=== PATIENT | female | born 1960 | race Caucasian/White ===

== ENCOUNTER 2024-08-02 13:31 | Outpatient (CLI) | payer MEDICARE, OTHER, SELFPAY ==
--- NOTE | ~2024-08-02 | MR_ITS ---
MRI of the abdomen: Clinical indication: Normal liver enzymes. Technique: Coronal SSFSE ARC, WATER:coronal LAVA-FLEX, Coronal 2D FIESTA FatSat, Axial SSFSE BH ARC, Axial 3D DualEcho BH, Axial SSFSE-IR, Axial DWI b=500, Axial 2D FIESTA FatSat, pre and dynamic postco ntrast Axial LAVA ARC, postcontrast Coronal In and Opposed phase LAVA FLEX. Following intravenous ad ministration of 19 cc MultiHance gadolinium, T1-weighted fat-sat imaging was performed in the axial a nd coronal planes. Findings: Common bile duct is dilated up to 12 mm, which is most likely related to prior cholecystect darrius. No filling defects are seen within the CBD. No evidence of intrahepatic biliary ductal dilatatio n. The pancreatic duct is normal in size. Liver, spleen, pancreas, adrenals, kidneys otherwise appear normal. The aorta and the paraaortic caden ons appear normal. Impression: Dilated common bile duct is most likely related to prior cholecystectomy. No other significant findings. Reviewed, dictated and finalized at location M. Impression: Dilated common bile duct is most likely related to prior cholecystectomy. No other significant findings.
--- OUTSIDE RECORDS SUMMARY | 2024-08-02 13:41 | XMS_ITS | Continuity of Care Document ---
Author Organization [facility] Address [address] [place] [address] [address] [place] [address] Phone Care Team Providers Care Shear Setter Name Role Phone Micaela Boudreaux DO Unavailable Unavailable Procedures Procedure Date [facility] Screen Collection Medical Review Officer Advance Directives Directive Yes / No Effective Date File Name No Information Encounters Encounter Description Practice Location Reason(s) For Visit Diagnoses Date Provider Providers Copied on Encounter [facility], [address] [place], [place] [address], [id number], tel:[phone] [facility] Occupational Health Examination 2 Kanika Hinojosa. [address] [place] [address], [place] [address], [place], [place], [id number] , . tel:[phone] Family History Family Member Type Diagnosis Age At Onset No Information Payers Payer name Insurance type Covered republican ID Authoriza tion(s) [employer] [id number] Social History Type Description Quantity Date Captured Comments Sex Female Smoking Status No Information Chief Complaint And Reason For Visit No Information Reason For Referral Reason For Referral No Information History Of Present Illness Encounter Date Complaint History Of Prese nt Illness No Information Functional Status Date Functional Assessmen t No Information Instructions Date Instruction Additional Infor mation No Information Assessments Type Assessment Date No Information Patient Care Teams Name Effective Dates (start - stop) Status Members No Information
--- OUTSIDE RECORDS SUMMARY | 2024-08-02 13:41 | XMS_ITS | CONTINUITY OF CARE DOCUMENT ---
Author Name sean, sean Address Unknown Organization [facility] Address [address] [place] [address] Phone [phone] Care Team Providers Care Stitcher Standard Machine Name Role Phone Alyson Garham MD Unavailable [phone] SAMAN RENTERIA MD Unavailable SAMAN RENTERIA MD Unavailable [phone] PROBLEMS Condition Status Date Provider Notes Other symptoms involving car diovascular system active Alyson Graham MD Cardiology examination active Alyson jeffries MD Preop cardiovasc. examination active Stan Graham MD Exposure to SARS-associated coronavirus active Alyson Graham MD Chest discomfort active Essence Thomas Edema - generalized active Alyson Graham MD Edema active Alyson Graham MD Sleep apnea active Alyson Graham MD Hypertension active ? Alyson Graham MD Atrial Fibrillation active ? Alyson Graham MD ENCOUNTERS Date Type Provider Location Encounter Diag nosis - In-person encounter Office Visit Alyson Graham MD [facility] Office Cardiology examination - In-person encounter Office Visit Alyson Graham MD [place] [facility] - In-person encounter Office Visit Alyson Graham MD [facility] - In-person encounter Office Visit Alyson Graham MD [facility] - In-person encounter Office Visit Alyson Graham MD [facility] - In-person encounter Office Visit Alyson Graham MD [place] [facility] Preop cardiovasc. examination - In-person encounter Office Visit Alyson Graham MD [facility] [facility] Exposure to SARS-associated coronavirus - In-person encounter Office Visit Alyson Graham MD [facility] - In-person encounter Office Visit Alyson Graham MD [facility] - In-person encounter Office Visit Alyson Graham MD [facility] Chest discomfort - In-person encounter Office Visit Alyson Graham MD [facility] - In-person encounter Office Visit Alyson Graham MD [facility] - In-person encounter Office Visit Alyson Graham MD [facility] Edema - generalized - In-person encounter Office Visit Alyson Graham MD [facility] - In-person encounter Office Visit Alyson Graham MD [facility] - In-person encounter Office Visit Alyson Graham MD [facility] - In-person encounter Office Visit Alyson Graham MD [facility] - In-person encounter Office Visit Alyson Graham MD [facility] Edema - In-person encounter Office Visit Alyson Graham MD [facility] Sleep apnea - In-person encounter Office Visit Alyson Graham MD [facility] Other symptoms involving cardiovascular systemAtrial FibrillationHypertension VITAL SIGNS Date Observation Value Provider blood pressure, diastolic 85 mm[Hg] Li nkLogic blood pressure, systolic 132 mm[Hg] [place] kLogic blood pressure, cuff size regular Alcon jackson [facility] blood pressure, diastolic 85 mm[Hg] Alcon jackson Ruple blood pressure, systolic 132 mm[Hg] Tasha burr [facility] oxygen saturation, oximetry 99 % Antionette [facility] pulse rate 73 /min Antionette [facility] height E&M 61 [in_i] [facility] Body Mass Index (Ratio) 36.09 kg/m2 Prosper Graham MD blood pressure, diastolic 91 mm[Hg] Fidelia nkLogic blood pressure, systolic 142 mm[Hg] [place] ogic blood pressure, cuff size regular [facility] blood pressure, diastolic 91 mm[Hg] [facility] blood pressure, systolic 142 mm[Hg] [facility] pulse rate 67 /min [facility] oxygen saturation, oximetry 98 % [facility] respiratory rate E&M 14 /min Juanita Berry iller weight E&M 191 [lb_av] [facility] height E&M 61 [in_i] [facility] Body Mass Index (Ratio) 34.38 kg/m2 Prosper Graham MD blood pressure, diastolic 89 mm[Hg] Li nkLogic blood pressure, systolic 149 mm[Hg] [place] kLogic blood pressure, cuff size regular Maximino rret blood pressure, diastolic 89 mm[Hg] Ja rret blood pressure, systolic 149 mm[Hg] Jar ret pulse rate 78 /min [facility] respiratory rate E&M 12 /min oxygen saturation, oximetry 99 % [facility] weight E&M 182 [lb_av] [facility] height E&M 61 [in_i] [facility] Body Mass Index (Ratio) 35.14 kg/m2 Prosper Graham MD blood pressure, diastolic 86 mm[Hg] Fidelia nkLogbeth blood pressure, systolic 150 mm[Hg] [place] Romeoogbeth blood pressure, diastolic 86 mm[Hg] St tia Figueroa blood pressure, systolic 150 mm[Hg] Sta leonardo Figueroa oxygen saturation, oximetry 98 % Sarika Figueroa pulse rate 76 /min Sarikaleonardo Figueroa respiratory rate E&M 18 /min Sarika novak weight E&M 186 [lb_av] Sarika Henry height E&M 61 [in_i] Sarika Henry Body Mass Index (Ratio) 38.92 kg/m2 Prosper Graham MD blood pressure, diastolic 69 mm[Hg] Fidelia nkLogic blood pressure, systolic 130 mm[Hg] [place] kLogic blood pressure, diastolic 69 mm[Hg] Ri damaso William blood pressure, systolic 130 mm[Hg] Brent ana cristina William blood pressure, cuff size large Sepideh Thomas respiratory rate E&M 14 /min Tennille Thomas oxygen saturation, oximetry 98 % Jenny Thomas pulse rate 66 /min Jenny Titus son weight E&M 206 [lb_av] Jenny Kimberlyrodolfo son height E&M 61 [in_i] Jenny Kimberlyrodolfo son Body Mass Index (Ratio) 49.88 kg/m2 Prosper Graham MD blood pressure, diastolic 80 mm[Hg] Li nkLogic blood pressure, systolic 170 mm[Hg] [place] kLogic blood pressure, diastolic 80 mm[Hg] Ca therine Demario blood pressure, systolic 170 mm[Hg] Cat herine Demario oxygen saturation, oximetry 95 % Krysta Demario respiratory rate E&M 16 /min Catheri ne Demario pulse rate 90 /min Krysta Greenwood weight E&M 264 [lb_av] Krysta Greenwood blood pressure, cuff size regular Ca therine Demaroi height E&M 61 [in_i] Krysta Demario Body Mass Index (Ratio) 49.12 kg/m2 Prosper Graham MD blood pressure, diastolic 90 mm[Hg] Sa sybil Graham MD blood pressure, systolic 160 mm[Hg] Domingo Graham MD height E&M 61 [in_i] Alyson moy MD weight E&M 260 [lb_av] Alyson moy MD Body Mass Index (Ratio) 42.51 kg/m2 Prosper Graham MD blood pressure, resting Yes Brit hari Block pulse rate 81 /min Aniya Block blood pressure, diastolic 82 mm[Hg] Br ittany Block blood pressure, systolic 150 mm[Hg] Mariela ttany Block oxygen saturation, oximetry 98 % Aniya Block weight E&M 225 [lb_av] Aniya Block respiratory rate E&M 16 /min Brittan y Block height E&M 61 [in_i] Aniya Block Body Mass Index (Ratio) 47.91 kg/m2 Cheikh Plurad blood pressure, diastolic 79 mm[Hg] Darwin Thompson blood pressure, systolic 156 mm[Hg] Beata Thompson oxygen saturation, oximetry 98 % Rick Thompson respiratory rate E&M 18 /min Candace Thompson pulse rate 73 /min Rick Fox nson weight E&M 253.6 [lb_av] Rick Ching enson height E&M 61 [in_i] Rick Fox nson Body Mass Index (Ratio) 47.61 kg/m2 Zarina bettina Thomas blood pressure, diastolic 90 mm[Hg] Da sherri Rani blood pressure, systolic 152 mm[Hg] Dac ia Rani oxygen saturation, oximetry 97 % Onelia Rani respiratory rate E&M 16 /min Onelia V oss pulse rate 75 /min Onelia Rani weight E&M 252 [lb_av] Onelia Rani height E&M 61 [in_i] Onelia Rani Body Mass Index (Ratio) 46.89 kg/m2 Prosper Graham MD blood pressure, diastolic 103 mm[Hg] Darwin Thompson blood pressure, systolic 167 mm[Hg] Beata Boo Thompson oxygen saturation, oximetry 100 % Rick hTompson respiratory rate E&M 18 /min Candace Thompson pulse rate 100 /min Rick Fox nson weight E&M 248.2 [lb_av] Rick morganon height E&M 61 [in_i] Rick Fox nson blood pressure, diastolic 80 mm[Hg] Darwin monahan O'Feliciano blood pressure, systolic 12 mm[Hg] Beata cortes O'Feliciano pulse rate 90 /min Charline O'Feliciano oxygen saturation, oximetry 97 % Charline Feliciano respiratory rate E&M 18 /min [facility] Body Mass Index (Ratio) 44.59 kg/m2 Andrew JeffriesFeliciano weight E&M 236 [lb_av] Charline Feliciano blood pressure, diastolic 80 mm[Hg] Neftaly davalosi Forrestana luisathe [facility] blood [facility], systolic 140 mm[Hg] Rudy galindo [facility] pulse rate 81 /min Barbara Pranav er oxygen saturation, oximetry 97 % Barbara Rachael respiratory rate E&M 16 /min Barbara Lugo angelinabrattleboro memorial hospital[facility]olfo Body Mass Index (Ratio) 46.48 kg/m2 Patience baldwin Rachael weight E&M 246 [lb_av] Barbara Claytonshiv lder blood pressure, diastolic 89 mm[Hg] Nm burak Isabel blood pressure, systolic 156 mm[Hg] Penelope Isabel oxygen saturation, oximetry 97 % Nirmala Isabel respiratory rate E&M 18 /min Nirmala Chalo pulse rate 82 /min Nirmala Isabel Body Mass Index (Ratio) 44.32 kg/m2 Mayte Isabel weight E&M 234.6 [lb_av] Nirmala Chalo blood pressure, diastolic 76 mm[Hg] Kr isty Berwick blood pressure, systolic 124 mm[Hg] Sivakumari sthallie Berwick pulse rate 82 /min Kayla Berwick oxygen saturation, oximetry 98 % Kayla Rachel respiratory rate E&M 16 /min Kayla Berwick Body Mass Index (Ratio) 44.36 kg/m2 Bonilla Ramos weight E&M 234.8 [lb_av] Kayla Rachel blood pressure, diastolic 81 mm[Hg] Me burak Chalo blood pressure, systolic 149 mm[Hg] Penelope bridgette Chalo respiratory rate E&M 18 /min Nirmala Chalo pulse rate 85 /min Nirmala Chalo oxygen saturation, oximetry 98 % Nirmala Chalo Body Mass Index (Ratio) 45.15 kg/m2 Mayte webber Chalo weight E&M 239.0 [lb_av] Nirmala Chalo Body Mass Index (Ratio) 44.06 kg/m2 Javier Melvindney blood pressure, diastolic 90 mm[Hg] Peter blackburn Chay blood pressure, systolic 142 mm[Hg] Aaliyah castillo Chay pulse rate 70 /min Ortiz Melvindney oxygen saturation, oximetry 97 % Ortiz Melvindney respiratory rate E&M 17 /min Ortiz Chay weight E&M 233.2 [lb_av] Ortiz Melvindney Body Mass Index (Ratio) 43.83 kg/m2 Mayte Isabel blood pressure, diastolic 80 mm[Hg] Me burak Chalo blood pressure, systolic 138 mm[Hg] Penelope bridgette Chalo pulse rate 71 /min Nirmala Chalo oxygen saturation, oximetry 97 % Nirmala Chalo respiratory rate E&M 16 /min Nirmala Chalo weight E&M 232 [lb_av] Nirmala Chalo blood pressure, diastolic 10 mm[Hg] Me burak Chalo blood pressure, systolic 152 mm[Hg] Penelope bridgette Chalo pulse rate 81 /min Nirmala Chalo oxygen saturation, oximetry 97 % Nirmala Chalo respiratory rate E&M 16 /min Nirmala Chalo height E&M 61 [in_i] Nirmala Chalo weight E&M 227.2 [lb_av] Nirmala Chalo ALLERGIES Allergy Name Onset Date Reaction Criticality Status AUGMENTIN High Criticality active SULFA Low Criticality active RESULTS Date Observation Value Provider Reference Range Interpretation Location pro brain natriuretic peptide 19.6 pg/mL LinkLog[facility] 0.0 - 125.0 urea nitrogen/creatini ne ratio, serum 11.0 [facility] - Estimated Glomerular Filtration Rate (calc) 60.7 (?) [facility] 59.0 - chloride, serum 102.7 mmol/L [facility] 98.0 - 107.0 potassium, serum 4.2 mmol/L [facility] 3.5 - 5.1 sodium, serum 143.0 mmol/L [facility] 136.0 - 145.0 creatinine, serum 1.0 mg/dL [facility] 0.5 - 1.0 High carbon dioxide, venous blood 27.0 mmol/L [facility] 22.0 - 29.0 calcium, serum 9.5 mg/dL [facility] 8.6 - 10.2 urea nitrogen, blood 11.0 mg/dL [facility] 6.0 - 20.0 blood glucose, random 97.0 mg/dL [facility] 74.0 - 99.0 thyroid stimulating hormone, serum 2.390 ?IU/ML [facility] 0.270 - 4.200 urea nitrogen/creatini ne ratio, serum 23.3 [facility] - Estimated Glomerular Filtration Rate (calc) 109.9 (?) [facility] 59.0 - chloride, serum 100.4 mmol/L [facility] 98.0 - 107.0 potassium, serum 4.4 mmol/L [facility] 3.5 - 5.1 sodium, serum 141.0 mmol/L [facility] 136.0 - 145.0 creatinine, serum 0.6 mg/dL [facility] 0.5 - 0.9 carbon dioxide, venous blood 25.0 mmol/L [facility] 22.0 - 29.0 calcium, serum 9.7 mg/dL [facility] 8.6 - 10.2 urea nitrogen, blood 14.0 mg/dL [facility] 6.0 - 20.0 blood glucose, random 116.0 mg/dL [facility] 74.0 - 99.0 High HISTORY OF MEDICATION USE Medication Status Instructions Dates Provider Indications [facility] lisinopril 10 mg tablet active Take 1 tablet by mouth twice a day 06/14 Barbara Cano bumetanide 1 mg tablet active Take 1 tablet by mouth once a day 06/14 Barbara Cano metoprolol tartrate 25 mg tablet active Take 1 tablet by mouth twice a day 06/14 Barbara Cano lisinopril 10 mg tablet completed TAKE 1 TABLET TWICE A DAY 06/10 - 06/14 Barbara Cano metoprolol tartrate 25 mg tablet completed TAKE 1 TABLET TWICE A DAY 06/10 - 06/14 Barbara Cano digoxin 125 mcg (0.125 mg) tablet completed TAKE 1 TABLET DAILY 07/15 - Alyson Graham MD Zoloft 25 mg tablet active Take 1 table t once a day 05/14 Alyson Graham MD calcitriol 0.25 mcg capsule active twice a day Rick Thompson VITAMIN D2 TABLET active 1 tablet once a week Charlnie Rodarte bumetanide 1 mg tablet completed once a day - 06/14 Barbara Cano EST ESTROGENS-METHYLTEST TABLET completed once daily - 10/28 Barbara Cano VITAMIN D TABS active once a day Kayla Ramos SPIRONOLACTONE 25 MG ORAL TABLET completed take one tab daily 05/05 - 05/23 Kayla Ramos CLOPIDOGREL BISULFATE 75 MG ORAL TABLET completed take one tab daily 05/05 - 05/23 Kayla Ramos ASPIR-81 81 MG ORAL TABLET DELAYED RELEASE active once a day Alyson Graham MD EDECRIN 25 MG ORAL TABLET completed once daily 12/13 - Charline Grant'Feliciano PREDNISONE 20 MG ORAL TABLET completed TWO TABS BY MOUTH ONCE DAILY - 10/28 Nirmala Isabel NEXIUM 22.3 MG ORAL CPDR completed once a day as needed - 08/21 Alyson Graham MD HYDROCHLOROTHIAZIDE 12.5 MG ORAL CAPSULE completed ONE TAB. DAILY 08/16 - 11/21 Gracie Butcher RN lisinopril 20 mg tablet completed Take 1 tablet once a day Take 1/2 tab if BP below 110 systolic 08/06 - 04/02 Kulwant Montes De Oca RN digoxin 125 mcg (0.125 mg) tablet completed Take 1 tablet once a day - 07/15 Napoleon Benoit ASPIRIN 325 MG ORAL TABLET completed once daily - 10/28 Nirmala Isabel metoprolol tartrate 25 mg tablet completed Take 1 tablet twice a day 08/06 - 06/10 [facility] SOCIAL HISTORY Date Observation Value Provider alcohol use no Alyson moy MD smoking, year quit 2014 Alyson Graham MD number of years as a smoker 25 a Alyson Graham MD smoking, date started 83 Stan Graham MD smoking history, tot al pack/year 1930 Alyson Graham MD smoking history, tot al pack/day 1 Alyson Graham MD cigarette use yes Alyson root MD smoking status Former smoker Alyson alvarez MD alcohol use no Alyson moy MD smoking, year quit 2014 Alyson Graham MD number of years as a smoker 25 a Alyson Graham MD smoking, date started 85 Stan Graham MD smoking history, tot al pack/year 1930 Alyson Graham MD smoking history, tot al pack/day 1 Alyson Graham MD cigarette use yes Alyson root MD smoking status Former smoker Alyson alvarez MD alcohol use no Lakisha Ventimig anam [facility] smoking, year quit 2014 Lakisha Ve ntimiglia [facility] number of years as a smoker 25 a Lakisha Ventimiglia [facility] smoking, date started 85 Lakisha Ventimiglia [facility] smoking history, tot al pack/year 1930 Lakisha Ventimiglia [facility] smoking history, tot al pack/day 1 Lakisha Ventimiglia [facility] cigarette use yes Lakisha Ventimi glia [facility] smoking status Former smoker Lakisha Venti miglia [facility] social history E&M QUIT APR 06 Smoking History: P odilia is a former smoker. Alyson Graham MD social history reviewed E&M revi ewed - no changes required Alyson Graham MD smoking, year quit 2014 Sarikaleonardo zuniga number of years as a smoker 25 a Sarika Figueroa smoking, date started 85 Sarika Figueroa smoking history, tot al pack/year 1930 Sarikaleonardo Figueroa smoking history, tot al pack/day 1 Sarikaleonardo Figueroa cigarette use yes Sarikaleonardo Figueroa smoking status Former smoker Sarikaleonardo Figueroa alcohol use no Shawna Coello social history E&M QUIT APR 06 Smoking History: Sadia hartley is a former smoker. Alyson Graham MD social history reviewed E&M revi ewed - no changes required Alyson Graham MD smoking, year quit 2014 Jenny Thomas number of years as a smoker 25 a Jenny Thomas smoking, date started 83 Chilo Carrillo smoking history, tot al pack/year 1930 Jenny Thomas smoking history, tot al pack/day 1 Jenny Thomas cigarette use yes Jenny hanley smoking status Former smoker Jenny sparks smoking history, tot al pack/year 193 Kulwant Montes De Oca RN social history reviewed E&M revi ewed - no changes required Alyson Graham MD social history E&M QUIT APR 06 Smoking History: Sadia hartley is a former smoker. Alyson Graham MD smoking, year quit 2014 Krysta Demario number of years as a smoker 25 a Krysta Greenwood smoking, date started 83 Cather ine Greenwood smoking history, tot al pack/year 193 Krysta Greenwood smoking history, tot al pack/day 1 Krysta Greenwood cigarette use yes Krysta Greenwood smoking status Former smoker Krysta Ot is social history reviewed E&M revi ewed - no changes required Alyson Graham MD smoking status Former smoker Alyson alvarez MD social history E&M QUIT APR 06 Smoking History: Sadia hartley is a former smoker. Alyson Graham MD social history reviewed E&M revi ewed - no changes required Alyson Graham MD smoking, year quit 2014 Aniya Block number of years as a smoker 25 a Aniya Block smoking, date started 83 Chrissie ny Block smoking history, tot al pack/year 1933 Aniya Block smoking history, tot al pack/day 1 Aniya Block cigarette use yes Aniya Block social history reviewed E&M revi ewed - no changes required Alyson Graham MD social history E&M QUIT APR 06 Smoking History: Sadia hartley is a former smoker. Alyson Graham MD alcohol use no Rick Fox nson smoking, year quit 2014 Rick Thompson number of years as a smoker 25 a Rick Thompson smoking, date started 83 Alyssa Thompson smoking history, tot al pack/year 193 Rick Thompson smoking history, tot al pack/day 1 Rick Chingenson cigarette use yes Rick morganon smoking status Former smoker Rick Perez smoking history, tot al pack/year 193 Lizzette Freeman RN social history reviewed E&M revi ewed - no changes required Alyson Graham MD social history E&M QUIT APR 06 Smoking History: Sadia hartley is a former smoker. Alyson Graham MD alcohol use no Onelia Rani smoking, year quit 2014 Onelia Miles s number of years as a smoker 25 a Onelia Rani smoking, date started 83 Onelia Rani smoking history, tot al pack/year 193 Onelia Rani smoking history, tot al pack/day 1 Onelia Rani cigarette use yes Onelia Rani smoking status Former smoker Onelia Rani number of grandchildren Alyson Graham MD social history reviewed E&M revi ewed - no changes required Alyson Graham MD social history E&M QUIT APR 06 Smoking History: Sadia hartley is a former smoker. Alyson Graham MD alcohol use no Rick Fox nson smoking, year quit 2014 Rick Thompson number of years as a smoker 25 a Rick Thompson smoking, date started 83 Alyssa Thompson smoking history, tot al pack/year 193 Rick Thompson smoking history, tot al pack/day 1 Rick Thompson cigarette use yes Rick kinsey smoking status Former smoker Rick Perez social history E&M QUIT APR 06 Smoking History: Sadia hartley is a former smoker. Alyson Graham MD social history reviewed E&M revi ewed - no changes required Alyson Graham MD cigarette use yes Charline Rodarte smoking status Former smoker Charline Juanita'Jennifer l social history reviewed E&M revi ewed - no changes required Alyson Graham MD alcohol use no Barbara Robertsonnfe lder smoking status Former smoker Barbara Robertson nfelder social history E&M QUIT APR 06 Smoking History: Sadia hartley is a former smoker. Alsyon Graham MD smoking, year quit 2014 Nirmala Zamudio ing number of years as a smoker 25 a Nirmala Isabel smoking, date started 83 Lele Isabel smoking history, tot al pack/year 193 Nirmala Chalo smoking history, tot al pack/day 1 Nirmala Chalo cigarette use yes Nirmala Isabel smoking status Former smoker Nirmala Isabel smoking history, tot al pack/year 193 Gracie Curtis RN social history reviewed E&M revi ewed - no changes required Alyson Graham MD smoking, year quit 2014 Nirmala Zamudio ing number of years as a smoker 25 a Nirmala Chalo smoking, date started 83 Penelopeiss a Chalo smoking history, tot al pack/year 193 Nirmalabridgette Isabel smoking history, tot al pack/day 1 Nirmala Isabel cigarette use yes Nirmala Isabel smoking status Former smoker Nirmala Isabel social history E&M QUIT APR 06 2014 Stan Graham MD smoking status Former smoker Alyson alvarez MD social history reviewed E&M revi ewed - no changes required Alyson Graham MD smoking history, tot al pack/year 193 Gracie Butcher RN social history reviewed E&M revi ewed - no changes required Alyson Graham MD smoking, year quit 2014 Nirmala guajardo number of years as a smoker 25 a Nirmala Isabel smoking, date started 85 Lele Isabel smoking history, tot al pack/day 1 Nirmala Isabel cigarette use yes Nirmala Isabel smoking status Former smoker Nirmala Isabel social history reviewed E&M revi ewed - no changes required Alyson Graham MD number of years as a smoker 25 a Nirmala Isabel smoking, year quit 2014 Nirmala guajardo smoking, date started 85 Lele Isabel smoking history, tot al pack/day 1 Nirmala Isabel cigarette use yes Nirmala Isabel smoking status Former smoker Nirmala Isabel FAMILY HISTORY Family Member Condition Father Family History of Co ronary Artery Disease: Mother Family History of Co ngestive Heart Failure: Mother Family History of Co ronary Artery Disease: INSURANCE PROVIDERS Payer name Policy type / Coverage type [place] [employer] party [place]IC[place] B Medicare [id number] [facility] [id number] [place]IC[place] Medicare [id number] ADVANCE DIRECTIVES Name Date DISCUSSED - NO DECISION MADE TREATMENT PLAN Date Name Performer [id number],C, H er updated medication list for this problem includes: Metoprolol Tartrate 25 Mg Tablet (Metoprolol tartrate) ..... Take 1 tablet twice a day Lisinopril 10 Mg Tablet (Lisinopril) ..... Take 1 tablet twice a day Bumetanide 1 Mg Tablet (Bumetanide) ..... Once a day Alyson Graham MD [id number],C, H er updated medication list for this problem includes: Metoprolol Tartrate 25 Mg Tablet (Metoprolol tartrate) ..... Take 1 tablet twice a day Alyson Graham MD [id number],C, O n CPAP. Has not had settings adjusted in years. Had recent titration study. Recommended to remain at 8 T he patient is using CPAP on a regular basis. The patient has been benefiting from therapy and should continue use. April 10, 2020 mychal villar has autopap and had new machine this past fallJuly 04, 2021 T he patient is using CPAP on a regular basis. The patient has been benefiting from therapy and should continue use. January 02, 2022 C ontinue with CPAP use despite weight loss Alyson Graham MD [id number],C, O n CPAP. Has not had settings adjusted in years. Had recent titration study. Recommended to remain at 8 T he patient is using CPAP on a regular basis. The patient has been benefiting from therapy and should continue use. April 10, 2020 mychal villar has autopap and had new machine this past fallJuly 04, 2021 T he patient is using CPAP on a regular basis. The patient has been benefiting from therapy and should continue use. January 02, 2022 C ontinue with CPAP use despite weight loss August 21, 2022 T he patient is using CPAP on a regular basis. The patient has been benefiting from therapy and should continue use. Alyson Graham MD [id number],C, O n CPAP. Has not had settings adjusted in years. Had recent titration study. Recommended to remain at 8 T he patient is using CPAP on a regular basis. The patient has been benefiting from therapy and should continue use. April 10, 2020 mychal villar has autopap and had new machine this past fallJuly 04, 2021 T he patient is using CPAP on a regular basis. The patient has been benefiting from therapy and should continue use. January 02, 2022 C ontinue with CPAP use despite weight loss Alyson Graham MD [id number],S,I mproved with weight loss, can take Bumex every other day Alyson Graham MD [id number],C,O ctober 2021 R educe lisinopril to 20 daily, reduce metoprolol to 25 mg twice a day BP today: 130/69 P rior BP: 170/80 (07/04/2021) Labs Reviewed: C reat: 1.0 (10/22/2015) Alyson Graham MD [id number],C,D iscontinue digoxin, maintained in NSR. Lost 60 lbs of weight Alyson Graham MD [id number],C, J anuary 2021 R are palpitations Her updated medication list for this problem includes: Metoprolol Tartrate 50 Mg Tablet (Metoprolol tartrate) ..... Take 1 tablet twice a day Digoxin 125 Mcg (0.125 Mg) Tablet (Digoxin) ..... Take 1 tablet once a day Alyson Graham MD [id number],C,B Ps at home are in the 140s range. B P today: 170/80 P rior BP: 160/90 (04/02/2021) Labs Reviewed: C reat: 1.0 (10/22/2015) Alyson Graham MD [id number],C, U lyndon review of noninvasive testing and recent exam the patient is an acceptable candidate for the planned surgical procedure recommend to maintain his blood pressure range of 110 to 140 mmHg and a heart rate of 60-80 B p.m.. It is okay to use IV beta blockers calcium channel blockers nitrates and afterload reducing agents to maintain the aforementioned hemodynamics parameters. Tele monitoring and EKG should be done if the patient has arrhythmia during procedure Stress 04/26/17 FINDINGS: No perfusion defects on the stress or rest images. Wall m otion is normal. Left ventricular ejection fraction is 83%. I MPRESSION: 1 . No evidence of myocardial infarct or stress-induced ischemia. 2 . Normal wall motion and LVEF. Echo 04/23/20 CONCLUSIONS: 1 . Technically difficult study, secondary to poor acoustic windows. There is poor endocardial visualization. Interpretation is based on available limited views. Normal left ventricular systolic function. Normal left ventricular size. Normal left ventricular wall thickness. There is E to A wave reversal consistent with impaired LV relaxation. E/E': 7.8. Left ventricular ejection fraction is measured at 65 %. 2 . Normal right ventricular size. Normal right ventricular systolic function. 3 . The left atrium is normal in size. There is mild enlargement of the left atrium. Left atrial volume index is 2808.0. LA volume is 61 mL. 4 . There is trace physiologic mitral valve regurgitation. Alyson Graham MD [id number],S, O n CPAP. Has not had settings adjusted in years. Had recent titration study. Recommended to remain at 8 T he patient is using CPAP on a regular basis. The patient has been benefiting from therapy and should continue use. April 10, 2020 n ow has autopap and had new machine this past fallJuly 04, 2021 T he patient is using CPAP on a regular basis. The patient has been benefiting from therapy and should continue use. Alyson Graham MD [id number],S,P ossibly exposed to Covid from daughter who has Lupus and is not vaccinated, pt is vaccinated. Alyson Graham MD [id number],C,J anuary 2021 R are palpitations Her updated medication list for this problem includes: Metoprolol Tartrate 50 Mg Tablet (Metoprolol tartrate) ..... Take 1 tablet twice a day Digoxin 125 Mcg (0.125 Mg) Tablet (Digoxin) ..... Take 1 tablet once a day Alyson Graham MD [id number],C, n o new cp no new ER visitis Alyson Graham MD [id number],C, O n CPAP. Has not had settings adjusted in years. Had recent titration study. Recommended to remain at 8 T he patient is using CPAP on a regular basis. The patient has been benefiting from therapy and should continue use. April 10, 2020 mychal villar has autopap and had new machine this past fall Alyson Graham MD [id number],C,A djusted BP meds, she has been having high BP, increased Lisinopril to 20 mg BID H er updated medication list for this problem includes: Metoprolol Tartrate 50 Mg Tablet (Metoprolol tartrate) ..... Take 1 tablet twice a day Bumetanide 1 Mg Oral Tablet (Bumetanide) ..... Once daily Aspir-81 81 Mg Oral Tablet Delayed Release (Aspirin) ..... Once daily Lisinopril Tabs 10mg (Lisinopril) ..... Take 1 tablet twice a day Alyson Graham MD Cardiology: raul escobar remains in SR. Recommend she start using CPAP again. Her updated medication list for this problem includes: Metoprolol Tartrate 25 Mg Tablet (Metoprolol tartrate) ..... Take 1 tablet twice a day Alyson Graham MD Cardiology:This visi t has been a part of the consistent, comprehensive, and ongoing management of the chronic medical condition(s) listed above for the patient. H er updated medication list for this problem includes: Lisinopril 10 Mg Tablet (Lisinopril) ..... Take 1 tablet by mouth twice a day Bumetanide 1 Mg Tablet (Bumetanide) ..... Take 1 tablet by mouth once a day Metoprolol Tartrate 25 Mg Tablet (Metoprolol tartrate) ..... Take 1 tablet by mouth twice a day BP today: 132/85 P rior BP: 142/91 (07/09/2023) Labs Reviewed: Raul reat: 1.0 (10/22/2015) Alyson Graham MD Cardiology:CONCLUSIO NS: 1 . Normal left ventricular systolic function. Normal left ventricular size. Normal left ventricular wall thickness. There is E to A w ave reversal consistent with impaired LV relaxation. E/E': 5.9. Left ventricular ejection fraction is measured at 60 %. 2 . Normal right ventricular size. Normal right ventricular systolic function. 3 . Normal appearing mitral valve leaflets. Mild mitral valve regurgitation Alyson Graham MD Cardiology: O n CPAP. Has not had settings adjusted in years. Had recent titration study. Recommended to remain at 8 T he patient is using CPAP on a regular basis. The patient has been benefiting from therapy and should continue use. April 10, 2020 n ow has autopap and had new machine this past fall July 04, 2021 T he patient is using CPAP on a regular basis. The patient has been benefiting from therapy and should continue use. January 02, 2022 C ontinue with CPAP use despite weight loss March 18, 2023 ' H as not been using CPAP after COVID infection July 09, 2023 T he patient is using CPAP on a regular basis. The patient has been benefiting from therapy and should continue use. January 07, 2024 T he patient is using CPAP on a regular basis. The patient has been benefiting from therapy and should continue use. T his visit has been a part of the consistent, comprehensive, and ongoing management of the chronic medical condition(s) listed above for the patient. Alyson Graham MD Cardiology: raul luz remains in SR. Recommend she start using CPAP again. Her updated medication list for this problem includes: Metoprolol Tartrate 25 Mg Tablet (Metoprolol tartrate) ..... Take 1 tablet twice a day Alyson Graham MD Cardiology: n o new cp no new ER visitis C ONCLUSIONS: 1 . Normal left ventricular systolic function. Normal left ventricular size. Normal left ventricular wall thickness. There is E to A w ave reversal consistent with impaired LV relaxation. E/E': 5.9. Left ventricular ejection fraction is measured at 60 %. 2 . Normal right ventricular size. Normal right ventricular systolic function. 3 . Normal appearing mitral valve leaflets. Mild mitral valve regurgitation E lectronically signed by Alyson Graham MD on 04/21/2023 at 2:54 PM Alyson Graham MD Cardiology: O n CPAP. Has not had settings adjusted in years. Had recent titration study. Recommended to remain at 8 T he patient is using CPAP on a regular basis. The patient has been benefiting from therapy and should continue use. April 10, 2020 n ow has autopap and had new machine this past fall July 04, 2021 T he patient is using CPAP on a regular basis. The patient has been benefiting from therapy and should continue use. January 02, 2022 C ontinue with CPAP use despite weight loss March 18, 2023 ' H as not been using CPAP after COVID infection July 09, 2023 T he patient is using CPAP on a regular basis. The patient has been benefiting from therapy and should continue use. Alyson Graham MD Cardiology: H er updated medication list for this problem includes: Lisinopril 10 Mg Tablet (Lisinopril) ..... Take 1 tablet by mouth twice a day Bumetanide 1 Mg Tablet (Bumetanide) ..... Take 1 tablet by mouth once a day Metoprolol Tartrate 25 Mg Tablet (Metoprolol tartrate) ..... Take 1 tablet by mouth twice a day BP today: 142/91 P rior BP: 149/89 (03/18/2023) Labs Reviewed: C reat: 1.0 (10/22/2015) Alyson Graham MD Cardiology:currently remains in SR. Recommend she start using CPAP again. Her updated medication list for this problem includes: Metoprolol Tartrate 25 Mg Tablet (Metoprolol tartrate) ..... Take 1 tablet twice a day Alyson Graham MD Cardiology:patient w ill start rpm monitor D iscussion of benefits for remote patient monitoring took place. Patient gives consent for remote monitoring of physiologic parameters including, but not limited to, weight, blood pressure, pulse oximetry, respiratory flow rate. Her updated medication list for this problem includes: Metoprolol Tartrate 25 Mg Tablet (Metoprolol tartrate) ..... Take 1 tablet twice a day Lisinopril 10 Mg Tablet (Lisinopril) ..... Take 1 tablet twice a day Bumetanide 1 Mg Tablet (Bumetanide) ..... Once a day BP today: 149/89 P rior BP: 150/86 (08/21/2022) Labs Reviewed: C reat: 1.0 (10/22/2015) Alyson Graham MD Cardiology: O n CPAP. Has not had settings adjusted in years. Had recent titration study. Recommended to remain at 8 T he patient is using CPAP on a regular basis. The patient has been benefiting from therapy and should continue use. April 10, 2020 n aurea has autopap and had new machine this past fallJuly 04, 2021 T he patient is using CPAP on a regular basis. The patient has been benefiting from therapy and should continue use. January 02, 2022 C ontinue with CPAP use despite weight loss March 18, 2023 ' H as not been using CPAP after COVID infection Alyson Graham MD Cardiology: H er updated medication list for this problem includes: Metoprolol Tartrate 25 Mg Tablet (Metoprolol tartrate) ..... Take 1 tablet twice a day Lisinopril 10 Mg Tablet (Lisinopril) ..... Take 1 tablet twice a day Bumetanide 1 Mg Tablet (Bumetanide) ..... Once a day Alyson Graham MD Cardiology: H er updated medication list for this problem includes: Metoprolol Tartrate 25 Mg Tablet (Metoprolol tartrate) ..... Take 1 tablet twice a day Alyson Graham MD Cardiology: O n CPAP. Has not had settings adjusted in years. Had recent titration study. Recommended to remain at 8 T he patient is using CPAP on a regular basis. The patient has been benefiting from therapy and should continue use. April 10, 2020 n aurea has autopap and had new machine this past fallJuly 04, 2021 T he patient is using CPAP on a regular basis. The patient has been benefiting from therapy and should continue use. January 02, 2022 C ontinue with CPAP use despite weight loss Alyson Graham MD Cardiology: O n CPAP. Has not had settings adjusted in years. Had recent titration study. Recommended to remain at 8 T he patient is using CPAP on a regular basis. The patient has been benefiting from therapy and should continue use. April 10, 2020 n ow has autopap and had new machine this past fallJuly 04, 2021 T he patient is using CPAP on a regular basis. The patient has been benefiting from therapy and should continue use. January 02, 2022 C ontinue with CPAP use despite weight loss August 21, 2022 T he patient is using CPAP on a regular basis. The patient has been benefiting from therapy and should continue use. Alyson rGaham MD Cardiology: O n CPAP. Has not had settings adjusted in years. Had recent titration study. Recommended to remain at 8 T he patient is using CPAP on a regular basis. The patient has been benefiting from therapy and should continue use. April 10, 2020 n ow has autopap and had new machine this past fallJuly 04, 2021 T he patient is using CPAP on a regular basis. The patient has been benefiting from therapy and should continue use. January 02, 2022 C ontinue with CPAP use despite weight loss Alyson Graham MD Cardiology:Improved with weight loss, can take Bumex every other day Alyson Graham MD Cardiology:December R educe lisinopril to 20 daily, reduce metoprolol to 25 mg twice a day BP today: 130/69 P rior BP: 170/80 (07/04/2021) Labs Reviewed: Raul reat: 1.0 (10/22/2015) Alyson Graham MD Cardiology:Discontin ue digoxin, maintained in NSR. Lost 60 lbs of weight Alyson Graham MD Cardiology: Keri jamesuary 2021 R are palpitations Her updated medication list for this problem includes: Metoprolol Tartrate 50 Mg Tablet (Metoprolol tartrate) ..... Take 1 tablet twice a day Digoxin 125 Mcg (0.125 Mg) Tablet (Digoxin) ..... Take 1 tablet once a day Alyson Graham MD Cardiology:BPs at [facility] are in the 140s range. B P today: 170/80 P rior BP: 160/90 (04/02/2021) Labs Reviewed: Raul reat: 1.0 (10/22/2015) Alyson Graham MD Cardiology: U lyndon review of noninvasive testing and recent exam the patient is an acceptable candidate for the planned surgical procedure recommend to maintain his blood pressure range of 110 to 140 mmHg and a heart rate of 60-80 B p.m.. It is okay to use IV beta blockers calcium channel blockers nitrates and afterload reducing agents to maintain the aforementioned hemodynamics parameters. Tele monitoring and EKG should be done if the patient has arrhythmia during procedure Stress 04/26/17 FINDINGS: No perfusion defects on the stress or rest images. Wall m otion is normal. Left ventricular ejection fraction is 83%. I MPRESSION: 1 . No evidence of myocardial infarct or stress-induced ischemia. 2 . Normal wall motion and LVEF. Echo 04/23/20 CONCLUSIONS: 1 . Technically difficult study, secondary to poor acoustic windows. There is poor endocardial visualization. Interpretation is based on available limited views. Normal left ventricular systolic function. Normal left ventricular size. Normal left ventricular wall thickness. There is E to A wave reversal consistent with impaired LV relaxation. E/E': 7.8. Left ventricular ejection fraction is measured at 65 %. 2 . Normal right ventricular size. Normal right ventricular systolic function. 3 . The left atrium is normal in size. There is mild enlargement of the left atrium. Left atrial volume index is 2808.0. LA volume is 61 mL. 4 . There is trace physiologic mitral valve regurgitation. Alyson Graham MD Cardiology: O n CPAP. Has not had settings adjusted in years. Had recent titration study. Recommended to remain at 8 T he patient is using CPAP on a regular basis. The patient has been benefiting from therapy and should continue use. April 10, 2020 n ow has autopap and had new machine this past fall July 04, 2021 T he patient is using CPAP on a regular basis. The patient has been benefiting from therapy and should continue use. Alyson Graham MD TeleHealth:Possibly exposed to Covid from daughter who has Lupus and is not vaccinated, pt is vaccinated. Alyson Graham MD TeleHealth:March R are palpitations Her updated medication list for this problem includes: Metoprolol Tartrate 50 Mg Tablet (Metoprolol tartrate) ..... Take 1 tablet twice a day Digoxin 125 Mcg (0.125 Mg) Tablet (Digoxin) ..... Take 1 tablet once a day Alyson Graham MD TeleHealth: n o new cp no new ER visitis Alyson Graham MD TeleHealth: O n CPAP. Has not had settings adjusted in years. Had recent titration study. Recommended to remain at 8 T he patient is using CPAP on a regular basis. The patient has been benefiting from therapy and should continue use. April 10, 2020 mychal villar has autopap and had new machine this past fall Alyson Graham MD TeleHealth:Adjusted BP meds, she has been having high BP, increased Lisinopril to 20 mg BID H er updated medication list for this problem includes: Metoprolol Tartrate 50 Mg Tablet (Metoprolol tartrate) ..... Take 1 tablet twice a day Bumetanide 1 Mg Oral Tablet (Bumetanide) ..... Once daily Aspir-81 81 Mg Oral Tablet Delayed Release (Aspirin) ..... Once daily Lisinopril Tabs 10mg (Lisinopril) ..... Take 1 tablet twice a day Alyson Graham MD Telehealth:no new cp no new ER v isitis Alyson Graham MD Telehealth Alyson Graham MD Telehealth: O n CPAP. Has not had settings adjusted in years. Had recent titration study. Recommended to remain at 8 T he patient is using CPAP on a regular basis. The patient has been benefiting from therapy and should continue use. April 10, 2020 mychal villar has autopap and had new machine this past fall Alyson Graham MD Telehealth:no new pa lptiations C urrently on CPAP. S R today on EKG. C roland 15-day tele monitor. Was SR. No need for AC at present. I f recurrent or persistent, will need to start blood thinner. Have discussed with patient regarding options for medications. Alyson Graham MD Cardiology: O n CPAP. Has not had settings adjusted in years. Had recent titration study. Recommended to remain at 8 T he patient is using CPAP on a regular basis. The patient has been benefiting from therapy and should continue use. Alyson Graham MD Cardiology:Mildly el evated BP secondary to recent PNA URI. H er updated medication list for this problem includes: Bumetanide 1 Mg Oral Tablet (Bumetanide) ..... Once daily Aspir-81 81 Mg Oral Tablet Delayed Release (Aspirin) ..... Once daily Lisinopril Tabs 10mg (Lisinopril) ..... Take 1 tablet twice a day Metoprolol Tartrate Tabs 50mg (Metoprolol tartrate) ..... Take 1 tablet twice a day BP today: 150/82 P rior BP: 156/79 (09/10/2017) Labs Reviewed: C reat: 1.0 (10/22/2015) Alyson Graham MD Cardiology: R ecently seen in ED. Describes chest pressure. Notices it when HR increases. R hythm: Sinus Rhythm. T he average heart rate was 86BPM with a maximum heart rate of 116BPM. T he minimum heart rate was 55BPM. Alyson Graham MD Cardiology Alyson Graham MD Cardiology:Currently on CPAP. S R today on EKG. C roland 15-day tele monitor. Was SR. No need for AC at present. I f recurrent or persistent, will need to start blood thinner. Have discussed with patient regarding options for medications. Alyson Graham MD Cardiology: O n CPAP. Has not had settings adjusted in years. Had recent titration study. T he patient is using CPAP on a regular basis. The patient has been benefiting from therapy and should continue use. Alyson Graham MD Cardiology Alyson Graham MD Cardiology hospital followup: O n CPAP. Has not had settings adjusted in years. O rders: [facility]kristi [facility] Tele (CPT-[id number]) 9 9215 [facility]IGH Complex (CPT-[id number]) L[facility] Cardiology hospital followup: B P today: 152/90 P rior BP: 167/103 (10/30/2016) Her updated medication list for this problem includes: Bumetanide 1 Mg Oral Tablet (Bumetanide) ..... Once daily Aspir-81 81 Mg Oral Tablet Delayed Release (Aspirin) ..... Once daily Lisinopril 10 Mg Oral Tablet (Lisinopril) ..... Bid Lopressor 50 Mg Oral Tablet (Metoprolol tartrate) ..... One tab twice daily Lacy Thomas Cardiology hospital followup:SR today on EKG. Will check 15-day tele monitor I f recurrent or persistent, will need to start blood thinner. Have discussed with patient regarding options for medications. Alyson Graham MD Cardiology hospital followup:Recently seen in ED. Describes chest pressure. Notices it when HR increases. Will check tele monitor. Alyson Graham MD Cardiology Alyson Graham MD Cardiology: Raul menjivar in sinus rhythm. H er updated medication list for this problem includes: Aspir-81 81 Mg Oral Tbec (Aspirin) ..... Once daily Digoxin 0.125 Mg Tabs (Digoxin) ..... One tab. daily Lopressor 50 Mg Tabs (Metoprolol tartrate) ..... One tab twice daily Alyson Graham MD Cardiology: O mychal Graham MD Cardiology: T he following medications were removed from the medication list: Edecrin 25 Mg Oral Tabs (Ethacrynic acid) ..... Once daily Her updated medication list for this problem includes: Bumetanide 1 Mg Oral Tabs (Bumetanide) ..... Once daily Aspir-81 81 Mg Oral Tbec (Aspirin) ..... Once daily Lisinopril 10 Mg Tabs (Lisinopril) ..... Bid Lopressor 50 Mg Tabs (Metoprolol tartrate) ..... One tab twice daily Alyson Graham MD Cardiology:Lenin sterling in sinus rhythm. H er updated medication list for this problem includes: Aspir-81 81 Mg Oral Tbec (Aspirin) ..... Once daily Digoxin 0.125 Mg Tabs (Digoxin) ..... One tab. daily Lopressor 50 Mg Tabs (Metoprolol tartrate) ..... One tab twice daily Alyson Graham MD Cardiology:On CPAP Alyson jeffries MD Cardiology:Resolved, started on bumex by [employer] manager Dr. Chen. Alyson Graham MD Cardiology Follow up :CONTROLLED H er updated medication list for this problem includes: Aspir-81 81 Mg Oral Tbec (Aspirin) ..... Once daily Edecrin 25 Mg Oral Tabs (Ethacrynic acid) ..... Once daily Lisinopril 10 Mg Tabs (Lisinopril) ..... Bid Lopressor 50 Mg Tabs (Metoprolol tartrate) ..... One tab twice daily Alyson Graham MD Cardiology Follow up :SR TODAY WILL CHECK MONITOR C VALENTINK ECHO FOR DECLINE IN LVEF PT HAS FAM HX OF CHF H er updated medication list for this problem includes: Aspir-81 81 Mg Oral Tbec (Aspirin) ..... Once daily Digoxin 0.125 Mg Tabs (Digoxin) ..... One tab. daily Lopressor 50 Mg Tabs (Metoprolol tartrate) ..... One tab twice daily Alyson Graham MD Cardiology Follow up :ON ARLINE Domingo Graham MD Cardiology Follow up :RENAL CONS TATO CHEN/BRIAN Graham MD Cardiology:WILL INCREASE LOPRESS OR TO 50MG BID Alyson Graham MD Cardiology Alyson Graham MD Cardiology Alyson Graham MD Cardiology: T he following medications were removed from the medication list: Aspirin 325 Mg Oral Tabs (Aspirin) ..... Once daily Her updated medication list for this problem includes: Aspir-81 81 Mg Oral Tbec (Aspirin) ..... Once daily Edecrin 25 Mg Oral Tabs (Ethacrynic acid) ..... Once daily Lisinopril 10 Mg Tabs (Lisinopril) ..... One tab. daily Metoprolol Tartrate 25 Mg Oral Tabs (Metoprolol tartrate) ..... One tab twice daily Alyson Graham MD Cardiology: O rders: [id number] HIGH Complex (CPT-[id number]) B asic Metabolic Panel (L838480, [id number]) T SH ([id number]) [facility] (*) Alyson Graham MD Cardiology Alyson Graham MD Cardiology:NEEDS TO TRY EDACRINE FOR DIURETIC SINCE SHE HAD SKIN RASH WITH HCTZ Alyson Graham MD Cardiology:IN NSR TE LE WAS STABLE H er updated medication list for this problem includes: Digoxin 0.125 Mg Tabs (Digoxin) ..... One tab. daily Aspirin 325 Mg Oral Tabs (Aspirin) ..... Once daily Metoprolol Tartrate 25 Mg Oral Tabs (Metoprolol tartrate) ..... One tab twice daily Alyson Graham MD Cardiology: H er updated medication list for this problem includes: Lisinopril 10 Mg Tabs (Lisinopril) ..... One tab. daily Aspirin 325 Mg Oral Tabs (Aspirin) ..... Once daily Metoprolol Tartrate 25 Mg Oral Tabs (Metoprolol tartrate) ..... One tab twice daily Alyson Graham MD Cardiology:USES CPAP Alyson quintero MD Cardiology:CPAP Alyson Graham MD Cardiology:ARLINE RELAT ED ON CPAP AND DOING WELL ON ASA /BB Alyson Graham MD Cardiology Alyson Graham MD hospital follow up:W ON LISINOPRIL 10MG DAILY AND WILL RESTART AND GIVE HCTZ 12.5MG once daily WITH THAT H er updated medication list for this problem includes: Aspirin 325 Mg Oral Tabs (Aspirin) ..... Once daily Metoprolol Tartrate 25 Mg Oral Tabs (Metoprolol tartrate) ..... One tab twice daily Alyson Graham MD Date Name EKG Sleep Study Titratio n Complete Echo RPM (remote patient monitoring) Sleep Study Home Carotid Duplex Bilat eral Complete Echo Sleep Study Titratio n Mobile Cardiac Tele BASIC METABOLIC PANE L W/EGFR Holter Monitor 24 Hr BNP Strip Complete Echo TSH, 3RD GENERATION BASIC METABOLIC PANE L W/EGFR Venous Doppler Bilat eral LE - Standing HISTORY OF PROCEDURES Procedure Date Procedure Name Provider Procedure Notes S tatus Complex e/m visit add on Alyson Graham MD completed EKG Alyson Graham MD completed EKG Alyson Graham MD completed EKG Alyson Graham MD completed EKG Alyson Graham MD completed EKG Alyson Graham MD completed EKG Alyson Graham MD completed EKG Alyson Graham MD completed Mobile Cardiac Telem etry - Tech Alyson Graham MD completed Mobile Cardiac Telem etry - Prof Alyson Graham MD completed EKG Alyson Graham MD completed SNOMED-CT: [id number] Current Medications Documented Alyson Graham MD completed EKG Alyson Graham MD completed SNOMED-CT: [id number] Current Medications Documented Alyson Graham MD completed EKG Alyson Graham MD completed SNOMED-CT: [id number] Current Medications Documented Alyson Graham MD completed Holter, 24 or 48 Alyson moy MD completed EKG Alyson Graham MD completed SNOMED-CT: [id number] Current Medications Documented Alyson Graham MD completed EKG Alyson Graham MD completed SNOMED-CT: [id number] Current Medications Documented Alyson Graham MD completed EKG Alyson Graham MD completed SNOMED-CT: [id number] Current Medications Documented Alyson Graham MD completed EKG Alyson Graham MD completed SNOMED-CT: [id number] Current Medications Documented Alyson Graham MD completed EKG Alyson Graham MD completed EKG Alyson Graham MD completed EKG Jude Christensen MD completed
--- OUTSIDE RECORDS SUMMARY | 2024-08-02 13:41 | XMS_ITS | Clinical Summary ---
Author Organization [facility] [place] Address [address] [place] [address] Phone Care Team Providers Care Pedigree Tracer Name Role Phone Ruthann Rosa MD Primary Care Provider Allergies Active Allergy Reactions Criticality Noted Date Comments Amoxicillin-Pot Clavulanate Nausea and Vomiting Low 01/10/2010 Sulfa (Sulfonamide Antibiotics) Itching Low 09/27 Medications acetaminophen (TYLENOL) 500 mg tablet Take 2 Tablets by mouth every 6 hours as needed for Pain. Active metoprolol tartrate (LOPRESSOR) 50 mg tablet Take 50 mg by mouth 2 times daily. Active digoxin (LANOXIN) 125 mcg (0.125 mg) tablet Take 125 mcg by mouth daily at bedtime. Active calcitRIOL (ROCALTROL) 0.25 mcg capsule Take 0.25 mcg by mouth 2 times daily. Active sertraline (ZOLOFT) 25 mg tablet Take 25 mg by mouth daily at bedtime. Active bumetanide (BUMEX) 1 mg tablet Take 1 mg by mouth daily. Active fenofibrate nanocrystallized (TRICOR) 145 mg tablet Take 145 mg by mouth daily. Active multivit,iron,minera ls/lutein (CENTRUM SILVER ULTRA WOMEN'S ORAL) Take 1 Tablet by mouth daily. Active L. acidophilus/L. rhamnosus (PROBIOTIC ORAL) Take 1 Caplet by mouth daily. Active coffee xt/phosphatidyl serine (NEURIVA ORIGINAL ORAL) Take 1 Capsule by mouth daily. Active HYDROcodone-acetamin ophen (HYCET) 7.5-325 mg/15 mL SolutionIndications: Morbid obesity with body mass index of 40.0-49.9 ([facility]) Take 15 mL by mouth every 6 hours as needed for Pain. Max Daily Amount: 60 mL 280 mL 08/19/2021 2:14 PM CDT 2 Active famotidine (PEPCID) 20 mg tablet Take 1 Tablet (20 mg) by mouth 2 times daily. 60 Tablet 2 08/19/2021 2:14 PM CDT 2 Active ondansetron (Zofran) 4 mg Tablet Take 1 Tablet (4 mg) by mouth every 8 hours as needed for Nausea or Nausea/Emes is. 50 Tablet 08/19/2021 2:14 PM CDT 2 Active aspirin (ECOTRIN EC) 81 mg Tablet, Delayed Release (E.C.) Take 1 Tablet (81 mg) by mouth daily. 30 Tablet 2 Active lisinopriL (PRINIVIL) 10 mg tablet Take 2 Tablets (20 mg) by mouth 2 times daily. 30 Tablet 1 2 Active Active Problems Patient Care Coordination No te Formatting of this note migh t be different from the original. Primary Care: Herb Mirza MD Referring Provider: Herb Mirza [address] [place] [address] Other: Problem Noted Date Diagnosed Date Morbid obesity with body mass index of 40.0-49.9 08/18/2021 ARLINE (obstructive sleep apnea) 08/18/2021 Inflammatory disease of breast 01/24/2010 Breast swelling 01/10/2010 HTN (hypertension) Atrial fibrillation Overview (08/18/2021): X1 occurrence, medication correction Fatty liver GERD (gastroesophageal reflux disease) Obstructive sleep apnea Family History Medical History Relation Name Comments Breast Cancer Paternal Grandmother dx @ a ge 77 Relation Name Status Comments Paternal Grandmother Social History Tobacco Use Types Packs/Day Years Used Date Smoking Tobacco: Former Cigarettes Q uit: 08/27/2009 Smokeless Tobacco: Never Alcohol Use Standard Drinks/Week Comments Yes 0 (1 standard drink = 0.6 oz pur e alcohol) rarely Comments No Sex and Gender Information Value Date Recorded Sex Assigned at Not on file Legal Sex Female 2:57 AM MANAGER APPLICATION Gender Identity Not on file Sexual Orientation Not on file Last Filed Vital Signs Vital Sign Reading Time Taken Comments Blood Pressure 157/69 08/19/2021 7:43 AM CDT Pulse 74 08/19/2021 7:43 AM CDT Temperature 36.9 C (98.5 F) 08/19/2021 7:43 AM CDT Respiratory Rate 20 08/19/2021 7:43 AM CDT Oxygen Saturation 96% 08/19/2021 7:43 AM CDT Inhaled Oxygen Concentration - - Weight 111.5 kg (245 lb 12.8 oz) 08/18/2021 8:00 AM CDT Height 154.9 cm (5' 1 ) 08/18/2021 8:00 AM CDT Body Mass Index 46.44 08/18/2021 8:00 AM CDT Plan of Treatment Health Maintenance Due Date Last Done Comments COLORECTAL SCREENING 2003 Colorectal Cancer Screening 2003 FIT-DNA Q 3 years 2003 FIT/FOBT Q 1 year 2003 Flex Sig/CT Colonography Q 5 years 2003 PNEUMOCOCCAL VACCINE 50+ YEA RS (1 of 1 - PCV) 2008 BREAST CANCER SCREENING 11/04/2010 11/04/2009 RSV VACCINE (60+ or ) (1 - Risk 60-74 years 1-dose series) 2018 ZOSTER VACCINE (2 of 2) 02/19/2019 12/25/2018, 12/22 OSTEOPOROSIS SCREENING 2023 INFLUENZA VACCINE (#1) 2023 , 12/22/2018, 03/01/2018, Additional history exists Pre-Diabetes and Diabetes Screening 08/19/2024 08/19/2021 DTAP/TDAP/TD VACCINES (2 - T d or Tdap) 03/01/2028 03/01/2018 Medical Devices Implanted Type Area Environmental Field Services Technician Device Identifier Shelf Expiration Date Model / Serial / Lot Seamguard Endogia 60 Prpl [id number] - [id number] Implanted:Qt y: 1 on 08/18/2021 by Chago Chirinos MD at [facility] N/A: Abdomen [employer] [id number] 04/23/2024 [id number] [id number] / / [id number] Seamguard Endogia 60 Prpl [id number] - [id number] Implanted:Qt y: 1 on 08/18/2021 by Chago Chirinos MD at [facility] N/A: Abdomen [employer] [id number] 04/23/2024 12BSGTRI 60P / / [id number] Seamguard Endogia 60 Blk [id number] - [id number] Implanted:Qt y: 1 on 08/18/2021 by Chago Chirinos MD at [facility] N/A: Abdomen [employer] [id number] 03/22/2024 12BSGTRI 60B / / [id number] Seamguard Endogia 60 Blk [id number] - [id number] Implanted:Qt y: 1 on 08/18/2021 by Chago Chirinos MD at [facility] N/A: Abdomen [employer] [id number] 03/22/2024 [id number] 60B / / [id number] Procedures Procedure Name Priority Date/Time Associated Diagnosis Comments HEMOGLOBIN A1C Routine 08/19/2021 5:10 AM CDT MAMMO SCREEN BILAT W OR WO CAD Routine 11/04/2009 from Last 3 Months or Most Recently Relevant to Health Maintenance Results * (ABNORMAL) HEMOGLOBIN A1C (08/19/2021 5:10 AM CDT) HEMOGLOBIN A1C 6.6(H) <=5.6 % 08/19/2021 6:[address] [facility] EST. AVG GLUCOSE, A1C 143 mg/dL 08/19/2021 6:[address] [facility] Blood Venipuncture / Unknown 08/19/2021 5:10 AM CDT 08/19/2021 5:[address] [facility] - 08/19/2021 6:15 AM CDT HGB A1C INTERPRETATION NORMAL: <5.7% PRE-DIABETES: 5.7 - 6.4% DIABETES: 6.5% OR GREATER Mamie Villaseñor MD CHEMISTRY ORDERABLES Final Result [facility] CLIA# [id number] [address] [place] [address] * MAMMO DIGITAL SCREEN BILAT (11/04/2009) Anatomical Region Laterality Modality Breast Bilateral Other Herb Mirza MD MAMMO ORDERABLES Final Result from Last 3 Months or Most Recently Relevant to Health Maintenance Insurance [employer] [address] [employer] [facility] Express Advance Directives For more information, please contact: [phone] * Full Code (Latest Code Status on File) Date Activated Date Inactivated Comments 08/18/2021 12:34 PM 08/19/2021 5:08 PM * Full Code Date Activated Date Inactivated Comments 08/18/2021 7:52 AM 08/18/2021 12:34 PM * Full Code Date Activated Date Inactivated Comments 01/15/2010 10:58 AM 01/15/2010 6:15 PM * Full Code Date Activated Date Inactivated Comments 01/15/2010 10:30 AM 01/15/2010 10:58 AM Care Teams Pedigree Tracer Relationship Specialty Start Date End Date Ruthann Rosa MD PCP - General Internal Medicine 06/03/21
--- OUTSIDE RECORDS SUMMARY | 2024-08-02 13:41 | XMS_ITS | Continuity of Care Document ---
Author Name [facility] Organization [facility] Care Team Providers Care Trouble Operator Name Role Phone [facility] Unavailable Unavailable Medications Combined list of outpatient medications from [facility] of Defense and Veterans Affairs facilities.Medications provided include 1) outpatient medications from the last 15 months, and 2) patient-reported medications. Medication Details Route Status Patient Instructions Prescription Expires Prescription Number Last Dispense Date Ordering Provider Order Date Order Qty Source bumetanide 1 mg tablet 1 mg, Oral, # 90 EA, 2 total refill(s ), Hard Stop Oral (given by mouth) Complet ed 06/14/2024 4 2024 90.0 Ambulat ory Pharmac y dexamethaso ne-tobramyc in 0.1- 0.3% eye drop (susp) [5mL] = 1 drop(s), Eye-Left , QID, # 5 mL, 0 total refill(s ), Hard Stop Left eye Complet ed 12/04/2023 4 2023 5.0 Ambulat ory Pharmac y lisinopril 10 mg tablet See Instruct ions, # 180 EA, 2 total refill(s ), Hard Stop Complet ed 06/14/2024 4 2024 180.0 Ambulat ory Pharmac y meloxicam 15 mg tablet See Instruct ions, Oral, # 30 EA, 2 total refill(s ), Hard Stop Oral (given by mouth) Ordered 02/13/2025 5 2024 30.0 Ambulat ory Pharmac y metoprolol tartrate 25 mg tablet See Instruct ions, # 180 EA, 2 total refill(s ), Hard Stop Complet ed 06/14/2024 4 2024 180.0 Ambulat ory Pharmac y sertraline 25 mg tablet See Instruct ions, Oral, # 90 EA, 2 total refill(s ), Hard Stop Oral (given by mouth) Complet ed 06/14/2024 4 2024 90.0 Ambulat ory Pharmac y Allergies, Adverse Reactions, Alerts Combined list of allergies from [facility] and [facility] facilities. It does not include entries that were removed or entered in error. 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 Location Location Details Encounter Type Encounter Number Reason For Visit Attending Provider ADM Date DC Date Status Disposition Source [facility] [place] Visit [id number] 07/19 Discharge Disposition: Home or Self Care [facility] [place] [facility] Visit [id number] 07/19 Discharge Disposition: Home or Self Care [facility] [place] [facility] Visit [id number] 07/19 Discharge Disposition: Home or Self Care [facility] Procedures Combined list of: 1) Procedures from [facility] facilities going back up to thelast 18 months, not all [place] non-surgical procedures are included; 2) All procedures from the [facility] facilities. Procedure Procedure Type Code Date Perfomer Comments Sourc e No data available for this section Ambulatory P harmacy Social History Combined list of available smoking, tobacco, and other social history from [facility] and [facility] facilities. Social History Type Response Date Comment Sourc e Sexual Orientation Ambula tory Pharmacy Gender identity Ambulator y Pharmacy Sex Representation Female (finding) Unknown Organization Assessment and Plan Combined list of future care activities from [facility] and [facility] facilities (e.g., assessment and plan notes, appointments, orders, and referrals). Additional future care activities may be listed in the Plan of Care section. Result Assessment and Plan Date Source Assessment and Plan No data available for this section 08/02/2024 Ambulatory Pharmacy Functional Status Combined list of recent functional and cognitive assessments recorded at [facility] of Defense and [facility] ([facility] Functional [place] Measurement (FIM) Scale: 1 = Total Assistance (Subject = 0% +), 2 = Maximal Assistance (Subject = 25% +), 3 = Moderate Assistance (Subject = 50% +), 4 = Minimal Assistance (Subject = 75% +), 5 = Supervision, 6 = Modified [place] (Device), 7 = Complete [place] (Timely, Safely). Assessment Date/Time Source Assessment Type Assessment Skill Assessment Score Assessment Details No data available for this section
--- OUTSIDE RECORDS SUMMARY | 2024-08-02 13:41 | XMS_ITS ---
Author Organization [facility] [address] [place] [id number] Care Team Providers Care C S S Representative Name Role Phone Nila Rosa MD Primary Care Provide r Krysta Sullivan MD Unavailable Active Problems Problem Noted Date Diagnosed Date Psoriasis 07/16/2020 Overview (07/16/2020): Posterior left ear. Managed with clobetasol solution. Arthralgia of left ankle 06/17/2020 Bunion 06/17/2020 Foot pain 06/17/2020 Primary osteoarthritis of knees, bilateral 02/25 Tendonitis, Achilles, left 02/26/2020 s/p C5-6 and C6-7 ACDF on 09/07/[address] Issa moy 09/07/2019 Abnormal glucose level 08/23/2019 Cervical spondylotic myeloradiculopathy 08/23/19 Fatty liver disease, nonalcoholic 02/28/2019 Morbid obesity with body mas s index (BMI) of 40.0 to 44.9 in adult 02/28/2019 Overview (02/28/2019): She has lost 40 lbs in the last 8 months with diet & exercise. Elevated liver enzymes 11/15/2018 Overview (08/21/2020): 01/17/19 Fibroscan CAP 316, E 7.5 kPa Chest discomfort 05/14/2017 Closed chip fracture of triquetral bone of right wrist 02/17/2017 Basal cell carcinoma (BCC) of face 02/10/2017 Basal cell carcinoma (BCC) of eyelid 02/10/2017 Generalized edema 10/21/2015 Edema 12/13/2014 Sleep apnea 11/15/2014 Cardiovascular symptoms 08/16/2014 Current Treatment and Therapy Plans No current plan information found. Past Treatment and Therapy Plans No past plan information found. Lifetime Dose Tracking * Chemical Lifetime Dose Automatic Entry Manual Entr y Fluoro Time 0.35 minutes 0.35 minutes 0 minutes Air kerma at the reference point (Ka,r) 3.56 mGy 3 .56 mGy 0 mGy
--- OUTSIDE RECORDS SUMMARY | 2024-08-02 13:41 | XMS_ITS | Referral Summary ---
Author Organization [facility] [address] [place] [id number] Care Team Providers Care Trauma Coordinator Name Role Phone Nila Rosa MD Primary Care Provide r Krysta Sullivan MD Unavailable Allergies Active Allergy Reactions Criticality Noted Date Comments Amoxicillin-Pot Clavulanate Nausea And Vomiting 01/10/2010 Hydrochlorothiazide Itching Low 02/28/2019 Sulfa (Sulfonamide Antibiotics) Itching Low 11/2016 Sulfasalazine Hives Medium 06/04/2016 Medications lisinopril (PRINIVIL,ZESTRIL) 10 mg tablet Take 10 mg by mouth 2 (two) times a day 01/05/20 17 Active metoprolol (LOPRESSOR) 50 mg tablet Take 50 mg by mouth 2 (two) times a day 11/20/19 17 Active calcitRIOL (ROCALTROL) 0.25 mcg capsule Take 0.25 mcg by mouth 2 (two) times a day 01/05/20 17 Active bumetanide (BUMEX) 1 mg tablet Take 1 mg by mouth daily 12/24/19 17 Active digoxin (LANOXIN) 125 mcg (0.125 mg) tablet Take 0.125 mg by mouth nightly Active sertraline (ZOLOFT) 25 mg tablet Take 25 mg by mouth nightly 02/28/20 19 Active aspirin 81 mg enteric coated tablet Take 81 mg by mouth daily Active multivit-min/iron/fo lic/lutein (CENTRUM SILVER WOMEN ORAL) Take 1 tablet by mouth daily Active calcium carbonate-vitamin D3 500-100 mg-unit tablet,chewable Take 1 tablet/chew tab by mouth daily Active fluticasone propionate (FLONASE) 50 mcg/actuation nasal spray USE 1 SPRAY(S) IN EACH NOSTRIL ONCE DAILY NEEDED 05/21/19 21 Active loratadine (CLARITIN) 10 mg tablet Take 10 mg by mouth daily as needed 05/21/19 21 Active clobetasoL (TEMOVATE) 0.05 % external solutionIndications: Dermatosis of the Scalp Apply 1 application topically as needed Active Lactobacillus acidophilus (PROBIOTIC ORAL) Take 1 capsule by mouth daily Active fenofibrate nanocrystallized (TRICOR) 145 mg tablet Take 145 mg by mouth daily Active HYDROcodone-acetamin ophen (NORCO) 5-325 mg per tabletIndications:Pa in Take 1 tablet by mouth every 6 (six) hours as needed for pain 20 tablet 07/26/19 21 Active metroNIDAZOLE (METROCREAM) 0.75 % creamIndications:Acn e Rosacea Apply to face BID 90 g 1 07/30/19 22 Active ivermectin 0.5 % lotionIndications:Ac ne Rosacea Apply 45 g topically daily Apply a pea size amount to face once daily. 45 g 11 01/20/20 22 Active Active Problems Problem Noted Date Diagnosed Date Psoriasis 07/16/2020 Overview (07/16/2020): Posterior left ear. Managed with clobetasol solution. Arthralgia of left ankle 06/17/2020 Bunion 06/17/2020 Foot pain 06/17/2020 Primary osteoarthritis of knees, bilateral 02/25 Tendonitis, Achilles, left 02/26/2020 s/p C5-6 and C6-7 ACDF on 09/07/[address] Issa moy 09/07/2019 Abnormal glucose level 08/23/2019 Cervical spondylotic myeloradiculopathy 08/23/19 20 Fatty liver disease, nonalcoholic 02/28/2019 Morbid obesity [...] 12/13/2014 Sleep apnea 11/15/2014 Cardiovascular symptoms 08/16/2014 Social History Tobacco Use Types Packs/Day Years Used Date Smoking Tobacco: Former Cigarettes 0.8 17 1 998 - 2014 Smokeless Tobacco: Never Alcohol Use Standard Drinks/Week Comments Yes 0 (1 standard drink = 0.6 oz pur e alcohol) 2-3x/year AUDIT-C Answer Date Recorded Q1: How often do you have a drink containing alc ohol? Never 07/25/2020 Average Number of Drinks Not on file 021 Frequency of Binge Drinking Not on file 06/28 PHQ-2 Answer Date Recorded PHQ-2 Total Score (If total score is 3 or more points, staff should administer the PHQ-9) 0 08/09/2020 Hunger Vital Sign Answer Date Recorded Within the past 12 months, y ou worried that your food would run out before you got the money to buy more. Never true 09/08/19 20 Within the past 12 months, t he food you bought just didn't last and you didn't have money to get more. Never true 09/08/2019 PRAPARE - Transportation Answer Date Re corded In the past 12 months, has l ack of transportation kept you from medical appointments or from getting medications? Yes 08/27 In the past 12 months, has l ack of transportation kept you from meetings, work, or from getting things needed for daily living? 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 Not on fi le Not on file Last Filed Vital Signs Vital Sign Reading Time Taken Comments Blood Pressure 174/91 01/13/2021 3:04 PM CDT Pulse 65 01/13/2021 3:04 PM CDT Temperature 36.8 C (98.3 F) 07/25/2020 4:30 PM CDT Respiratory Rate 10 07/25/2020 5:00 PM CDT Oxygen Saturation 94% 07/25/2020 5:00 PM CDT Inhaled Oxygen Concentration - - Weight 118.3 kg (260 lb 11.2 oz) 01/13/2021 3:04 PM CDT Height 152.4 cm (5') 01/13/2021 3:04 PM CDT Body Mass Index 50.91 01/13/2021 3:04 PM CDT Plan of Treatment Not on file Medical Devices Implanted Type Area Junior Paralegal Device Identifier Shelf Expiration Date Model / Serial / Lot [id number] [facility] [id number] Od4 Mm L14 Mm Self Tap Spine Screw Bone [employer] - [id number] Implanted:Qty: 6 on 09/07/2019 by Jono Riddle MD at [facility] [employer] [id number] / / [employer] [id number] Plate 42mm Bone [place] Spine Cervical 2 Level Translational Nonsterile Latex Free - [id number] Implanted:Qty: 1 on 09/07/2019 by Jono Riddle MD at [facility] [employer] [id number] / / [employer] [id number] [employer] [place] 7 D L13mm X W16mm X H9mm Sterile Latex Free Cervical Interbody System - [id number] Implanted:Qty: 1 on 09/07/2019 by Jono Riddle MD at [facility] [employer] [id number] 09/04/2023 [id number] / / [id number] [employer] [id number] Cage Spinal [place] 7 D L13mm X W16mm X H9mm Sterile Latex Free Cervical Interbody System - [id number] Implanted:Qty: 1 [facility] 09/07/[facility] 09/04/2023 [id number] / / [id number] Insurance Member Subscriber Plan / Payer (Ef fective 2017-Present) Name:OfeliaVandana Relation to Subscriber:Self Name:OfeliaVandana Payer ID:[id number] (NAIC) Group ID:[id number] Type: Address: [place] [id number] Member Subscriber Plan / Payer (Ef fective 2019-Present) Name:Vandana Gilbert Relation to Subscriber:Self Name:OfeliaVandana Payer ID:[id number] (NAIC) Group ID:Not on file Type: Address: [place] [phone] [facility] [address] [place] [address] Advance Directives For more information, please contact: [phone] * Full Code (Latest Code Status on File) Date Activated Date Inactivated Comments 09/07/2019 5:45 PM 09/08/2019 7:52 PM Care Teams Trauma Coordinator Relationship Specialty Start Date End Date Nila Rosa MD [address] [facility] [address] [place] [address] PCP - General Internal Medicine 01/19/17 [place] [id number] [facility] [address] [place] [address] Consulting Physician Obstetrics and Gynecology 02/28/19
--- OUTSIDE RECORDS SUMMARY | 2024-08-02 13:41 | XMS_ITS | Clinical Summary ---
Author Organization [facility] Physician Office Building [address] [place] [phone] Care Team Providers Care Youth Support Worker Name Role Phone Nila Rosa MD Primary [...] 12/13/2014 Sleep apnea 11/15/2014 Cardiovascular symptoms 08/16/2014 Surgical History Surgery Date Site/Laterality Comments TUBAL LIGATION EAR SURGERY repair hole in eardrum CHOLECYSTECTOMY 03/29/1991 - 03/28/1992 BREAST SURGERY 03/29/2011 - 03/28/2012 Left MRSA cyst removal SPINAL FUSION 09/07/2019 C5-6, C6-[address] Riddle at [facility]. SALPINGECTOMY left CATARACT EXTRACTION 12/05/2020 Left Medical History Medical History Date Comments Sleep apnea Hypertension Fatty liver disease, nonalcoholic Atrial fibrillation (HCC) Basal cell carcinoma (BCC) of face Diverticulitis of colon Ovarian cyst Neck pain Fibroid PONV (postoperative nausea and vomiting) Pt states she had PONV only with ear surgery History of gastroesophageal reflux (GERD) Basal cell carcinoma of face GERD (gastroesophageal reflux disease) Family History Medical History Relation Name Comments Emphysema Father Heart disease Father Diabetes Mother Emphysema Mother Relation Name Status Comments Father Mother Social History Tobacco Use Types Packs/Day Years Used Date Smoking Tobacco: Former Cigarettes 0.8 17 1 8 - 2014 Smokeless Tobacco: Never Alcohol Use [...] Not on fi le Not on file Obstetrics History Para Term AB IAB SAB Ectopic Multiple Livin g Live Births 2 2 2 0 0 0 2 2 Date Outcome GA Total Labor Labor/2nd/3rd Weight Sex Type Anes PTL Latosha A1 A5 Name Clin 1977 Term F Vag-S pont None Living Complications:None 1990 Term M Vag-S pont None Living Complications:None Comments Had son with 2nd . Last Filed Vital Signs Vital Sign Reading [...] 01/13/2021 3:04 PM CDT Plan of Treatment Health Maintenance Due Date Last Done Comments Breast Cancer Screening-Mammogram 1958 Colon Cancer Screening-Colonoscopy 1960 Hepatitis C Screening 1960 Osteoporosis Screening-Bone Density Scan 1958 Hepatitis B Screening 1976 Pneumococcal vaccine 65+ (1 of 2 - PCV) 1977 Fall Risk Assessment 07/25/2021 07/25/2020 Depression Screening 08/09/2021 08/09/2020, 02/29/20 19 Well Visit 65+ 2023 Influenza Vaccine (Season Ended) 2024 01/24/2020, 12/22/2018, 12/22/2018, Additional history exists DTaP/Tdap/Td Vaccine (2 - Td or Tdap) 03/01/2028 03/01/2018 Zoster Vaccine Completed 12/25/2018, 11/28, 10/07/2018 Medical Devices Implanted Type Area Copy Operator Device Identifier Shelf Expiration Date Model / Serial / Lot K2m [facility] [id number] Od4 Mm L14 Mm Self Tap Spine Screw Bone Magenta - [id number] Implanted:Qty: 6 on 09/07/2019 by Jono Riddle MD at [facility] [employer] [id number] / / [employer] [id number] Plate 42mm Bone [place] Sp[employer] Cervical 2 Level Translational Nonsterile Latex Free - [id number] Implanted:Qty: 1 on 09/07/2019 by Jono Riddle MD at [facility] [employer] [id number] / / [employer] [id number] Cage Spinal [place] 7 D L13mm X W16mm X H9mm Sterile Latex Free Cervical Interbody System - [id number] Implanted:Qty: 1 on 09/07/2019 by Jono Riddle MD at [facility] [employer] [id number] 09/04/2023 [id number] / / [id number] [employer] [id number] Cage Spinal [place] 7 D L13mm X W16mm X H9mm Sterile Latex Free Cervical Interbody System - [id number] Implanted:Qty: 1 on 09/07/2019 by Jono Riddle MD at [facility] [employer] 09/04/2023 [id number] / / [id number] Insurance Member Subscriber Plan / Payer ( fective 2017-Present) Name:Vandana Gilbert Relation to Subscriber:Self Name:Vandana Gilbert Payer ID:[id number] (NAIC) Group ID:[id number] Type: Address: [place] [id number] Member Subscriber Plan / Payer ( fective 2019-Present) Name:Vandana Gilbert Relation to Subscriber:Self Name:Vandana Gilbert Payer ID:[id number] (NAIC) Group ID:Not on file Type: Address: [place] [id number] Advance Directives For more information, please contact: [phone] * Full Code (Latest Code Status on File) Date Activated Date Inactivated Comments 09/07/2019 5:45 PM 09/08/2019 7:52 PM Care Teams Youth Support Worker Relationship Specialty Start Date End Date Nila Rosa MD [address] [place] [address] PCP - General Internal Medicine 01/19/17 [place] [id number] [address] Consulting Physician Obstetrics and Gynecology 02/28/19
--- OUTSIDE RECORDS SUMMARY | 2024-08-02 13:41 | XMS_ITS | Encounter Summary ---
Author Organization [facility] Address [address] [place] [address] Care Team Providers Care Account Support Associate Name Role Phone Ruthann Rosa MD Primary Care Provider Reason for Visit * Reason Onset Date Comments Medical management 08/18/2021 Gave message to INSTRUCTOR EXTENSION WORK Amaya /jess pickard Encounter Details Date Type Department Care Team (Late st Contact Info) Description 08/18/2021 Telephone [facility] Admitting [address] [place] [address] [place] [address] [place] [address] [place] [address] Medical management (Gave message to INSTRUCTOR EXTENSION WORK Amaya pickard) Social History Tobacco Use Types Packs/Day Years Used Date Smoking Tobacco: Former Cigarettes Q uit: 08/27/2009 Smokeless Tobacco: Never Alcohol Use Standard Drinks/Week Comments Yes 0 (1 standard drink = 0.6 oz pur e alcohol) rarely Comments No Sex and Gender Information Value Date Recorded Sex Assigned at Not on file 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 No / Unsure 08/05/2021 8:52 AM CDT documented as of this encounter Plan of Treatment Not on file documented as of this encounter Visit Diagnoses Not on filedocumented in this encounter Care Teams Account Support Associate Relationship Specialty Start Date End Date Ruthann Rosa MD PCP - General Internal Medicine 06/03/21 documented as of this encounter
--- OUTSIDE RECORDS SUMMARY | 2024-08-02 13:41 | XMS_ITS | Clinical Summary ---
Author Organization [facility] [employer] Address [address] [place] [address] Care Team Providers Care Funeral Home Associate Name Role Phone Ruthann Rosa MD Primary Care Provider Source Comments [facility] [employer],non-owned Affiliates and Associated Physician Practices is amultiple site organization consisting of ambulatory clinics and hospital sitesin [place], [place], [place] and [place]. This disclosure is being madepursuant to the Care Everywhere program and may not contain all information available regarding this patient. Last updated 17.[facility] [employer] Allergies Active Allergy Reactions Criticality Noted Date Comments Amoxicillin-Pot Clavulanate Nausea and/o r Vomiting Low 01/10/2010 Amoxicillin-Pot Clavulanate 06/05/19 17 States can not take d/t GI side effect Eluxadoline Unknown 06/29/2023 Caused pancreatitis Hydrochlorothiazide Itching,Unknown Low 02/28/2019 Sulfa Drugs 06/04/2016 Sulfacetamide Itching Low 10/21/2015 Sulfasalazine Urticaria Medium 06/04/2016 Medications * Be aware that medications may not be up to date on this document. Alwaysverify current medications with the patient. METOPROLOL SUCCINATE ER PO Take 25 mg by mouth 2 times daily Active BUMETANIDE PO Take 1 mg by mouth as needed (leg swelling) Active lisinopril (PRINIVIL; ZESTRIL) 10 MG tablet Take 1 (one) tablet by mouth 2 times daily Active sertraline (ZOLOFT) 25 MG tablet Take 1 (one) tablet by mouth once daily Active Multiple Vitamins-Mineral s (CENTRUM SILVER PO) Take by mouth once daily Active Calcium Carbonate-Vitami n D (CALTRATE 600+D PO) Take 1 tablet by mouth once daily OTC Active Probiotic Product (PROBIOTIC DAILY PO) Take by mouth once daily Active cyanocobalamin (Vitamin B-12) injection Inject 1,000 (one thousand) mcg into muscle Every 3 Weeks Active Active Problems Problem Noted Date Diagnosed Date Pain in joint of left shoulder 05/03/2024 Encounter for screening for cardiovascular disor ders 01/07/2024 Closed fracture of lateral malleolus 06/24/2023 06/29/2023 Sprain of lateral ligament of ankle joint 202306/29/2023 Neck pain 06/10/2023 06/29/2023 Elevation of levels of liver transaminase levels 06/10/2023 Vaginitis 06/10/2023 Visual disturbance 06/10/2023 Diverticulitis 02/21/2023 06/29/2023 Hypokalemia 07/16/2022 06/29/2023 Appendicitis 06/29/2022 Low serum vitamin B12 06/29/2022 06/29/2023 Abdominal pain 06/25/2022 Anxiety 06/25/2022 Chronic kidney disease 06/25/2022 Hyperglycemia 06/25/2022 Obesity 06/25/2022 Lesion of skin of face 06/25/2022 Vitamin D deficiency 06/25/2022 GERD (gastroesophageal reflux disease) 2 Psoriasis 07/16/2020 Overview (01/09/2022): Posterior left ear. Managed with clobetasol solution. Arthralgia of left ankle 06/17/2020 Primary osteoarthritis of knees, bilateral 02/25 Tendonitis, Achilles, left 02/26/2020 Fusion of spine of cervical region 09/07/2019 Abnormal glucose level 08/23/2019 Atrial fibrillation 11/15/2018 Essential hypertension 11/15/2018 NAFLD (nonalcoholic fatty liver disease) 019 Overview (07/05/2024): 01/17/19 Fibroscan CAP 316, LSM 7.5 kPa 04/18/21 Fibroscan CAP 378, LSM 8.5 kPa 07/17/21 Fibroscan CAP 319, LSM 3.8 kPa 06/29/2023 Fibroscan CAP 237 LSM kPa 4.6 07/04/2024 Fibroscan CAP 187 LSM kPa 4.4 Sleep apnea 11/15/2014 Resolved Problems Problem Noted Date Diagnosed Date Resolved Date Acute urinary tract infection 03/25/2022 07/31/2022 Upper respiratory infection 03/25/2022 06/29/2023 07/13/2023 Encounters Date Type Department Care Team Description 07/04/2024 1:30 PM CDT Office Visit [facility] - [address] [place] [address] Mamie Chacon, PHOTOVOLTAIC TECHNICIAN-CULINARY WORKER NAFLD (nonalcoholic fatty liver disease) (Primary Dx) 07/04/2024 1:00 PM CDT Procedure visit [facility] - [facility] [place] [address] Wilbur Tierney MD NAFLD (nonalcoholic fatty liver disease) 07/04/2024 Travel from Last 3 Months Family History Medical History Relation Name Comments COPD - Chronic Obstructive Pulmonary Disease Father Thyroid Disease Mother Lupus Other daughter Relation Name Status Comments Father Mother Other daughter Alive Social History Tobacco Use Types Packs/Day Years Used Date Smoking Tobacco: Former Cigarettes Q uit: 03/29/2013 Smokeless Tobacco: Never Tobacco Cessation:Counseling Given: Not Answered Alcohol Use Standard Drinks/Week Comments Yes 0 (1 standard drink = 0.6 oz pur e alcohol) very rarely AUDIT-C Answer Date Recorded Frequency of Alcohol Consumption Never 11/15/2018 Average Number of Drinks Not on file 019 Frequency of Binge Drinking Not on file 10/28 Comments No Sex and Gender Information Value Date Recorded Sex Assigned at Not on file 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 Gender Identity Not on file Sexual Orientation Not on file Last Filed Vital Signs Vital Sign Reading Time Taken Comments Blood Pressure 129/75 07/04/2024 12:52 PM CDT Pulse 71 07/04/2024 12:52 PM CDT Temperature 36.5 C (97.7 F) 07/04/2024 12:43 PM CDT Respiratory Rate 18 07/17/2022 8:59 AM CDT Oxygen Saturation 98% 07/04/2024 12:43 PM CDT Inhaled Oxygen Concentration - - Weight 92.8 kg (204 lb 9.6 oz) 07/04/2024 12:43 PM CDT Height 154.9 cm (5' 1 ) 07/04/2024 12:43 PM CDT Body Mass Index 38.66 07/04/2024 12:43 PM CDT Plan of Treatment Upcoming Encounters Date Type Department Care Team (Late st Contact Info) Description 07/03/2025 11:30 AM CDT Procedure visit [facility] - [place] [address] [place] [phone] 07/03/2025 12:00 PM CDT Office Visit [facility] - GI [address] [place] [phone] Mamie Chacon M, PHOTOVOLTAIC TECHNICIAN-CULINARY WORKER [address] [place] [address] [place] [phone] Health Maintenance Due Date Last Done Comments BONE DENSITY TESTING 1960 COLOGUARD (AGES 45-75) - COLON CA SCREENING 1958 COLON MONITORING 1958 COLONOSCOPY - COLON CA SCREENING 1958 CT COLONOGRAPHY - COLON CA SCREENING 1960 Colorectal Cancer Screening 1958 FIT - COLON CA SCREENING 1958 FLEX SIG - COLON CA SCREENING 1960 MAMMOGRAM 1960 MEDICARE AWV 12 MONTHS 1958 DTAP/TDAP/TD VACCINES (1 - Tdap) 1977 PNEUMOCOCCAL VACCINE 50+ (1 of 1 - PCV) 2008 ZOSTER VACCINE (1 of 2) 2008 COVID-19 VACCINE ( - season) 2023 03/28/2021, 06/18/2020, 05/28/2020 DEPRESSION SCREENING 03/29/2024 SCREENING FOR DIABETES 07/04/2024 01/14/2021 LIPID TESTING 07/15/2027 07/14/2022, 03/30, 01/11/2019 Respiratory Syncytial Virus (RSV) Vaccine Pt: or over 60 yrs (1 - 1-dose 75+ series) 2033 HEPATITIS C SCREENING Completed 08/19/2021 INFLUENZA VACCINE Completed 02/08/2024, , 03/10/2022, Additional history exists HEPATITIS B VACCINE Aged Out No longe r eligible based on patient's age to complete this topic HIB VACCINE Aged Out No longer eligi ble based on patient's age to complete this topic HPV VACCINE Aged Out No longer eligi ble based on patient's age to complete this topic MENINGOCOCCAL (Group B) VACCINE SHARED DECISION-MAKING Aged Out No longer eligible based on patient's age to complete this topic MENINGOCOCCAL GROUPS A/C/Y/W VACCINE Aged Out No longer eligible based on patient's age to complete this topic Goals Goal Patient Goal Type Associated Problems Recent Progress Patient-Stated? Author Medication Management General On track( 025 1:03 PM CDT) Luna Galvez, RN Note: Expected end date: ongoing Interventions: Take all medications as prescribed Procedures Procedure Name Priority Date/Time Associated Diagnosis Comments RI LIVER ELASTOGRAPHY Routine 07/04/2024 12:52 PM CDT NAFLD (nonalcoholic fatty liver disease) LIPID PROFILE (EXTERAL RESULT ENTRY) Routine 07/14/2022 8:31 AM CDT COMPREHENSIVE METABOLIC PANEL Routine 01/14/2021 5:04 PM CDT Elevated liver enzymes from Last 3 Months or Most Recently Relevant to Health Maintenance Results * RI LIVER ELASTOGRAPHY (07/04/2024 12:52 PM CDT) Narrative Wilbur Child MD - 07/04/2024 12:52 PM CDT Wilbur Child MD 07/05/2024 9:01 PM Diagnosis: NAFLD RN verified patient NPO for prior 3 hours. Procedure explained. Date of Exam: 07/04/2024 Liver Stiffness: (LSM, kPa) median: 4.4 IQR/Median% (ideally < 30%): 17% CAP (controlled attenuation parameter): 187 Technical Difficulty: None Ordering Provider: GRAYSON Cerda Phone Fax Fibroscan interpretation: I have personally reviewed the Fibroscan report and associated tracings. The calculated Liver Stiffness Measurement (LSM, kPa) indicates that: The probability of advanced liver fibrosis is: low. The loss of ultrasound signal, (controlled attenuation parameter, CAP [dB/m]), indicates that the probability of hepatic steatosis is: low. Wilbur Mariee MD The following criteria are used to indicate the probability of advanced (stage 3-4) fibrosis: < 7.0 kPa: low 7.0-8.9 kPa: low to moderate 9.0-14.9 kPa: moderate 15-20 kPa: high > 20 kPa: very high Liver stiffness > 12 kPa is associated with an increased risk of cirrhosis-related complications over the next 3-5 years (Bopablitoier, 2022). Liver stiffness > 20 kPa is also associated with a high probability of complications of portal hypertension including varices and ascites. Liver stiffness > 50 kPa is associated with a high risk of variceal bleeding. These interpretations are based on the following published data: Blanca J, Hagstr m H, Ekstedt M, Madison C, Bonacci M, Cure S, Ampuero J, Nasr P, Tallab L, Canivet CM, Kechagias S, S nchez Y, Dincuff E, Judy A, Jesus M, Rionatividad J, Andre A and Telles-Cortez M. Non-invasive tests accurately stratify patients with NAFLD based on their risk of liver-related events. J Hepatol (2021) 76: 7522-5987. Rivka JOSÉ, Monica M, Zonia M, et al. Accuracy of FibroScan controlled attenuation parameter and liver stiffness measurement in assessing steatosis and fibrosis in patients with nonalcoholic fatty liver disease. Gastroenterology 2019;156:5081-0325. Vinh MS, Rupinder R, Van James ML, et al. Vibration-controlled transient elastography to assess fibrosis and steatosis in patients with nonalcoholic fatty liver disease. Clin Gastroenterol Hepatol 2019;17:156-163. Note that scores have been developed that incorporate the Fibroscan liver stiffness measurement from large cohorts of patients with liver biopsies to further refine the ability of Fibroscan to identify patients with MASH and advanced fibrosis. These include the FAST (Fibroscan-AST) score (Joni, 2021) and the Agile3+ and Agile4 scores (Reji, 2022; Venice, 202). Joni TA, Daniele REDMAN, Estefania M, Joe A, et al. Validation of the accuracy of the FAST score for detecting patients with at-risk nonalcoholic steatohepatitis (MALIK) in a [place] cohort and comparison to other non-invasive algorithms. PLoS ONE (2021) 17: i3091990. Reji TROTTER, Hakeem J, Kyra ZM, et al. Enhanced diagnosis of advanced fibrosis and cirrhosis in individuals with NAFLD using FibroScan-based Agile scores. J Hepatol (2022) 78: 247-259. Venice et al. Vibration-controlled transient elastography scores to predict liver-related events in steatotic liver disease. SUNNY (2023) 331: 5263-3456 Fibroscan LSM can also be used with laboratory parameters without formulas to assess prognosis. According to the Baveno-VII criteria (Rivera, 2022), Fibroscan LSM <=15 kPa plus a platelet count of >=304p602/L rules out clinically significant portal hypertension (sensitivity and negative predictive value >90%) in patients with compensated advanced chronic liver disease. Rivera R, Natalia J, Matt-Josse G, Marbin T, Diana C on behalf of the Baveno VII Faculty. Baveno VII--Renewing consensus in portal hypertension. J Hepatol (2021) 76: 959-974 Assessing the likelihood of advanced fibrosis in patients with intermediate liver stiffness measurement (LSM) by Fibroscan (e.g., 8-15 kPa) can be improved by also calculating the FIB-4 score (Abdi et al. Hepatology Communications 2019;3:6317-3868) or NAFLD Fibrosis score (Vasquez et al. Clinical Gastroenterology and Hepatology 2019;17:1550-8261 using routine clinical data. Notes: 1. Fibroscan cannot reliably identify earlier stages of fibrosis (ie distinguish F0 from F1 and F2) and thus a histologic stage cannot be predicted from the Fibroscan reading. 2. Liver stiffness can be increased by factors other than fibrosis including passive congestion, infiltrative processes, active alcoholism, recent moderate alcohol consumption in the 2 weeks before the exam, biliary obstruction and marked inflammation. The interpretation of the Fibroscan result provided above may not have taken such clinical factors into account. 3. Identifying steatosis by an elevated CAP score (> 250 db/m) is useful for establishing a diagnosis of steatotic liver disease. However the severity of steatosis does not correlate with liver related outcomes. Disease etiology also influences Fibroscan cutoff values for fibrosis stages and the following cutoffs have been proposed (Nancy et al, Clin Gastro Hepatol 2015; 13:27-36): Cutoffs for Stage 3 and Stage 4 fibrosis respectively: Hepatitis B: >9 and >11.7 kPa Hepatitis C: >9.5 and >12.5 kPa HCV-HIV: >11 and >14 kPa Cholestatic liver diseases: >10 and >17.9 kPa MASLD/MASH: >10 and >14 kPa CAP estimates of steatosis: normal <200 dB/m mild 200 to 250 dB/m moderate 250-290 dB/m substantial > 290 dB/m (Note that Fibroscan is not a quantitative measure of liver fat.) These criteria are estimates and may change as additional supporting data becomes available. (This additional interpretive data was last updated 03/31/24.) [email or web address] Mamie Chacon PHOTOVOLTAIC TECHNICIAN-CULINARY WORKER PROCEDURE/MINOR SURG ICAL ORDERABLES Final Result * LIPID PROFILE (EXTERAL RESULT ENTRY) (07/14/2022 8:31 AM CDT) Cholesterol (EXTERNAL RESULT) 150 mg/dL OTHER LAB Triglycerides (EXTERNAL RESULT) 145 mg/dL OTHER LAB HDL (EXTERNAL RESULT) 43 mg/dL OTHER LAB LDL (EXTERNAL RESULT) 78 mg/dL OTHER LAB VLDL (EXTERNAL RESULT) OTHER LAB Chol HDL Ratio (External Result) OTHER LAB Blood BLOOD SPECIMEN / Unknown 07/14/2022 8:31 AM CDT us Historical Provider LAB - CHEMISTRY ORDERABLE S Edited Result - Final OTHER LAB * (ABNORMAL) COMPREHENSIVE METABOLIC PANEL (01/14/2021 5:04 PM T) BUN 14 7 - 26 mg/dL 01/14/2021 5:40 PM [facility] Creatinine 0.81 0.56 - 0.96 mg/dL 01/14/2021 5:40 PM [facility] Sodium 142 136 - 145 mmol/L 01/14/2021 5:40 PM [facility] Potassium 3.7 3.5 - 4.5 mmol/L 01/14/2021 5:40 PM [facility] Chloride 105 98 - 107 mmol/L 01/14/2021 5:40 PM [facility] CO2 26 22 - 29 mmol/L 01/14/2021 5:40 PM [facility] Glucose 92 70 - 115 mg/dL 01/14/2021 5:40 PM [facility] Calcium 10.1 8.4 - 10.2 mg/dL 01/14/2021 5:40 PM [facility] Protein Total 7.6 6.0 - 8.3 g/dL 01/14/2021 5:40 PM [facility] Albumin 4.2 3.4 - 5.0 g/dL 01/14/2021 5:40 PM [facility] Bilirubin Total 0.4 0.2 - 1.2 mg/dL 01/14/2021 5:40 PM [facility] Alkaline Phosphatase 85 40 - 150 U/L 01/14/2021 5:40 PM [facility] ALT 28 5 - 55 U/L 01/14/2021 5:40 PM [facility] AST 40(H) 5 - 34 U/L 01/14/2021 5:40 PM [facility] Anion Gap 15 8 - 18 01/14/2021 5:40 PM [facility] BUN/Creatinine Ratio 17 7 - 23 01/14/2021 5:40 PM [facility] Osmolality Calculated 294 270 - 300 mOsm/kg 01/14/2021 5:40 PM CDT [facility] Albumin/Globulin Ratio 1.2 1.1 - 2.3 01/14/2021 5:40 PM CDT [facility] eGFR by CKD-EPI 78(L) >=90 mL/min/1.7 3 m2 01/14/2021 5:40 PM CDT [facility] Blood BLOOD SPECIMEN / Unknown Lab Venipuncture / Unknown 01/14/2021 5:04 PM CDT 01/14/2021 5:09 PM CDT us Mamie Chacon PHOTOVOLTAIC TECHNICIAN-CULINARY WORKER LAB - CHEMISTRY ORDE MATTHEW Final Result [facility] [address] [place] [address], [facility] [phone] from Last 3 Months or Most Recently Relevant to [place] [address] [email or web address] MEDICARE Care Teams Funeral Home Associate Relationship Specialty Start Date End Date Ruthann Rosa MD [address] [address] PCP - General Internal Medicine 09/19/18
--- OUTSIDE RECORDS SUMMARY | 2024-08-02 13:42 | XMS_ITS | Data Portability ---
Author Organization [place] - [facility], Main Office Address [address] [place] [address] Care Team Providers Care Curriculum Counselor Name Role Phone SAMAN ROSA Primary Care Provider SAMAN ROSA Referring Provider ELMIRA PIERRE Mechanical Estimator ISAI TAYLOR Channel Sales Director JONA GRAHAM Product Technician ZACKERY CHEN Motion Picture Equipment Machinist Assessment Encounter Date Assessment Date Assessment LastModified by Organization Details LastModified Time 09/09/2023 09/09/2023 This note is dictated and transcribed by [employer]. Bank Compliance Officer variances may occur. Despite proofreading, typographical errors may occur. Occasional wrong-word or '[id number]-[id number]' substitutions may have occurred due to the inherent limitations of voice recording. Read the chart carefully and recognize, using context, where substitutions have occurred. [email or web address] Not available 09/09/2023 11:06:22 11/02/2023 11/02/2023 09/22/2022: TG 168 AST 40H 06/11/2023: A1C 5.0 Urine micro alb 20.6H AST 46 TG 158 10/18/2023: AST 41H A1C 5.1 [email or web address] Not available 10/20/2023 09:44:41 02/14/2024 02/14/2024 63-year-old female presents for evaluation of her left shoulder. She reports several months of pain, that is getting progressively worse. She denies having any acute injury but feels like she was reaching across her back scratching herself when this started. Pain is located over the anterior and lateral aspects of the shoulder, and especially bad reaching behind her back such as when she is getting dressed. She has not had any treatments for this. She denies previous injuries. She is left-hand dominant. She is retired. Denies other medical issues. Review of systems per patient questionnaire Physical exam: She has tenderness palpation of the AC joint, biceps groove, and lateral shoulder. Range of motion 140/20/ back pocket. 5/5 rotator cuff strength. Equivocal Alok. Positive Neer and Bruno. Positive speed and Yergason's. Positive [place]'s. X-rays reviewed, demonstrating no acute bony abnormality, preserved joint space For her shoulder pain, we will begin with a course conservative management with anti-inflammator ies and physical therapy. We also discussed a cortisone injection, which she wanted to proceed with. She does have pain at night which disrupts her sleep. She tolerated the injection well. We will see her back in 6-8 weeks as needed after course of treatment. At that time, she is having persistent symptoms, we will obtain MRI. She is in agreement with the plan. [email or web address] Not available 02/14/2024 11:04:03 05/04/2024 05/04/2024 05/03/2024: TG 152 Alb 4.8H, TP WNL 09/22/2022: TG 168 AST 40H 06/11/2023: A1C 5.0 Urine micro alb 20.6H AST 46 TG 158 10/18/2023: AST 41H A1C 5.1 05/03/2024: TG 152 AST 42 [email or web address] Not available 05/04/2024 16:59:17 Plan of Treatment Reminders Order Date Submit Date Provider Last Modified By Organization Details Last Modified Time Details Appointments Any 15 2024 10:00A M Saman burr MD Not available Not available Not available Lab lipid panel, serum 2024 025 [facility] (Lab), [address] [place], [address], 05/05/2024 14:10:33 CMP, serum or plasma 2024 025 [facility] (Lab), [address] [place], [address], 05/05/2024 14:10:33 CBC w/ auto diff 2024 025 [facility] (Lab), [address] [place], [address], 05/05/2024 14:10:33 TSH, serum or plasma 2024 025 [facility] (Lab), [address] [place], [address], 05/05/2024 14:10:34 glycohemo globin, total, blood 2024 025 [facility] (Lab), [address] [place], [address], 05/05/2024 14:10:33 microalbu min, urine 2024 025 [facility] (Lab), [address] [place], [address], 05/05/2024 14:10:34 vitamin D, 25-hydrox y, total, serum 2024 025 [facility] (Lab), [address] [place], [address], 05/05/2024 14:10:33 lipid panel, serum [address] (Lab), [address] [place], [address], 05/04/2024 12:20:13 CMP, serum or plasma [address] (Lab), [address] [place], [address], 05/04/2024 12:20:13 CBC w/ auto diff [address] (Lab), [address] [place], [address], 05/04/2024 12:20:13 TSH, serum or plasma [address] (Lab), [address] [place], [address], 05/04/2024 12:20:13 glycohemo globin, total, blood [address] (Lab), [address] [place], [address], 05/04/2024 12:20:14 microalbu min, urine [address] (Lab), [address] [place], [address], 05/04/2024 12:20:14 vitamin D, 25-hydrox y, total, serum [address] (Lab), [address] [place], [address], 05/04/2024 12:20:14 Referral cardiolog ist referral - Please call patient to schedule an appointme nt. Thank you. 2024 025 [email or web address] Jona Graham MD, [address] [facility], [facility] [address], [place], [address], 07/13/2024 09:05:54 podiatris t referral - Please call patient to schedule an appointme nt. Thank you. 2024 025 [email or web address] Isai Taylor DPM, [address], [address], [place], [address], 06/14/2024 09:32:52 physical therapist referral - Please contact pt to schedule apt. Thanks 2023 024 [facility] [place], [address] [facility], [place], [address], 03/02/2024 11:32:16 orthopedi c surgeon referral - Please call patient to schedule. X-ray results pending 2023 024 LESLEY Chavez MD, [address] [facility], [place], [address], 02/14/2024 11:10:29 cardiolog ist referral 2023 024 [email or web address] Jona Graham MD, [address] [facility], [address], [place], [address], 05/04/2024 12:20:27 gastroent erologist referral 2023 024 [email or web address] Mamie Chacon SHIPPING AND RECEIVING ASSOCIATE, [address], [place], [address], 05/04/2024 12:20:28 podiatris t referral 2023 024 [email or web address] Isai Taylor DPM, [address] [facility], [address], [place], [address], 05/04/2024 12:20:25 Procedures injection /aspirati on joint/bur sa (PROC) 2023 024 [email or web address] 1 In-Office Order, Internal Use Only DO Not Attach Compendium DO Not Attach Compendium, Do Not Delete/merge, [id number] 02/14/2024 11:01:45 colonosco py screening (PROC) 2023 024 [email or web address] Ad Guevara MD, [address], [address], [place], [address], 06/01/2024 10:53:07 Surgeries None recorded. Imaging MAMMO, screening , digital, bilateral - Please call patient to schedule. 2024 025 [facility] ([facility] Call Scheduling), [address] [place], [address], 07/27/2024 18:40:06 XR, shoulder, 2 or more view 2023 024 [email or web address] [facility] [place], [facility] [place], [address], 02/14/2024 13:09:16 MAMMO, screening , digital, bilateral [address] (One Call Scheduling), [address] [place], [address], 05/08/2024 16:19:32 DEXA, axial skeleton [address] (One Call Scheduling), [address] [place], [address], 05/08/2024 16:19:22 XR, ankle, 3 or more view 2023 024 [email or web address] [facility] [place], [facility], [place], [address], 09/09/2023 11:07:43 Medication Orders bupivacai ne HCl 0.5 % (5 mg/mL) injection solution [address] [facility], [address] [place] [address], [address], 04/21/2024 16:49:57 Kenalog 10 mg/mL suspensio n for injection [address] [facility], [address] [place], [address], 04/21/2024 16:49:59 meloxicam 15 mg tablet 2023 024 [email or web address] [facility], [address] [place] [address], [address], 05/04/2024 16:16:50 Patient TargetsNo targets recorded. Patient InstructionsNo instructions recorded. Reason for Referral Channel Sales Director Referral for Paro nychia of toe of left foot Referring Physician: Saman Rosa, Internal Medicine, Encounter Date: 11/02/2023 Product Technician Referral for At rial fibrillation Referring Physician: Saman Rosa Internal Medicine, Encounter Date: 11/02/2023 Copy Holder Referral for Liver enzymes level above reference range Referring Physician: Saman Rosa, Internal Medicine, Encounter Date: 11/02/2023 Orthopedic Surgeon Referral for Pain of left shoulder joint Please call patient to schedule.X-ray results pending Referring Physician: Saman Rosa Internal Medicine, Encounter Date: 02/08/2024 Physical Therapist Referral for Pain of left shoulder joint L shoulder Please contact pt to schedule apt. Thanks Referring Physician: Maged Chavez, Orthopedic Surgery, Encounter Date: 02/14/2024 Channel Sales Director Referral for Paro nychia of toe of left foot Please call patient to schedule an appointment. Thank you. Referring Physician: Saman Rsoa Internal Medicine, Encounter Date: 05/04/2024 Product Technician Referral for At rial fibrillation Please call patient to schedule an appointment. Thank you. Referring Physician: Saman Rosa Internal Medicine, Encounter Date: 05/04/2024 Results Created Date Observation Date Name Description Value Unit Range Abnormal Flag Note LastModifiedBy Organization Detail LastModifiedTime 10/18/19 24 10/18/2023 CBC/C OMPLE TE BLD COUNT W/DIF F white blood cells 5.6 x10'3 /uL 4.2-10 .8 Not Available [facility] (Lab) [address] [place], [address], 10/18/2023 11:43:42 10/18/19 24 10/18/2023 CBC/C OMPLE TE BLD COUNT W/DIF F red blood cells 4.34 x10'6 /uL 3.80-5 .20 Not Available [facility] (Lab) [address] [place], [address], 10/18/2023 11:43:42 10/18/19 24 10/18/2023 CBC/C OMPLE TE BLD COUNT W/DIF F hemoglobin 13.4 g/dL 12.0-1 5.6 Not Available [facility] (Lab) [address] [place], [address], 10/18/2023 11:43:42 10/18/19 24 10/18/2023 CBC/C OMPLE TE BLD COUNT W/DIF F hematocrit 38.6 % 35.7-4 5.7 Not Available [facility] (Lab) [address] [place], [address], 10/18/2023 11:43:42 10/18/19 24 10/18/2023 CBC/C OMPLE TE BLD COUNT W/DIF F mean red cell volume 88.9 fL 82.0-9 9.0 Not Available [facility] (Lab) [address] [place], [address], 10/18/2023 11:43:42 10/18/19 24 10/18/2023 CBC/C OMPLE TE BLD COUNT W/DIF F mean red cell hemoglobin 30.9 pg 27.0-3 3.0 Not Available [facility] (Lab) [address] [place], [address], 10/18/2023 11:43:42 10/18/19 24 10/18/2023 CBC/C OMPLE TE BLD COUNT W/DIF F mean RBC HGB concentratio n 34.7 g/dL 31.0-3 6.0 Not Available [facility] (Lab) [address] [place], [address], 10/18/2023 11:43:42 10/18/19 24 10/18/2023 CBC/C OMPLE TE BLD COUNT W/DIF F red cell distribution width 12.7 % 11.8-1 5.5 Not Available [facility] (Lab) [address] [place], [address], 10/18/2023 11:43:42 10/18/19 24 10/18/2023 CBC/C OMPLE TE BLD COUNT W/DIF F platelets 275 x10'3 /uL 150-40 0 Not Available [facility] (Lab) [address] [place], [address], 10/18/2023 11:43:42 10/18/19 24 10/18/2023 CBC/C OMPLE TE BLD COUNT W/DIF F mean platelet volume 10.7 fL 9.0-12 .4 Not Available [facility] (Lab) [address] [place], [address], 10/18/2023 11:43:42 10/18/19 24 10/18/2023 CBC/C OMPLE TE BLD COUNT W/DIF F neutrophils 53.0 % 39.0-7 2.0 Not Available [facility] (Lab) [address] [place], [address], 10/18/2023 11:43:42 10/18/19 24 10/18/2023 CBC/C OMPLE TE BLD COUNT W/DIF F lymphocytes 32.6 % 16.0-4 7.0 Not Available [facility] (Lab) [address] [place], [address], 10/18/2023 11:43:42 10/18/19 24 10/18/2023 CBC/C OMPLE TE BLD COUNT W/DIF F monocytes 7.8 % 5.0-12 .0 Not Available [facility] (Lab) [address] [place], [address], 10/18/2023 11:43:42 10/18/19 24 10/18/2023 CBC/C OMPLE TE BLD COUNT W/DIF F eosinophils 5.3 % 1.0-7. 0 Not Available [facility] (Lab) [address] [place], [address], 10/18/2023 11:43:42 10/18/19 24 10/18/2023 CBC/C OMPLE TE BLD COUNT W/DIF F basophils 1.1 % 0.0-2. 0 Not Available [facility] (Lab) [address] [place], [address], 10/18/2023 11:43:42 10/18/19 24 10/18/2023 CBC/C OMPLE TE BLD COUNT W/DIF F immature granulocytes 0.2 % 0.00-0 .50 Not Available [facility] (Lab) [address] [place], [address], 10/18/2023 11:43:42 10/18/19 24 10/18/2023 CBC/C OMPLE TE BLD COUNT W/DIF F neutrophils, absolute count 2.97 x10'3 /uL 1.5-8. 0 Not Available [facility] (Lab) [address] [place], [address], 10/18/2023 11:43:42 10/18/19 24 10/18/2023 CBC/C OMPLE TE BLD COUNT W/DIF F lymphocytes, absolute count 1.83 x10'3 /uL 1.07-3 .43 Not Available [facility] (Lab) [address] [place], [address], 10/18/2023 11:43:42 10/18/19 24 10/18/2023 CBC/C OMPLE TE BLD COUNT W/DIF F monocytes, absolute count 0.44 x10'3 /uL 0.29-0 .99 Not Available [facility] (Lab) [address] [place], [address], 10/18/2023 11:43:42 10/18/19 24 10/18/2023 CBC/C OMPLE TE BLD COUNT W/DIF F eosinophils, absolute count 0.30 x10'3 /uL 0.02-0 .53 Not Available [facility] (Lab) [address] [place], [address], 10/18/2023 11:43:42 10/18/19 24 10/18/2023 CBC/C OMPLE TE BLD COUNT W/DIF F basophils, absolute count 0.06 x10'3 /uL 0.01-0 .08 Not Available [facility] (Lab) [address] [place], [address], 10/18/2023 11:43:42 10/18/19 24 10/18/2023 CBC/C OMPLE TE BLD COUNT W/DIF F immature granulocytes ,absolute 0.01 x10'3 /uL 0.00-0 .05 Not Available [facility] (Lab) [address] [place], [address], 10/18/2023 11:43:42 10/18/19 24 10/18/2023 CBC/C OMPLE TE BLD COUNT W/DIF F nucleated red blood cells 0.0 % -0 Not Available [facility] (Lab) [address] [place], [address], 10/18/2023 11:43:42 10/18/19 24 10/18/2023 CBC/C OMPLE TE BLD COUNT W/DIF F NRBC# 0.00 x10'3 /uL Not Available [facility] (Lab) [address] [place], [address], 10/18/2023 11:43:42 10/18/19 24 10/18/2023 MICRO ALBUM IN RANDO M URINE microalbumin , urine 14.8 mg/L 0.0-16 .6 Not Available [facility] (Lab) [address] [place], [address], 10/18/2023 12:14:59 10/18/19 24 10/18/2023 LIPID PANEL cholesterol 170 mg/dL 140-19 9 [facility] NSUS RECOM MENDA TION FOR TIESHA STERO L: ADULT CHILD LOW RISK: <200 <170 BORDE RLINE : <200- 239 ----- HIGH RISK: >240 >200 Not Available [facility] (Lab) [address] [place], [address], 10/18/2023 12:49:04 10/18/19 24 10/18/2023 LIPID PANEL triglyceride s 113 mg/dL 0-150 [facility] FAUSTO NSUS REPOR T RECOM MENDA TION FOR TRIGL YCERI SHELBI: ADULT CHILD LOW RISK: <150 ----- BODER LINE: 150-1 99 ----- HIGH RISK: >200 ----- Not Available [facility] (Lab) [address] [place], [address], 10/18/2023 12:49:04 10/18/19 24 10/18/2023 LIPID PANEL HDL cholesterol 61 mg/dL 40- Not Available [facility] (Lab) [address] [place], [address], 10/18/2023 12:49:04 10/18/19 24 10/18/2023 LIPID PANEL LDL cholesterol, calculated 86 mg/dL 0-130 [facility] FAUSTO NSUS REPOR T RECOM MENDA TIONS FOR LDL: ADULT CHILD LOW RISK <130 <110 (OPTI MAL LDL) <100 ----- BORDE RLINE : 130-1 59 ----- HIGH RISK: >160 >130 A TRIGL YCERI DE RESUL T >400 INVAL IDATE S THE CALCU LATIO N FOR LDL FRACT IONAT ION - THE LDL RESUL T WILL NOT BE REPOR ELENA. Not Available [facility] (Lab) [address] [place], [address], 10/18/2023 12:49:04 10/18/19 24 10/18/2023 COMPR EHENS GREG METAB OLIC PANEL sodium 141 mmol/ L 137-14 5 Not Available [facility] (Lab) [address] [place], [address], 10/18/2023 12:49:08 10/18/19 24 10/18/2023 COMPR EHENS GREG METAB OLIC PANEL potassium 3.5 mmol/ L 3.5-5. 1 Not Available [facility] (Lab) [address] [place], [address], 10/18/2023 12:49:08 10/18/19 24 10/18/2023 COMPR EHENS GREG METAB OLIC PANEL chloride 109 mmol/ L 98-107 high Not Available [facility] (Lab) [address] [place], [address], 10/18/2023 12:49:08 10/18/19 24 10/18/2023 COMPR EHENS GREG METAB OLIC PANEL carbon dioxide 26 mmol/ L 22-30 Not Available [facility] (Lab) [address] [place], [address], 10/18/2023 12:49:08 10/18/19 24 10/18/2023 COMPR EHENS GREG METAB OLIC PANEL anion gap 9.5 mmol/ L 14-22 low Not Available [facility] (Lab) [address] [place], [address], 10/18/2023 12:49:08 10/18/19 24 10/18/2023 COMPR EHENS GREG METAB OLIC PANEL glucose 83 mg/dL 70-99 Not Available [facility] (Lab) [address] [place], [address], 10/18/2023 12:49:08 10/18/19 24 10/18/2023 COMPR EHENS GREG METAB OLIC PANEL BUN 13 mg/dL 8-19 Not Available [facility] (Lab) [address] [place], [address], 10/18/2023 12:49:08 10/18/19 24 10/18/2023 COMPR EHENS GREG METAB OLIC PANEL creatinine 0.66 mg/dL 0.66-1 .25 Not Available [facility] (Lab) [address] [place], [address], 10/18/2023 12:49:08 10/18/19 24 10/18/2023 COMPR EHENS GREG METAB OLIC PANEL GFR >60 Refer ence Range : [place] ge GFR Healt hy Adult : >60 mL/mi n/1.7 3 m2 Chron ic Kidne y Disea se: 15-60 mL/mi n/1.7 3 m2 Kidne y Failu re: <15/m L/min /1.73 m2 www.n iddk. nih.g ov The MDRD study equat ion has not been valid ated in child evan <18 years of age; pregn ant women ; the elder ly >85 years of age; or in some racia l or ethni c subgr oups, such as [facility] nics. Outsi de the valid ated belen eters , estim ated GFR is less accur ate, requi ring clini lynn judgm ent on a case- by-ca se basis . Clini lynn inter preta tion for other races and ages must be made by the clini hank. The MDRD study equat ion has not been valid ated for the evalu ation of serum creat inine relat ed to nutri moshe l statu s or medic ation usage . For perso ns <18 years of age, a pedia tric GFR calcu lator is avail able on the F websi te: https ://rita jason.o rg/pr ofess ional s/kdo qi/gf r_cal culat or Not Available [facility] (Lab) [address] [place], [address], 10/18/2023 12:49:08 10/18/19 24 10/18/2023 COMPR EHENS GREG METAB OLIC PANEL alkaline phosphatase 97 U/L 38-126 Not Available [facility] (Lab) [address] [place], [address], 10/18/2023 12:49:08 10/18/19 24 10/18/2023 COMPR EHENS GREG METAB OLIC PANEL alanine aminotransfe rase 15 U/L 0-35 Not Available [facility] (Lab) [address] [place], [address], 10/18/2023 12:49:08 10/18/19 24 10/18/2023 COMPR EHENS GREG METAB OLIC PANEL aspartate aminotransfe rase 41 U/L 15-37 high Not Available [facility] (Lab) [address] [place], [address], 10/18/2023 12:49:08 10/18/19 24 10/18/2023 COMPR EHENS GREG METAB OLIC PANEL bilirubin, total 0.60 mg/dL 0.20-1 .30 Not Available [facility] (Lab) [address] [place], [address], 10/18/2023 12:49:08 10/18/19 24 10/18/2023 COMPR EHENS GREG METAB OLIC PANEL calcium 9.4 mg/dL 8.4-10 .2 Not Available [facility] (Lab) [address] [place], [address], 10/18/2023 12:49:08 10/18/19 24 10/18/2023 COMPR EHENS GREG METAB OLIC PANEL total protein 7.4 g/dL 6.3-8. 2 Not Available [facility] (Lab) [address] [place], [address], 10/18/2023 12:49:08 10/18/19 24 10/18/2023 COMPR EHENS GREG METAB OLIC PANEL albumin 4.7 g/dL 3.0-4. 4 high Not Available [facility] (Lab) [address] [place], [address], 10/18/2023 12:49:08 10/18/19 24 10/18/2023 COMPR EHENS GREG METAB OLIC PANEL globulin 2.7 g/dL 2.6-4. 2 Not Available [facility] (Lab) [address] [place], [address], 10/18/2023 12:49:08 10/18/19 24 10/18/2023 COMPR EHENS GREG METAB OLIC PANEL A/G ratio 1.7 ratio 1.0-2. 0 Not Available [facility] (Lab) [address] [place], [address], 10/18/2023 12:49:08 10/18/19 24 10/18/2023 TSH W/REF CHERIE FT4 TSH with reflex free T4 2.020 uIU/m L 0.465- 4.680 Not Available [facility] (Lab) [address] [place], [address], 10/18/2023 13:01:07 10/18/19 24 10/18/2023 VITAM IN D 25-HY DROXY [id number] 45.6 NG/mL 30-100 Vitam in D Statu s: Defic ient: <20 ng/mL Insuf ficie nt: 20-29 ng/mL Suffi cient : 30-10 0 ng/mL Not Available [facility] (Lab) [address] [place], [address], 10/18/2023 13:04:35 10/18/19 24 10/18/2023 HEMOG LOBIN A1C HA1C 5.1 % 4.0-6. 0 Diabe beto Scree brandon Crite harvey: <5.7% Consi stent with absen ce of diabe beto 5.7-6 .4% Consi stent with incre ased risk for diabe beto (pred iabet es) >OR=6 .5% Consi stent with diabe beto REFER ENCE: Diabe beto Care 2016, 39(Pablo ppl.1 ):s13 -s22 Not Available [facility] (Lab) [address] [facility], [place], [address], 10/18/2023 14:02:57 09/09/19 24 XR, ankle , 3 or more view No observ ation record ed. [email or web address] [facility] [place] [address], [place], [address], 09/09/2023 11:07:41 02/14/20 24 XR, shoul vera, 2 or more view No observ ation record ed. [facility] [place] [address] [facility], [place], [address], 02/14/2024 10:44:55 07/10/19 25 07/09/2024 imagi ng/di agnos tic resul t No observ ation record ed. [facility] [address] [place], [address], 07/09/2024 14:34:25 07/11/19 25 07/09/2024 CT, abdom en + pelvi s, w/ contr ast No observ ation record ed. [email or web address] Not Available 2024 11:14:31 07/28/19 25 07/27/2024 scree brandon breas t mike, bilat [facility] [address] [place], [place] [id number] Patien t Name: JENNIE WOLF Access ion #: [id number] Sex: F : 1960 5 Dictat ed By: Angela Soto Attend ing Physic christiano: KARINA ROBLEDOBunnySIMI Moy Orderi ng Physic christiano: ALVIN ROBLEDO Exam Date: 2024 13:36 PM Exam Name: MG SCRN BREAST MIKE BILAT Admitt ing Diagno sis(es ): PROCED URE: SCREEN ING MAMMOG KATH WITH TOMOSY NTHESI S REASON FOR EXAM: Screen ing mammog kath COMPAR DAVIDSON: MG SCRN BREAST MIKE BILAT on DOS: 06/30/23 , MG SCRN BREAST MIKE BILAT 3D on DOS: , MG SCRN BREAST MIKE BILAT 3D on DOS: , SCREEN ING BREAST MIKE, BILAT 3D on DOS: 08/28/19 , SCREEN ING BREAST MIKE, BILAT 3D on DOS: 9 TECHNI QUE: Bilate ral CC and MLO views obtain ed. Images were obtain ed using a Digita l Tomosy nthesi s Unit. Standa rd 2D and 3D Tomosy nthesi s images were review ed. This examin ation was analyz ed using Lunit Insigh t DBT/MM G in additi on to a radiol ogist review , an AI softwa re develo ped to enhanc e the effect ivenes s of breast cancer screen ing with mammog armin. FINDIN GS: BREAST COMPOS ITION: A - The breast s are almost entire ly fatty. In the right breast , no asymme trical parenc hymal patter n, barbara ectura l distor tion, pleomo rphic microc alcifi cation s or masses . In the left breast , no asymme trical parenc hymal patter n, barbara ectura l distor tion, pleomo rphic microc alcifi cation s or masses . IMPRES ZOEY: No findin gs of malign ivette. RECOMM ENDATI ON: Recomm end annual mammog kath. Page 1 [facility] [address] [facility], [place] [address] Patien t Name: JENNIE WOLF Access ion #: [id number] Sex: F : 1960 5 Dictat ed By: Angela Soto Attend ing Physic christiano: SENDY VENCES Orderi Physic christiano: ALVIN ROBLEDO Exam Date: 2024 13:36 PM Exam Name: MG PICHARDO BREAST MIKE BILAT Admitt ing Diagno sis(es ): ASSESS MENT: BIRADS : 1 - Negati ve Electr onical ly Signed by: Angela Soto at 2024 14:25: 07 PM Page 2 [email or web address] [facility] (Imaging) [address] [place], [address], 07/28/2024 14:19:36 07/28/1907/27/2024 MAMMO , scree brandon, digit al, bilat eral No observ ation record ed. [email or web address] [facility] [address] [place], [address], 07/31/2024 14:56:25 Result Notes None recorded. Problems Name Problem SNOMED Code Status Onset Date Resolution Date Notes Provider Name and Address Organization Details Recorded Time Left Achilles tendiniti s 65537422866 9102 Active 2020 Not Available [facility] 3 01:13:59 Onychomyc osis of toenails 145039130 Active 2021 Not Available [facility] 3 01:14:00 Bunion 346383209 Active 2020 Not Available [facility] 3 01:14:00 Atrial fibrillat ion 93059588 Completed Saman moy MD [address] [facility], [facility] [address], [place], [address] , [facility] [employer] [facility] 3 14:41:43 Essential hypertens ion 07148688 Active Not Available [facility] 3 01:14:00 Obstructi ve sleep apnea syndrome 69614471 Active Not Available [facility] 3 01:14:01 COVID-19 329910698 Active 2021 Not Available [facility] 3 01:14:01 Hyperlipi demia 25942948 Active 2022 Saman moy MD [address], [place], [address] , [employer] [facility] [email or web address] [facility] 3 14:41:21 Cyst of ovary 21987646 Active 2022 Saman moy MD [address], [place], [address] , [employer] [facility] [email or web address] [facility] 3 14:41:33 Atrial fibrillat ion 49826284 Active 2022 Saman moy MD [address], [place], [address] , [employer] [facility] [email or web address] [facility] 3 14:41:43 Anxiety 38598281 Active 2022 Saman moy MD [address], [place], [address] , [employer] [facility] [email or web address] [facility] 3 14:41:55 Obesity 126566067 Active 2022 Saman moy MD [address], [place], [address] , [employer] [facility] [email or web address] [facility] 3 14:42:00 Vitamin D deficienc y 38177377 Active 2022 Saman moy MD [address], [place], [address] , [employer] [facility] [employer] [facility] 3 14:42:15 Serum vitamin B12 below reference range 490498001 Active 2022 Saman moy MD [address], [place], [address] , [employer] [facility] [email or web address] [facility] 3 09:56:06 Diverticu litis 367847045 Active 2022 Saman moy MD [address], [place], [address] , [facility] [employer] [facility] 3 09:08:21 Liver enzymes level above reference range 720565043 Active 2023 Saman moy MD [address] [facility], [address] [address], [place], [address] , [facility] 4 09:03:20 Chronic kidney disease 681116842 Active 2023 Saman moy MD [address] [facility] [address], [place], [address] , [facility] [employer] [facility] 4 09:03:20 Closed fracture of lateral malleolus 68945266 Active 2023 Isai Taylor DPM [address] [place] [address], [place], [address] , [facility] [employer] [facility] 4 11:45:39 Pain of left shoulder joint 66872122328 351847 Active 2024 Saman moy MD [address], [place] [address], [place], [address] , [facility] 5 16:38:33 Eruption 170019164 Active 2024 Saman moy MD [address], [place] [address], [place], [address] , [facility] 5 17:03:17 Diarrhea 78504646 Active 2024 ASMITA Lara null, [facility] 5 15:29:46 Notes:Medical History: Anxie ty COVID infections 11/2020, 02/2022, 12/2022 Rhinitis Early REM onset Obesity with mild OSAHS, AHI = 10, 03/18/23, on CPAP c/o Provider Plus Treatment-emergent central apneas Mild MR Hypertension EF 60% Mixed hyperlipidemia Atrial fibrillation 2014 Hepatic steatosis Spleen granulomas Hepatosplenomegaly Sigmoid diverticulosis & diverticulitis Bilateral ovarian cysts PLMD Vit B12 deficiency Vit D deficiency Lumbar DDD Hip and SI joint DDD Right bunion Onychomycosis Procedure History: Cholecystectomy 1992 Right tympanoplasty 2006 C5-C7 fusion 2019 Left salpingectomy 2020 Bilateral cataract extraction with IOL 2020 Gastric sleeve surgery 2021 Appendectomy 2022 Occupational History: Retired staff appraiser Problem Notes None recorded. Procedures Surgical History Date Name Laterality Status Provider Name and Address Organization Details Recorded Time 05/01/19 25 Colonoscopy completed Alma Rangel ASMITA [employer] 05/04/2024 16:17:28 02/14/20 24 Ortho - Cortisone Injection completed Maged Chavez MD [address] [place] [address], [place] [address] [address], [place], [address], [employer] 02/14/2024 11:04:14 06/15/19 24 Medicare Wellness CPT Code, Welcome completed Roberta Zach [employer] 06/14/2023 19:03:16 06/26/19 23 Appendectomy completed Shena Iniguez MA [employer] 07/07/2022 12:31:04 08/19/19 22 biopsy of liver completed Not Available [facility] 03/2022 00:59:49 08/19/19 22 repair of diaphragmatic hernia by abdominal approach completed Not Available [facility] 05/27/2022 00:59:49 08/19/19 22 laparoscopic sleeve gastrectomy completed Not Available [facility] 05/27/2022 00:59:49 07/26/19 21 MANAGER FRAUD Surgery completed Not Available [facility] access hospital 05/28/19 00:59:49 09/07/19 20 Neck Surgeries completed Not Available [facility] hospital 05/27 00:59:49 09/07/19 20 cervical arthrodesis completed Not Available [facility] 05/27/2022 00:59:49 12/28/19 06 procedure on ear completed Not Available [facility] 03/2022 00:59:49 Breast Surgery completed Not Available [facility] 05/27/2022 00:59:49 procedure on skin completed Not Available [facility] 05/27/2022 00:59:49 MANAGER FRAUD Surgery completed Not Available [facility] access hospital 05/27/2022 00:59:49 Gallbladder Surgery completed Not Available [facility] 05/27/2022 00:59:49 Imaging Results Imaging Date Name Status LastModified by Organiz ation Details LastModified Time 09/09/2023 XR, ankle, 3 or more view completed [email or web address] [facility] [place] [address], [place], [address], 09/09/2023 11:07:41 02/14/2024 XR, shoulder, 2 or more view completed [email or web address] [facility] [place] [address], [place], [address], 02/14/2024 10:44:55 07/09/2024 imaging/diagno stic result active [facility] [address] [place], [address], 07/09/2024 14:34:25 07/09/2024 CT, abdomen + pelvis, w/ contrast completed [email or web address] Information not available 07/10/2024 11:14:31 07/27/2024 screening breast mike, bilat completed [email or web address] [facility] (Imaging) [address] [place], [address], 07/28/2024 14:19:36 07/27/2024 MAMMO, screening, digital, bilateral completed [email or web address] [facility] [address] [place], [address], 07/31/2024 14:56:25 Procedure Notes None recorded. Medical Equipment None Reported. Allergies Allergen ID Allergen Name Allergen Category Reaction Reaction Severity Criticality Documentation Date Start Date Code Code System Note Provider Name and Address Organization Details Recorded Time 2535 Substance with sulfonami de structure and antibacte rial mechanism of action (substanc e) medicatio n itching Not available Not available 05/27/2022 99594 8003 SNOMED Not Available [facility] 3 01:30:58 2536 hydrochlo rothiazid e medicatio n Not available Not available Not available 05/27/2022 5487 RxNorm Not Available [facility] 3 01:30:59 73235 Augmentin medicatio n diarrhea severe Not available 11/23/2022 70285 2 RxNorm ASMITA Lara null, [facility] 3 12:47:32 33003 Viberzi medicatio n Not available Not available Not available 05/19/2023 85049 87 RxNorm Magi Brito MA null, [facility] 4 09:59:48 Medications Name Sig Start Date Stop Date Status Note LastModified by Organization Details LastModified Time cyclobenza tunde 10 mg tablet Take 1 tablet as needed by oral route at bedtime for 30 days. active Not Available Not Available No t Available BD Luer-Angeline Syringe 3 mL 25 x 1 1/2 USE 1 EVERY 3 WEEKS 05/18 completed Not Available Not Available Not Available prednisone 10 mg tablet take by mouth 09/23 completed Not Available Not Available Not Available doxycyclin e hyclate 100 mg capsule TAKE 1 CAPSULE BY MOUTH TWICE DAILY FOR 7 DAYS 06/14 completed Not Available Not Available Not Available clindamyci n HCl 300 mg capsule TAKE 1 CAPSULE BY MOUTH EVERY 6 HOURS FOR 10 DAYS 02/23 completed Not Available Not Available Not Available BD Insulin Syringe 1 mL 25 x 1 USE TO INJECT EVERY 3 WEEKS 05/18 completed Not Available Not Available Not Available aspirin 325 mg tablet Take 1 tablet every day by oral route. 01/04 completed Not Available Not Available Not Available ofloxacin 0.3 % eye drops 04/22 completed Not Available Not Available Not Available fluconazol e 150 mg tablet TAKE 1 TABLET BY MOUTH EVERY DAY 05/18 completed Not Available Not Available Not Available benzonatat e 200 mg capsule TAKE 1 CAPSULE BY MOUTH EVERY 8 HOURS NEEDED FOR COUGH 06/14 completed Not Available Not Available Not Available cephalexin 250 mg capsule TAKE 1 CAPSULE BY MOUTH EVERY 6 HOURS FOR 7 DAYS 02/23 completed Not Available Not Available Not Available hydrocodon e 5 mg-acetami nophen 325 mg tablet TAKE 1 TABLET BY MOUTH EVERY 6 HOURS NEEDED FOR PAIN 04/22 completed Not Available Not Available Not Available meloxicam 15 mg tablet TAKE 1 TABLET BY MOUTH ONCE DAILY DO NOT TAKE WITH OTHER NSAIDS 05/04 completed Not Available Not Available Not Available lisinopril 20 mg tablet twice a day 06/29 completed Not Available Not Available Not Available ondansetro n HCl 4 mg tablet 09/02 completed Not Available Not Available Not Available bupivacain e HCl 0.5 % (5 mg/mL) injection solution Take 4 mL by injectio n route. 04/21 completed Not Available Not Available Not Available prednisone 20 mg tablet TAKE 3 TABLETS BY MOUTH DAILY FOR 5 DAYS 09/08 completed Not Available Not Available Not Available clonazepam 0.5 mg tablet bid 06/01 completed Not Available Not Available Not Available Zithromax Z-Sumanth 250 mg tablet Take 2 TABLEts the first day then 1/day active Not Available Not Available No t Available topiramate 25 mg tablet 04/18 completed Not Available Not Available Not Available meclizine 12.5 mg tablet TAKE 1 TABLET BY MOUTH THREE TIMES DAILY NEEDED FOR DIZZINES S active Not Available Not Available No t Available metronidaz ole 500 mg tablet TAKE 1 TABLET BY MOUTH THREE TIMES DAILY FOR 7 DAYS 02/09 completed Not Available Not Available Not Available phentermin e 37.5 mg tablet TAKE 1 TABLET BY MOUTH ONCE DAILY (NO ALCOHOL DRIVING AND WITH NO SEDATING MEDICATI ONS) active Not Available Not Available No t Available ciprofloxa mele 250 mg tablet 01/04 completed Not Available Not Available Not Available ciprofloxa mele 500 mg tablet TAKE 1 TABLET BY MOUTH TWICE DAILY FOR 7 DAYS 02/13 completed Not Available Not Available Not Available Tamiflu 75 mg capsule Take 1 capsule twice a day by oral route for 5 days. 09/08 completed Not Available Not Available Not Available aspirin 81 mg tablet,del ayed release Take 1 tablet every day by oral route. 03/10 completed Not Available Not Available Not Available tramadol 50 mg tablet Take 1 tablet every day by oral route as needed for 30 days. 10/15 completed Not Available Not Available Not Available triamcinol one acetonide 0.1 % topical cream APPLY A THIN LAYER TO THE AFFECTED AREA(S) BY TOPICAL ROUTE 2 TIMES PER DAY active Not Available Not Available No t Available amoxicilli n 500 mg tablet Take 1 tablet 3 times a day by oral route. 09/08 completed Not Available Not Available Not Available ketorolac 0.5 % eye drops 09/02 completed Not Available Not Available Not Available oxycodone- acetaminop hen 5 mg-325 mg tablet TAKE 1 TABLET BY MOUTH EVERY 4 TO 6 HOURS NEEDED 11/23 completed Not Available Not Available Not Available amoxicilli n 875 mg tablet 10/06 completed Not Available Not Available Not Available potassium chloride ER 20 mEq tablet,ext ended release(pa rt/cryst) TAKE 1 TABLET BY MOUTH EVERY DAY 05/19 completed Not Available Not Available Not Available famotidine 20 mg tablet 11/04 completed Not Available Not Available Not Available prednisolo ne acetate 1 % eye drops,susp ension 04/22 completed Not Available Not Available Not Available dicyclomin e 20 mg tablet 09/02 completed Not Available Not Available Not Available Kenalog 10 mg/mL suspension for injection Take 1 mL by injectio n route. 04/21 completed ND: [id number] Not Available Not Available Not Available phenazopyr idine 100 mg tablet 01/24 completed Not Available Not Available Not Available cephalexin 500 mg capsule TAKE 1 CAPSULE BY MOUTH EVERY 6 HOURS X 7 DAYS 03/10 completed Not Available Not Available Not Available cyanocobal wilder (vit B-12) 1,000 mcg/mL injection solution INJECT 1000 MG IN THE MUSCLE EVERY 3 WEEKS active Not Available Not Available No t Available bumetanide 0.5 mg tablet 10/06 completed Not Available Not Available Not Available lisinopril 10 mg tablet Take 1 tablet twice a day by oral route. active Not Available Not Available No t Available vancomycin 250 mg capsule TAKE 1 CAPSULE BY MOUTH FOUR TIMES DAILY FOR 10 DAYS 05/19 completed Not Available Not Available Not Available metronidaz ole 0.75 % topical cream 11/04 completed Not Available Not Available Not Available metoprolol tartrate 50 mg tablet bid 06/29 completed Not Available Not Available Not Available hydrochlor othiazide 12.5 mg capsule Take 1 capsule every day by oral route. 09/08 completed Not Available Not Available Not Available nystatin-t riamcinolo ne 100,000 unit/g-0.1 % topical cream APPLY TOPICALL Y TO THE AFFECTED AREA TWICE DAILY IN THE MORNING AND IN THE EVENING 05/18 completed Not Available Not Available Not Available Edecrin 25 mg tablet Take 2 tablets every day by oral route. 11/18 completed Not Available Not Available Not Available gabapentin 300 mg capsule TAKE 1 CAPSULE BY MOUTH NIGHTLY active Not Available Not Available No t Available sertraline 25 mg tablet TAKE 1 TABLET DAILY (NO ALCOHOL, DRIVING, OR WITH ANY OTHER SEDATING MEDICATI ONS. NOTIFY OFFICE IF ANY CHANGE IN MOOD OR BEHAVIOR .) active Not Available Not Available No t Available bumetanide 1 mg tablet qd 02/09 completed Not Available Not Available Not Available etodolac 400 mg tablet Take 1 tablet twice a day by oral route for 30 days. 07/23 completed Not Available Not Available Not Available montelukas t 10 mg tablet as needed 02/13 completed Not Available Not Available Not Available mupirocin 2 % topical ointment 01/04 completed Not Available Not Available Not Available digoxin 125 mcg (0.125 mg) tablet Take 1 tablet every day by oral route. 03/10 completed Not Available Not Available Not Available metoprolol succinate ER 25 mg tablet,ext ended release 24 hr Take 2 tablets every day by oral route. 11/18 completed Not Available Not Available Not Available ergocalcif edward (vitamin D2) 1,250 mcg (50,000 unit) capsule Take 1 capsule every week by oral route for 60 days. 10/15 completed Not Available Not Available Not Available BD Tuberculin Syringe 1 mL 25 gauge x 5/8 USE EVERY 3 WEEKS TO INJECT VITAMIN BEFORE-1 2 04/21 completed Not Available Not Available Not Available levofloxac in 500 mg tablet 01/24 completed Not Available Not Available Not Available levofloxac in 750 mg tablet TAKE 1 TABLET BY MOUTH DAILY FOR 7 DAYS 02/23 completed Not Available Not Available Not Available methylpred nisolone 4 mg tablets in a dose pack TAKE BY MOUTH DIRECTED ON INSIDE OF PACKAGE active Not Available Not Available No t Available clobetasol 0.05 % scalp solution APPLY TOPICALL Y TO SCALP DAILY active as needed Not Available Not Available Not Available ondansetro n 4 mg disintegra ting tablet DISSOLVE 1 TABLET IN MOUTH EVERY 6 HOURS NEEDED FOR NAUSEA FOR VOMITING 10/15 completed Not Available Not Available Not Available cefdinir 300 mg capsule 02/23 completed Not Available Not Available Not Available fluticason e propionate 50 mcg/actuat ion nasal spray,susp ension SHAKE LIQUID AND USE 1 SPRAY IN EACH NOSTRIL TWICE DAILY DIRECTED 05/19 completed Not Available Not Available Not Available clotrimazo le 1 % topical cream APPLY TO THE AFFECTED AND SURROUND ING AREAS OF SKIN BY TOPICAL ROUTE 2 TIMES PER DAY IN THE MORNING AND EVENING active Not Available Not Available No t Available doxycyclin e hyclate 100 mg tablet TAKE 1 TABLET BY MOUTH TWICE DAILY FOR 10 DAYS 06/29 completed Not Available Not Available Not Available calcitriol 0.25 mcg capsule bid 06/14 completed Not Available Not Available Not Available loratadine 10 mg tablet as needed 02/13 completed Not Available Not Available Not Available naproxen 500 mg tablet TAKE 1 TABLET BY MOUTH TWICE DAILY NEEDED FOR PAIN 04/22 completed Not Available Not Available Not Available amoxicilli n 875 mg-potassi um clavulanat e 125 mg tablet TAKE 1 TABLET BY MOUTH TWICE DAILY FOR 7 DAYS 06/29 completed Not Available Not Available Not Available tobramycin 0.3 %-dexameth asone 0.1 % eye drops,susp ension 04/21 completed Not Available Not Available Not Available oxycodone 5 mg tablet TAKE 1 TABLET BY MOUTH EVERY 4 HOURS NEEDED FOR PAIN active Not Available Not Available No t Available Ciprodex 0.3 %-0.1 % ear drops,susp ension INSTILL 4 DROPS INTO AFFECTED EAR(S) BY OTIC ROUTE 2 TIMES PER DAY FOR 7 DAYS active Not Available Not Available No t Available metoprolol tartrate 25 mg tablet Take 1 tablet twice a day by oral route. active Not Available Not Available No t Available hydrocodon e 7.5 mg-acetami nophen 325 mg/15 mL oral solution 11/04 completed Not Available Not Available Not Available nitrofuran toin monohydrat e/macrocry stals 100 mg capsule 04/22 completed Not Available Not Available Not Available Tricor 48 mg tablet Take 1 tablet every day by oral route. 03/03 /2021 completed Not Available Not Available Not Available fenofibrat e nanocrysta llized 145 mg tablet Take 1 tablet every day by oral route for 90 days. 03/10 completed Not Available Not Available Not Available Suprep Bowel Prep Kit 17.5 gram-3.13 gram-1.6 gram oral solution 01/24 completed Not Available Not Available Not Available ivermectin 0.5 % lotion APPLY A PEA SIZE AMOUNT TO FACE ONCE DAILY 03/10 completed Not Available Not Available Not Available potassium chloride ER 20 mEq tablet,ext ended release TAKE 1 TABLET BY MOUTH EVERY DAY 06/14 completed Not Available Not Available Not Available Nexium 24HR 04/29 completed Not Available Not Available Not Available Centrum Silver Women tk 1t po qd 09/02 completed Not Available Not Available Not Available Caltrate-D 3 Plus Minerals tk 1t po qd 09/02 completed Not Available Not Available Not Available Shingrix (PF) 50 mcg/0.5 mL intramuscu lar suspension , kit 01/24 completed Not Available Not Available Not Available Flublok Quad (PF) 180 mcg (45 mcg x 4)/0.5 mL IM syringe active Not Available Not Available N ot Available Paxlovid 300 mg (150 mg x 2)-100 mg tablets in a dose pack TK 2 NIRMATRE LVIR TS AND 1 RITONAVI R T TOGETHER PO BID FOR 5 DAYS BID FOR 5 DAYS DIRECTED 06/29 completed Not Available Not Available Not Available Vitals Date Recorded Body height Body mass index (BMI) Body weight Heart rate Respiratory rate Oxygen saturation Oxygen saturation in Arterial blood by Pulse oximetry Systolic blood pressure Diastolic blood pressure Provider Name and Address Organization Details Last Updated DateTime 4 154.94 cm 33.6 kg/m2 44366.4 4 g 67 /min 14 /min 98 % 98 % 182 mm[Hg] 101 mm[Hg] Susan Farfan Valentin [place] [employer] [facility] 4 10:39:31 Date Recorded Body height Body mass index (BMI) Body weight Body temperature Heart rate Oxygen saturation Oxygen saturation in Arterial blood by Pulse oximetry Systolic blood pressure Diastolic blood pressure Provider Name and Address Organization Details Last Updated DateTime 4 154.94 cm 36.8 kg/m2 06968.5 1 g 98.5 [degF] 80 /min 97 % 97 % 128 mm[Hg] 74 mm[Hg] Magi Brito MA [facility] [email or web address] [facility] 4 17:22:50 Date Recorded Body height Body mass index (BMI) Body weight Body temperature Heart rate Respiratory rate Oxygen saturation Oxygen saturation in Arterial blood by Pulse oximetry Pain severity - 0-10 verbal numeric rating [Score] - Reported Systolic blood pressure Diastolic blood pressure Provider Name and Address Organization Details Last Updated DateTime 4 154.94 cm 36.8 kg/m2 76895.5 1 g 98.6 [degF] 74 /min 18 /min 97 % 97 % 5 132 mm[Hg] 82 mm[Hg] Dre Lakhani LPN [facility] [employer] [facility] 4 12:01:28 Date Recorded Body height Body mass index (BMI) Body weight Pain severity - 0-10 verbal numeric rating [Score] - Reported Provider Name and Address Organization Details Last Updated DateTime 02/14/2024 154.94 cm 36.8 kg/m2 14056.51 [address] [facility] [employer] [facility] [email or web address] [facility] 02/14/2024 10:42:15 Date Recorded Body height Body mass index (BMI) Body weight Body temperature Heart rate Systolic blood pressure Diastolic blood pressure Provider Name and Address Organization Details Last Updated DateTime 5 154.94 cm 38 kg/m2 67745.0 7 g 97.2 [degF] 78 /min 148 mm[Hg] 82 mm[Hg] Alma Rangel [facility] [email or web address] [facility] 5 16:21:02 Social History Question Answer Notes LastModified by Organization Details LastModified Time Tobacco Smoking Status Former Smoker quit 04/06/2014 [facility] [email or web address] [facility] 07/07/2022 12:04:14 Do You Have An Advance Directive? No [id number] Information not available 05/27/2022 What Is Your Level Of Alcohol Consumption? None [id number] Information not available 05/27/2022 What Is Your Level Of Caffeine Consumption? Occasional [id number] Information not available 05/27/2022 How Much Tobacco Do You Chew? None [id number] Information not available 05/27/2022 In The 14 Days Before Symptom Onset, Have You Had Close Contact With A Laboratory-confi rmed COVID-19 While That Case Was Ill? No Information not available 07/07/2022 In The 14 Days Before Symptom Onset, Have You Had Close Contact With A Person Who Is Under Investigation For COVID-19 While That Person Was Ill? No Information not available 07/07/2022 Are You Currently Employed? No Retired Information not available 11/02/2023 What Type Of Diet Are You Following? REGULAR [id number] [id number] Information not available 05/27/2022 Which Illicit Or Recreational Drugs Have You Used? None Information not available 07/07/2022 Do You Or Have You Ever Used E-cigarettes Or Vape? Never Used Electronic Cigarettes Information not available 07/07/2022 What Is The Highest Grade Or Level Of School You Have Completed Or The Highest Degree You Have Received? [id number] Information not available 07/07/2022 Do You Have An Electrostatic Air Filter? 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 No Information not available 07/07/2022 What Is The Fluoride Status Of Your Home? Unknown Information not available 07/07/2022 When Did You Quit Smoking? 6-10yearssincelast cigarette Information not available 07/07/2022 Are There Any Guns Present In Your Home? Yes Information not available 07/07/2022 Do You Have A Humidifier? Yes Information not available 05/19/2023 Do You Use Insect Repellent Routinely? Yes Information not available 07/07/2022 Where [facility] You Live? [facility] Information not available 07/07/2022 Do You Have A Medical Power Of Heart Specialist? No Information not available 07/07/2022 Do You Have Moisture Problems In Your Home? No Information not available 05/19/2023 What Was The Date Of Your Most Recent Tobacco Screening? 05/04/2024 [email or web address] Information not available 05/04/2024 How Many Children Do You Have? 2 Information not available 11/02/2023 Do You Have Any Pets? Yes Information not available 07/07/2022 What Is Your Relationship Status? MIGRATION.0301 [id number] Information not available 05/27/2022 Do You Use Your Seat Belt Or Car Seat Routinely? Yes Information not available 07/07/2022 Do You Have Smoke And Carbon Monoxide Detectors In Your Home? Yes Information not available 07/07/2022 At What Age Did You Start Smoking Tobacco? 21 Information not available 07/07/2022 Are You Passively Exposed To Smoke? No Information not available 07/07/2022 Do You Or Have You Ever Used Smokeless Tobacco? Never Used Smokeless Tobacco MIGRATION.[id number] [id number] Information not available 05/27/2022 Are There Any Smokers In Your House? No Information not available 07/07/2022 How Much Tobacco Do You Smoke? No MIGRATION.0301 [id number] Information not available 05/27/2022 Do You Feel Stressed (tense, Restless, Nervous, Or Anxious, Or Unable To Sleep At Night)? [id number] Information not available 07/07/2022 Do You Use Any Illicit Or Recreational Drugs? No Information not available 07/07/2022 Do You Use Sunscreen Routinely? Yes Information not available 07/07/2022 Has Tobacco Cessation Counseling Been Provided? No Information not available 07/07/2022 How Many Years Have You Smoked Tobacco? 0 Information not available 07/07/2022 Have You Recently Traveled Abroad? No Information not available 07/07/2022 Do You Or Have You Ever Used Any Other Forms Of Tobacco Or Nicotine? No Information not available 07/07/2022 Sex: Female Functional Status Question Answer Note LastModified by Organizat ion Details LastModified Time What is your exercise level? Occasional [id number] Information not available 05/27/2022 Mental Status None recorded. Family History Relationship Description Onset Age of this Age Resolved Age Notes LastModified by Organization Details LastModified Time Father Heart disease [id number] [id number] Not available 05/27/2022 00:59:55 Father Chronic obstructive pulmonary disease [email or web address] Not available 02/13 10:28:06 Mother Chronic obstructive pulmonary disease 76 [email or web address] Not available 02/13 10:28:06 Mother Thyroidectom y [email or web address] Not available 02/13 10:28:06 Sister Diabetes mellitus [id number].600 [id number] Not available 05/27/2022 00:59:55 Daughter Lupus erythematosu s 35 [email or web address] Not available 02/13 10:28:06 Daughter Multiple sclerosis Not available 02/13 10:28:06 Son Obstructive sleep apnea syndrome [email or web address] Not available 02/13 10:28:06 Paternal Grandmother Malignant tumor of breast [email or web address] Not available 02/13 10:28:06 Maternal Grandfather Chronic obstructive pulmonary disease [email or web address] Not available 02/13 10:28:06 Maternal Grandmother Malignant tumor of colon [email or web address] Not available 02/13 10:28:06 Sister Thyroidectom y [email or web address] Not available 02/13 10:28:06 Sister Malignant tumor of thyroid gland [email or web address] Not available 02/13 10:28:06 Maternal Aunt Thyroidectom y [email or web address] Not available 02/13 10:28:06 Medical History Condition Response NERVE DISEASE N BLINDNESS N BLADDER PROBLEMS N KIDNEY STONES N CHICKENPOX N MRSA N OTHER # 1 N INFECTIOUS DISEASE N POLIO N HEART ARRHYTHMIA N LUNG DISEASE/DISORDER N PROSTATE N INSOMNIA N HISTORY OF DRUG ABUSE N COPD N HIGH CHOLESTEROL / HYPERLIPIDEMIA Y Other # 2 N HYPERTHYROIDISM N BLOOD DISEASES N CHRONIC PAIN SYNDROME N HYPOTHYROIDISM N MUMPS N CONSTIPATION N CAROTID BLOCKAGE N DEPRESSION (INCLUDING POST ) N BOWEL PROBLEMS N BACK / NECK PROBLEMS N ATHEROSCLEROSIS N BENIGN PROSTATIC HYPERPLASIA N MEASLES N BREAST PROBLEMS N HYPOTENSION N MYOCARDIAL INFARCTION N OBESITY Y GERD/NAUSEA N ANEURYSM N OSTEOPOROSIS N CORONARY ARTERY DISEASE (CAD) N ADDICTION CONCERNS N ARTHRITIS N Impotence N APPENDICITIS N SKIN PROBLEMS Y DIABETES, TYPE N BAD TEETH N PERIPHERAL VASCULAR DISEASE N HEARTBURN / REFLUX N MUSCLE,JOINT OR BONE PROBLEMS N BLOOD CLOTS N AUTISM SPECTRUM DISORDER (ASD) N ASTHMA N HEPATITIS / LIVER DISEASE N CATARACTS N GOUT N ALZHEIMER'S DISEASE N Brain Problems N HERPES N DEMENTIA N HEADACHES/MIGRAINES N GI PROBLEMS N Low Testosterone N PACEMAKER N Blood Disorder N HEART DISEASE/HEART PROBLEMS N INFERTILITY N AIDS/HIV N KIDNEY DISEASE N CHEMOTHERAPY / RADIATION N MULTIPLE SCLEROSIS N LIVER DISEASE N MALE HYPOGONADISM N HYPERTENSION Y Deficiency Y CARDIAC ARRHYTHMIA Y CANCER: SPECIFY N ANXIETY DISORDER Y BLOOD TRANSFUSION N ANEMIA/BLOOD DISORDER N CHRONIC EAR INFECTIONS N Gall Stones N ATRIAL FIBRILLATION N PULMONARY EMBOLISM N BRONCHITIS N AUTOIMMUNE DISEASE N GLAUCOMA N Gynecological History Statement/Question Response How many live births 2 Date of Last Colonoscopy Date of Last Mammogram Date of LMP Most Recent Bone Density Date of Last Pap Current Control Method Menopause Obstetrics History GPAL:G 2 P 2 0 0 2 Type Value Multiple Births 0 Full Term 2 Induced 0 Spontaneous 0 Premature 0 Living 2 Ectopics 0 Total 2 Immunizations Vaccine Type Date Status Note Provider Nam e and Address Organization Details Recorded Time Influenza, recombinant, quadrivalent, PF 9 completed [facility] 06/14/2023 19:02:08 zoster recombinant 9 completed [facility] 06/14/2023 19:02:08 COVID-19, mRNA, LNP-S, PF, 30 mcg/0.3 mL dose 1 completed [facility] 06/14/2023 19:02:08 COVID-19, mRNA, LNP-S, PF, 30 mcg/0.3 mL dose 1 completed [facility] 06/14/2023 19:02:08 Influenza, split virus, quadrivalent, PF 3 completed [facility]ta [facility]rieta [facility] 06/14/2023 19:12:05 Pneumococcal conjugate PCV20, polysaccharide [id number] conjugate, adjuvant, PF 4 completed Saman Rosa MD [address] [place] [address], [address], [address], [facility] 06/18/2023 13:07:38 Influenza, split virus, trivalent, PF 3 completed ASMITA Lara null, [facility] [employer] [facility] 11/02/2023 18:04:27 COVID-19, mRNA, LNP-S, PF, 30 mcg/0.3 mL dose 1 completed Roberta Serrano null, [facility] 06/14/2023 19:02:08 COVID-19, mRNA, LNP-S, PF, 100 mcg/0.5mL dose or 50 mcg/0.25mL dose 1 completed Roberta Serrano null, [facility] 06/14/2023 19:02:08 COVID-19, mRNA, LNP-S, PF, 100 mcg/0.5mL dose or 50 mcg/0.25mL dose 1 completed Roberta Zach null, [facility] 06/14/2023 19:02:08 zoster live 9 completed Roberta Murrieta null, [facility] 06/14/2023 19:02:08 zoster recombinant 9 completed Not Available [facility] hospital 03/18/2023 00:24:04 Influenza, split virus, quadrivalent, preservative 9 completed Roberta Zach [employer], [facility] 06/14/2023 19:02:08 Influenza, split virus, trivalent, preservative 3 completed Not Available [facility] 03/18/2023 00:24:04 Influenza, split virus, quadrivalent, PF 2 completed Not Available [facility] 03/18/2023 00:24:04 Tdap 8 completed Not Available [facility] 03/18/2023 00:24:04 Influenza, split virus, quadrivalent, PF 0 completed Not Available [facility] 03/18/2023 00:24:04 Influenza, split virus, quadrivalent, PF 8 completed Not Available [facility] 03/18/2023 00:24:04 Influenza, high-dose, trivalent, PF 4 completed Saman Rosa MD [address], [place], [address], [place] [facility] 02/08/2024 18:22:55 Past Encounters Encounter ID Performer Location Encounter Start Date Encounter Closed Date Diagnosis/Indication Diagnosis SNOMED-CT Code Diagnosis ICD10 Code Diagnosis Note [id number] Saman moy MD [facility] Internal Med [address] [facility] [address] [place] [address] 05/29/2020 00:00:00 05/29/2020 18:15:41 [id number] [facility] [place] [address] [place] [address] 06/17/2020 00:00:00 06/17/2020 16:08:02 [id number] [facility] [place] [address] [facility] [address] [place] [address] 07/15/2020 00:00:00 07/16/2020 12:48:11 [id number] MD KARIME [facility] Internal Med [address] [facility] [address] [place] [address] 10/15/2020 00:00:00 10/15/2020 11:07:56 [id number] Saman moy MD [facility] Internal [facility] [address] [facility] [address] [place] [address] 04/22/2021 00:00:00 04/22/2021 15:18:54 [id number] Saman moy MD [facility] Internal Med [address] [facility] [address] [place] [address] 09/02/2021 00:00:00 09/02/2021 14:18:40 [id number] MD KARIME [facility] Internal Med [address] [facility] [address] [place] [address] 11/04/2021 00:00:00 11/17/2021 12:56:[id number] [facility] Podiatry [address] [address] 12/02/2021 00:00:00 12/02/2021 16:45:42 [id number] Isai Taylor DPM S_[facility] Podiatry [place] [address] [place] [address] [address] [place] [address] 12/15/2021 00:00:00 12/15/2021 09:47:46 [id number] Saman moy MD S_[facility] Internal Med [facility] [address] [facility], [facility] [address] [place] [address] 03/10/2022 00:00:00 03/10/2022 09:51:32 [id number] Saman moy MD S_[facility] Internal Med [place] [address] [place] [address] , [place] [address] 06/29/2022 09:31:17 06/29/2022 10:14:02 Screening - NAD [id number] Z13.9 C-scope: Dr. Arnold horta 03/13/2010 , tubular adenoma, and repeat in 7-10 years 12/28/18: Dr Barbosa n: C-scope: To get a MRI cecum d/t a submucosal nodule in area of appendixMR I 01/09/2019 , now sees OB Mammogram: 11/04/16 neg as per her history, get anotherMam mogram: 07/19/18: NegMammogr am: 12/08/2019 : NegMammogr am: 02/17/2021 : Birads 0, US L breast 03/12/2021 : Neg, next in 6 monthsUS 09/15/21: L US breast: NegMammogr am: 02/18/2022 : Neg PAP: Dr Barron in [facility] on 01/13/2021 DEXA: 12/07/16: NegDEXA: 06/07/2019 : Osteopenia , on ca and vit dDEXA: 09/15/2021 : Osteopenia , on ca and vit d UTD yearly flu shot 12/22/18UT D Tdap. 03/01/18UT D on shingrix both shots 12/15Get PCV #23 wants to wait till 63 years s/p COVID 19 vaccine RTC in 4 monthswith labsER if worseshe did verbalize her understand ing of the above Neck pain [id number] M54.2 S/p MRI c-spine 06/07/2019 and then Xray 06/14/[address] Erin Riddle [facility] 09/07/2019 - 0: s/p c5-6 and c6-7 Dr Guy in ER to R/o DVT s/p US was negativeKe ep apt with Dr Riddle, does well, but did not see him in 08/2021, no complaints Liver enzy mes level above reference range 127717386 R74.01 07/01/17: Hep panel: negUS abd: 07/01/17: Fatty liverUS liver 11/23/18Ad vised to lose weight, with [facility] to get gastric band surgery, date is not yet determined , will need cardiac clearance S/p liver bx Dr Joiner 08/18/2021 : Steatohepa titisGet the apt with Caleb Chacon [employer]CEIVING [employer]OCIATE Hyperlipidemia 29587717 E78.5 On fenofibrat e to 145mg daily, was not taking this, was to restart 03/10/2022 but not taking thisDiet and exerciseDo es wellRepeat the labs Cyst of ovary 54348610 N 83.209 S/p MRI pelvis 01/09/19Ke ep apt with OB, as per her history she did have the surgery to remove a cyst on the L ovary, this was done laproscopi nikita and she is doing very well Essential hypertension 48522497 I10 ECHO 10/28/15: N LVSFx EF 60%ECHO 05/27/2021 : N LVSFx, EF 65%, trace MROn lisinopril 10mg bidOff digoxinOn ASAOn bumex, advised to take it only as needed 11/04/2021 On metoprolol 25mg dailyDominic HV Dr Graham Atrial fibrillation 4943 6004 I48.91 On metoprolol 25[address] Graham [facility] Chronic ki dney disease 358789343 N18.[address] Chen get a another referralOn deon Is not seeing Dr Chen IJ at this timeOn calcitriol On bumex 1mg daily, will take this as needed Anxiety 91138172 F41.9 On sertraline 25mg dailyDoes wellNot suicidal or homicidal and declines any psychiatry referrals Obesity 364751043 E66.9 S/p Gastric sleeve 08/18/2021 : Dr Chirinos , next f/u 09/18/2021 Now on vit B12 injection every 3 weeks as per her history Lesion of skin of face 7385938440 [address] Stout and Dr Arce and Dr Grossman in the past2019: Dr Blanton: Seborrhic dermatitis , cyst L scalp, AK face, seborrhic keratosis, f/u in 6 months Vitamin D deficiency 347 71314 E55.9 Get labs Hyperglycemia 68796319 R 73.9 Get labs Paronychia of toe of left foot 2965575714 5152868 L03.032 Dr Taylor 12/15/2021 Obstructiv e sleep apnea syndrome 25559709 G47.33 ARLINE on CPAP and states that she is compliant she has seen Dr Graham in 03/2020 and has been given a new CPAP machine Appendicitis 45493243 K3 7 See case 06/25/2022 : acute appendicit is, admitted to [facility] S/p appy done 06/25/2022 Dr Soto Serum adam min B12 below reference range 743710394 R79.89 On B12 every [address] Joiner [id number] Maged bermudez MD [facility] General Surgery [address] [place] [address] 07/07/2022 12:03:06 07/07/2022 13:36:[id number] [facility] Internal Med [place] [address] [place] [address] 09/24/2022 10:37:52 09/24/2022 11:09:33 Screening - NAD [id number] Z13.9 C-scope: Dr. Arnold horta 03/13/2010 , tubular adenoma, and repeat in 7-10 years 12/28/18: Dr Barbosa n: C-scope: To get a MRI cecum d/t a submucosal nodule in area of appendixMR I 01/09/2019 , now sees OB Mammogram: 11/04/16 neg as per her history, get anotherMam mogram: 07/19/18: NegMammogr am: 12/08/2019 : NegMammogr am: 02/17/2021 : Birads 0, US L breast 03/12/2021 : Neg, next in 6 monthsUS 09/15/21: L US breast: NegMammogr am: 02/18/2022 : Neg PAP: Dr Barron in [facility] on 01/13/2021 DEXA: 12/07/16: NegDEXA: 06/07/2019 : Osteopenia , on ca and vit dDEXA: 09/15/2021 : Osteopenia , on ca and vit d UTD yearly flu shot 12/22/18UT D Tdap. 03/01/18UT D on shingrix both shots 12/15Get PCV #23 wants to wait till 63 years s/p COVID 19 vaccine RTC in 4 monthswith labsER if worseshe did verbalize her understand ing of the above Neck pain 04282746 M54.2 S/p MRI c-spine 06/07/2019 and then Xray 06/14/[address] Erin Riddle [facility] 09/07/2019 - 0: s/p c5-6 and c6-7 Dr Riddle Seen in ER to R/o DVT s/p US was negative Keep apt with Dr Riddle, does well, but did not see him in 08/2021, no complaints Liver enzy mes level above reference range 992489843 R74.01 07/01/17: Hep panel: negUS abd: 07/01/17: Fatty liverUS liver 11/23/18Ad vised to lose weight, with [facility] to get gastric band surgery, date is not yet determined , will need cardiac clearance S/p liver bx Dr Joiner 08/18/2021 : Steatohepa titisGet the apt with Caleb Chacon [employer]IV[employer]OC[employer]ATE Hyperlipidemia 48217933 E78.5 On fenofibrat e to 145mg daily, was not taking this, wants to diet some more 09/24/2022 Diet and exerciseDo es wellRepeat the labs Cyst of ovary 30402169 N 83.209 S/p MRI pelvis 01/09/19Ke ep apt with OB, as per her history she did have the surgery to remove a cyst on the L ovary, this was done laproscopi nikita and she is doing very well Essential hypertension 75739034 I10 ECHO 10/28/15: N LVSFx EF 60%ECHO 05/27/2021 : N LVSFx, EF 65%, trace MROn lisinopril 10mg bidOff digoxinOn ASAOn bumex, advised to take it only as needed 11/04/2021 [facility] Atrial fibrillation 4943 6004 I48.91 On metoprolol 25mg daily Dr Graham [facility] Chronic ki dney disease 097538852 N18.9 On calcitriol as per Dr Chen get a another referralOn deon Is not seeing Dr Chen IJ at this timeOn calcitriol On bumex 1mg daily, will take this as needed Anxiety 36067583 F41.9 On sertraline 25mg dailyDoes wellNot suicidal or homicidal and declines any psychiatry referrals Obesity 002954904 E66.9 S/p Gastric sleeve 08/18/2021 : Dr Chirinos , next f/u 09/18/2021 Now on vit B12 injection every 3 weeks as per her history Lesion of skin of face 2023533561 [address] Stout and Dr Arce and Dr Grossman in the past 08/18/2019 : Dr Blanton: Seborrhic dermatitis , cyst L scalp, AK face, seborrhic keratosis, f/u in 6 months Vitamin D deficiency 347 25143 E55.9 Get labs Hyperglycemia 81047497 R 73.9 Get labs Paronychia of toe of left foot 8062949537 3256844 L03.032 Dr Taylor 12/15/2021 Obstructiv e sleep apnea syndrome 63345013 G47.33 ARLINE on CPAP and states that she is compliant she has seen Dr Graham in 03/2020 and has been given a new CPAP machine Appendicitis 24520805 K3 7 See case 06/25/2022 : acute appendicit is, admitted to [facility] S/p appy done 06/25/2022 Dr Soto Serum adam min B12 below reference range 318332631 R79.89 On B12 every [address] Joiner Screening mammography 24 958145 Z12.31 [id number] Saman moy MD [facility] Internal Med [place] [address] [facility] [place] [address] 11/23/2022 12:36:57 11/23/2022 13:04:33 Screening - NAD 351870800 Z13.9 C-scope: Dr. Arnold horta 03/13/2010 , tubular adenoma, and repeat in 7-10 years 12/28/18: Dr Barbosa n: C-scope: To get a MRI cecum d/t a submucosal nodule in area of appendixMR I 01/09/2019 , now sees OB Mammogram: 11/04/16 neg as per her history, get anotherMam mogram: 07/19/18: NegMammogr am: 12/08/2019 : NegMammogr am: 02/17/2021 : Birads 0, US L breast 03/12/2021 : Neg, next in 6 monthsUS 09/15/21: L US breast: NegMammogr am: 02/18/2022 : Neg PAP: Dr Barron in [facility] on 01/13/2021 DEXA: 12/07/16: NegDEXA: 06/07/2019 : Osteopenia , on ca and vit dDEXA: 09/15/2021 : Osteopenia , on ca and vit d UTD yearly flu shot 12/22/18UT D Tdap. 03/01/18UT D on shingrix both shots 12/15Get PCV #23 wants to wait till 63 years s/p COVID 19 vaccine RTC in 4 monthswith labsER if worseshe did verbalize her understand ing of the above Folliculitis 69782200 L7 3.9 Most likely not a spider bite as did not see the spider, but could be folliculit isAugmenti n causes stomach upset, not really allergy, will get on cephalexin 250mg po qid, keep area clean and dry, ER if worse [id number] Maged bermudez MD [facility] General Surgery [address] [place] [address] 11/26/2022 12:46:06 01/27/2023 12:17:59 Abscess of skin and/or subcutaneous tissue 79944108 L02.91 Lower Abdomen [id number] Saman moy MD [facility] Internal Med [address] [place] [address] 02/23/2023 09:47:41 02/23/2023 10:33:50 Screening - NAD 643283451 Z13.9 C-scope: Dr. Arnold horta 03/13/2010 , tubular adenoma, and repeat in 7-10 years 12/28/18: Dr Barbosa n: C-scope: To get a MRI cecum d/t a submucosal nodule in area of appendixMR I 01/09/2019 , now sees OB Mammogram: 11/04/16 neg as per her history, get anotherMam mogram: 07/19/18: NegMammogr am: 12/08/2019 : NegMammogr am: 02/17/2021 : Birads 0, US L breast 03/12/2021 : Neg, next in 6 monthsUS 09/15/21: L US breast: NegMammogr am: 02/18/2022 : Neg PAP: Dr Barron in [facility] on 01/13/2021 DEXA: 12/07/16: NegDEXA: 06/07/2019 : Osteopenia , on ca and vit dDEXA: 09/15/2021 : Osteopenia , on ca and vit d UTD yearly flu shot 12/22/18UT D Tdap. 03/01/18UT D on shingrix both shots 12/15Get PCV #23 wants to wait till 63 yearsGet RSV vaccine s/p COVID 19 vaccine RTC in 4 monthswith labsER if worseshe did verbalize her understand ing of the above Neck pain 48074653 M54.2 S/p MRI c-spine 06/07/2019 and then Xray 06/14/[address] Erin Riddle CNRamón 09/07/2019 - 0: s/p c5-6 and c6-7 Dr Riddle Seen in ER to R/o DVT s/p US was negative Keep apt with Dr Riddle, does well, but did not see him in 08/2021, no complaints Liver enzy mes level above reference range 707134019 R74.01 07/01/17: Hep panel: negUS abd: 07/01/17: Fatty liverUS liver 11/23/18Ad vised to lose weight, with [facility] to get gastric band surgery, date is not yet determined , will need cardiac clearance S/p liver bx Dr Joiner 08/18/2021 : Steatohepa titisGet the apt with Efren Chacon [employer]PING [employer] RECEIVING ASSOCIATE, 07/17/2022 , next in one year Hyperlipidemia 94339893 E78.5 On fenofibrat e to 145mg daily, was not taking this, wants to diet some more 09/24/2022 Diet and exerciseDo es wellRepeat the labs Cyst of ovary 67982628 N 83.209 S/p MRI pelvis 01/09/19Ke ep apt with OB, as per her history she did have the surgery to remove a cyst on the L ovary, this was done shola shelton and she is doing very well Essential hypertension 25486297 I10 ECHO 10/28/15: N LVSFx EF 60%ECHO 05/27/2021 : N LVSFx, EF 65%, trace MROff digoxin On lisinopril 10mg bidOn ASAOn bumex, advised to take it only as needed 11/04/2021 On metoprolol 25mg dailyOn K See [facility] Dr Graham Atrial fibrillation 4060 6004 I48.91 On metoprolol 25mg daily Dr Graham [facility] Chronic ki dney disease 502226839 N18.9 On calcitriol as per Dr Chen get a another referralOn deon Is not seeing Dr Chen IJ at this timeOn calcitriol On bumex 1mg daily, will take this as needed Anxiety 16300368 F41.9 On sertraline 25mg dailyDoes wellNot suicidal or homicidal and declines any psychiatry referrals Obesity 658865242 E66.9 S/p Gastric sleeve 08/18/2021 : Dr Chirinos , next f/u 09/18/2021 Now on vit B12 injection every 3 weeks as per her history Lesion of skin of face 9231472780 [address] Stout and Dr Arce and Dr Grossman in the past 08/18/2019 : Dr Blanton: Seborrhic dermatitis , cyst L scalp, AK face, seborrhic keratosis, f/u in 6 months Vitamin D deficiency 347 43856 E55.9 Get labs Hyperglycemia 86325392 R 73.9 Get labs Paronychia of toe of left foot [id number] 0681275 L03.032 Dr Taylor 12/15/2021 Obstructiv e sleep apnea syndrome 71436582 G47.33 ARLINE on CPAP and states that she is compliant she has seen Dr Graham in 03/2020 and has been given a new CPAP machine Appendicitis 45150978 K3 7 See case 06/25/2022 : acute appendicit is, admitted to [facility] S/p appy done 06/25/2022 Dr Soto Serum adam min B12 below reference range 411100203 R79.89 On B12 every [address] Joiner Screening mammography 24 825784 Z12.[address] A/P 01/25/2023 : [facility] 02/08/2023 : Acute sigmoid diverticul itisCT A/P 02/12/2023 Does well now Visual disturbance 02235 001 H53.[address] [place] [address] Puja reynolds MD 10/14/2022 Vaginitis 90994652 N76.0 Not noted some vaginal itching and d/c, get on diflucan Eruption 917416226 R21 Noted on the abd fold, get on nystatin-t riamcinolo [place] [id number] Elmira Pierre MD [facility] Pulmonolo gy [address], [address] [address] 05/19/2023 09:38:39 05/20/2023 08:39:38 Obstructive sleep apnea syndrome 76517008 G47.33 [id number] Saman moy MD [facility] Internal Med [address] [place] [address] 06/15/2023 09:44:04 06/15/2023 10:26:31 Screening - NAD 055544781 Z13.9 C-scope: Dr. Arnold horta 03/13/2010 , tubular adenoma, and repeat in 7-10 years 12/28/18: Dr Barbosa n: C-scope: To get a MRI cecum d/t a submucosal nodule in area of appendixMR I 01/09/2019 , now sees OB Mammogram: 11/04/16 neg as per her history, get anotherMam mogram: 07/19/18: NegMammogr am: 12/08/2019 : NegMammogr am: 02/17/2021 : Birads 0, US L breast 03/12/2021 : Neg, next in 6 monthsUS 09/15/21: L US breast: NegMammogr am: 02/18/2022 : Neg PAP: Dr Barron in [facility] on 01/13/2021 DEXA: 12/07/16: NegDEXA: 06/07/2019 : Osteopenia , on ca and vit dDEXA: 09/15/2021 : Osteopenia , on ca and vit d UTD yearly flu shot 12/22/18UT D Tdap. 03/01/18UT D on shingrix both shots 12/15Get PCV #23 wants to wait till 63 yearsGet RSV vaccine s/p COVID 19 vaccine RTC in 4 monthswith labsER if worseshe did verbalize her understand ing of the above Neck pain 55474193 M54.2 S/p MRI c-spine 06/07/2019 and then Xray 06/14/[address] Erin Riddle [facility] 09/07/2019 - 0: s/p c5-6 and c6-7 Dr Riddle Seen in ER to R/o DVT s/p US was negative Keep apt with Dr Riddle, does well, but did not see him in 08/2021, no complaints Liver enzy mes level above reference range 255705369 R74.01 07/01/17: Hep panel: negUS abd: 07/01/17: Fatty liverUS liver 11/23/18Ad vised to lose weight, with [facility] to get gastric band surgery, date is not yet determined , will need cardiac clearance S/p liver bx Dr Joiner 08/18/2021 : Steatohepa titisGet the apt with Efren Chacon [employer]IPPING AND RECEIVING ASSOCIATE, 07/17/2022 , next in one year Hyperlipidemia 69069471 E78.5 On fenofibrat e to 145mg daily, was not taking this, wants to diet some more 09/24/2022 Diet and exerciseDo es wellRepeat the labs Cyst of ovary 26920096 N 83.209 S/p MRI pelvis 01/09/19Ke ep apt with OB, as per her history she did have the surgery to remove a cyst on the L ovary, this was done shola shelton and she is doing very well Essential hypertension 52626944 I10 ECHO 10/28/15: N LVSFx EF 60%ECHO 05/27/2021 : N LVSFx, EF 65%, trace MRECHO 04/20/2023 : EF 60%Off digoxin On lisinopril 10mg bidOn ASAOn bumex, advised to take it only as needed 11/04/2021 On metoprolol 25mg dailyNot on K See [facility] Dr Graham 03/18/2023 , next in 3 months Atrial fibrillation 4943 6004 I48.91 On metoprolol 25mg daily Dr Graham [facility] Chronic ki dney disease 824481594 N18.9 On calcitriol as per Dr Chen get a another referralOn deon Is not seeing Dr Chen IJ at this timeNot on calcitriol On bumex 1mg daily, will take this as needed Anxiety 73666344 F41.9 On sertraline 25mg dailyDoes wellNot suicidal or homicidal and declines any psychiatry referrals Obesity 965875488 E66.9 S/p Gastric sleeve 08/18/2021 : Dr Chirinos , next f/u 09/18/2021 Now on vit B12 injection every 3 weeks as per her history Lesion of skin of face 6431544319 [address] Stout and Dr Arce and Dr Grossman in the past 08/18/2019 : Dr Blanton: Seborrhic dermatitis , cyst L scalp, AK face, seborrhic keratosis, f/u in 6 months Vitamin D deficiency 347 53981 E55.9 Get labs Hyperglycemia 08961851 R 73.9 Get labs Paronychia of toe of left foot 9034483106 9963518 L03.032 Dr Taylor 12/15/2021 Obstructiv e sleep apnea syndrome 82819845 G47.33 ARLINE on CPAP and states that she is compliant she has seen Dr Graham in 03/2020 and has been given a new CPAP machine Sleep study 05/17/2023 Dr Pierre 05/19/2023 , next on 05/18/2023 Appendicitis 25546636 K3 7 See case 06/25/2022 : acute appendicit is, admitted to [facility] S/p appy done 06/25/2022 Dr Soto Serum adam min B12 below reference range 811567119 R79.89 On B12 every [address] Joiner Screening mammography 24 512381 Z12.[address] A/P 01/25/2023 : Acute [facility] 02/08/2023 : Acute sigmoid diverticul itisCT A/P 02/12/2023 Does well now Visual disturbance 16063 001 H53.[address] [place] [address] Puja reynolds MD 10/14/2022 Eruption 011299111 R21 Noted on the abd fold, get on nystatin-t riamcinolo ne Adult heal th examination 853367762 Z00.00 Screening for disorder 559204351 Z13.9 Screening for osteoporosis 360734015 Z13.820 Administra tion of pneumococcal vaccine 41896348 Z23 [id number] Isai Taylor DPM [facility] Podiatry [place] [address] [place] [address] 06/24/2023 11:26:15 06/24/2023 14:17:09 Closed fracture of lateral malleolus 81092489 S82.65XA avulsion fracture distal tip of the left fibulaRx cam bootminima l weight-lucinda ring the next 5 weeksrice therapyfol low-up in 4-5 weeks for x-rays Sprain of lateral ligament of ankle joint 582194592 S93.491A as above [id number] Isai Taylor DPM [facility] Podiatry [place] [address] [place] [address] 07/26/2023 10:26:49 07/27/2023 11:49:18 Closed fracture of lateral malleolus 16894521 S82.65XA avulsion fracture distal tip of the left fibulaRx cam boot- Recommend utilizingm inimal weight-lucinda ring the next 5 weeksrice therapyfol low-up in 4-5 weeks for x-rays Sprain of lateral ligament of ankle joint 809226177 S93.491A as above Noncomplia nce with treatment 7165523 Z91.199 not utilizing Cam boot [id number] Isai Taylor DPM [facility] Podiatry [place] [address] [place] [address] 09/09/2023 10:30:02 09/09/2023 11:31:38 Closed fracture of lateral malleolus 24451679 S82.65XK avulsion fracture distal tip of the left fibulaRx cam boot- Recommend utilizingr ice therapyrec ommend protective weight-lucinda ring when walking on uneven surfacesfo llow-up as needed [id number] Saman moy MD [facility] Internal Med [facility] [address] [facility] [place] [address] 11/02/2023 17:13:10 11/02/2023 18:14:25 Screening - NAD 990032587 Z13.9 C-scope: Dr. Arnold horta 03/13/2010 , tubular adenoma, and repeat in 7-10 years 12/28/18: Dr Barbosa n: C-scope: To get a MRI cecum d/t a submucosal nodule in area of appendixMR I 01/09/2019 , now sees OB Mammogram: 11/04/16 neg as per her history, get anotherMam mogram: 07/19/18: NegMammogr am: 12/08/2019 : NegMammogr am: 02/17/2021 : Birads 0, US L breast 03/12/2021 : Neg, next in 6 monthsUS 09/15/21: L US breast: NegMammogr am: 02/18/2022 : Neg PAP: Dr Barron in [facility] on 01/13/2021 DEXA: 12/07/16: NegDEXA: 06/07/2019 : Osteopenia , on ca and vit dDEXA: 09/15/2021 : Osteopenia , on ca and vit d UTD yearly flu shot 12/22/18UT D Tdap. 03/01/18UT D on shingrix both shots 12/15Get PCV #23Get RSV vaccine s/p COVID 19 vaccine RTC in 6 monthswith labsER if worseshe did verbalize her understand ing of the above Neck pain 03364472 M54.2 S/p MRI c-spine 06/07/2019 and then Xray 06/14/[address] Erin Riddle [facility] 09/07/2019 - 0: s/p c5-6 and c6-7 Dr Riddle Seen in ER to R/o DVT s/p US was negative Keep apt with Dr Riddle, does well, but did not see him in 08/2021, no complaints Liver enzy mes level above reference range 402270455 R74.01 07/01/17: Hep panel: negUS abd: 07/01/17: Fatty liverUS liver 11/23/18Ad vised to lose weight, with [facility] to get gastric band surgery, date is not yet determined , will need cardiac clearance S/p liver bx Dr Joiner 08/18/2021 : Steatohepa titisGet the apt with Efren Chacon [employer]PING AND RECEIVING ASSOCIATE, 07/17/2022 , next in one year Hyperlipidemia 53664839 E78.5 10/18/2023 : LDL 86 On fenofibrat e to 145mg daily, was not taking this, wants to diet some more 09/24/2022 Diet and exerciseDo es wellRepeat the labs Cyst of ovary 47474152 N 83.209 S/p MRI pelvis 01/09/19Ke ep apt with OB, as per her history she did have the surgery to remove a cyst on the L ovary, this was done laptashii nikita and she is doing very well Essential hypertension 48369716 I10 ECHO 10/28/15: N LVSFx EF 60%ECHO 05/27/2021 : N LVSFx, EF 65%, trace MRECHO 04/20/2023 : EF 60%Off digoxin On lisinopril 10mg bidOn ASAOn lisinopril 10mg bidOn bumex, advised to take it only as needed 11/04/2021 On metoprolol 25mg dailyNot on K See [facility] Graham 03/18/2023 , next in 3 months Atrial fibrillation 4943 6004 I48.91 On metoprolol 25mg daily Dr Graham [facility] Chronic ki dney disease 021544049 N18.9 On calcitriol as per Dr Chen get a another referralOn caltrate Is not seeing Dr Chen IJ at this timeNot on calcitriol On bumex 1mg daily, will take this as needed Anxiety 67075371 F41.9 On sertraline 25mg dailyDoes wellNot suicidal or homicidal and declines any psychiatry referrals Obesity 848236630 E66.9 S/p Gastric sleeve 08/18/2021 : Dr Chirinos , next f/u 09/18/2021 Now on vit B12 injection every 3 weeks as per her history Lesion of skin of face 3193084002 [address] Stout and Dr Arce and Dr Grossman in the past 08/18/2019 : Dr Blanton: Seborrhic dermatitis , cyst L scalp, AK face, seborrhic keratosis, f/u in 6 months Vitamin D deficiency 347 65336 E55.9 Get labs Hyperglycemia 94019004 R 73.9 Get labs Paronychia of toe of left foot 4861515794 9324606 L03.032 Dr Taylor 12/15/2021 Obstructiv e sleep apnea syndrome 64187276 G47.33 ARLINE on CPAP and states that she is compliant she has seen Dr Graham in 03/2020 and has been given a new CPAP machine Sleep study 05/17/2023 Dr Pierre 05/19/2023 , next on 05/18/2024 Appendicitis 30260280 K3 7 See case 06/25/2022 : acute appendicit is, admitted to [facility] S/p appy done 06/25/2022 Dr Soto Serum adam min B12 below reference range 261176513 R79.89 On B12 every [address] Joiner Screening mammography 24 916675 Z12.[address] A/P 01/25/2023 : [facility] 02/08/2023 : Acute sigmoid diverticul itisCT A/P 02/12/2023 Does well now Visual disturbance 64193 001 H53.[address] [place] [address] Puja reynolds MD 10/14/2022 Eruption 184442858 R21 Noted on the abd fold, get on nystatin-t riainolo ne Screening for osteoporosis 227026918 Z13.820 Screening for malignant neoplasm of colon 933187388 Z12.11 [id number] [facility] Internal Med [facility] [address] [place] [address] 02/08/2024 11:53:04 02/08/2024 12:00:32 Pain of left shoulder joint 8072780369 5262111 M25.[address] Kathy molina Administra tion of influenza vaccine 37838604 Z23 [id number] Maged Chavez MD [facility] Ortho [place] [address] [place] [address] 02/14/2024 10:26:07 02/14/2024 11:04:25 Pain of left shoulder joint 2949056168 4650265 M25.[id number] [facility] Internal Med [facility] [address] [place] [address] 05/04/2024 15:53:11 05/04/2024 17:14:10 Pain of left shoulder joint 1477593428 6132647 M25.512 Dr Kathy molina 02/14/2024 , s/p shot Screening - NAD 14498295 3 Z13.9 C-scope: Dr. Arnold horta 03/13/2010 , tubular adenoma, and repeat in 7-10 years 12/28/18: Dr Barbosa n: C-scope: To get a MRI cecum d/t a submucosal nodule in area of appendixMR I 01/09/2019 , now sees OB Mammogram: 11/04/16 neg as per her history, get anotherMam mogram: 07/19/18: NegMammogr am: 12/08/2019 : NegMammogr am: 02/17/2021 : Birads 0, US L breast 03/12/2021 : Neg, next in 6 monthsUS 09/15/21: L US breast: NegMammogr am: 02/18/2022 : NegMammogr am: 06/30/2023 : Neg PAP: Dr Barron in [facility] on 01/13/2021 DEXA: 12/07/16: NegDEXA: 06/07/2019 : Osteopenia , on ca and vit dDEXA: 09/15/2021 : Osteopenia , on ca and vit dDEXA: 06/30/2023 : Osteopenia , on ca and vit d UTD yearly flu shot 12/22/18UT D Tdap. 03/01/18UT D on shingrix both shots 12/15Get PCV #23Get RSV vaccine s/p COVID 19 vaccine RTC in 6 monthswith labsER if worseshe did verbalize her understand ing of the above Neck pain 60969290 M54.2 S/p MRI c-spine 06/07/2019 and then Xray 06/14/[address] Erin Riddle [facility] 09/07/2019 - 0: s/p c5-6 and c6-7 Dr Riddle Seen in ER to R/o DVT s/p US was negative Keep apt with Dr Riddle, does well, but did not see him in 08/2021, no complaints Liver enzy mes level above reference range 762918794 R74.01 07/01/17: Hep panel: negUS abd: 07/01/17: Fatty liverUS liver 11/23/18Ad vised to lose weight, with [facility] to get gastric band surgery, date is not yet determined , will need cardiac clearance S/p liver bx Dr Joiner 08/18/2021 : Steatohepa titisGet the apt with Efren Chacon [employer]IPPING AND RECEIVING ASSOCIATE, 07/17/2022 , next in one yearShijorge alberto Chacon NP 06/29/2023 , next in one year Hyperlipidemia 98989638 E78.5 10/18/2023 : LDL 86 On fenofibrat e to 145mg daily, was not taking this, wants to diet some more 09/24/2022 Diet and exerciseDo es wellRepeat the labs Cyst of ovary 94785911 N 83.209 S/p MRI pelvis 01/09/19Ke ep apt with OB, as per her history she did have the surgery to remove a cyst on the L ovary, this was done laptashii nikita and she is doing very well Essential hypertension 14652906 I10 ECHO 10/28/15: N LVSFx EF 60%ECHO 05/27/2021 : N LVSFx, EF 65%, trace MRECHO 04/20/2023 : EF 60%Off digoxin On ASAOn lisinopril 10mg bidOn bumex, advised to take it only as needed 11/04/2021 On metoprolol 25mg dailyNot on K See [facility] Dr Graham Atrial fibrillation 4943 6004 I48.91 On metoprolol 25mg daily Dr Graham [facility] Chronic ki dney disease 548489811 N18.9 On calcitriol as per Dr Chen get a another referralOn deon Is not seeing Dr Chen IJ at this timeNot on calcitriol On bumex 1mg daily, will take this as needed Anxiety 77801461 F41.9 On sertraline 25mg dailyDoes wellNot suicidal or homicidal and declines any psychiatry referrals Obesity 424036266 E66.9 S/p Gastric sleeve 08/18/2021 : Dr Chirinos , next f/u 09/18/2021 Now on vit B12 injection every 3 weeks as per her history Lesion of skin of face 2021895139 [address] Stout and Dr Arce and Dr Grossman in the past 08/18/2019 : Dr Blanton: Seborrhic dermatitis , cyst L scalp, AK face, seborrhic keratosis, f/u in 6 months Vitamin D deficiency 347 65190 E55.9 Get labs Hyperglycemia 99081287 R 73.9 Get labs Paronychia of toe of left foot 1893522543 1215853 L03.032 Dr Taylor 12/15/2021 Obstructiv e sleep apnea syndrome 23287639 G47.33 ARLINE on CPAP and states that she is compliant she has seen Dr Graham in 03/2020 and has been given a new CPAP machine Sleep study 05/17/2023 Dr Pierre 05/19/2023 , next on 05/18/2024 Appendicitis 55366910 K3 7 See case 06/25/2022 : acute appendicit is, admitted to [facility] S/p appy done 06/25/2022 Dr Soto Serum adam min B12 below reference range 245518683 R79.89 On B12 every [address] Joiner Diverticulitis 422152871 K57.92 CT A/P 01/25/2023 : [facility] 02/08/2023 : Acute sigmoid diverticul itisCT A/P 02/12/2023 Does well now Visual disturbance 33999 001 H53.[address] [place] [address] Puja reynolds MD 10/14/2022 Eruption 105157405 R21 Noted on the abd fold, get on nystatin-t riamcinolo neSees dermatolog y Screening mammography 24 550689 Z12.31 Health Concerns Section Related Observation LastModified by Organization Detai ls LastModified Time None Recorded Concern Status LastModified by Organization Details LastModified Time None Recorded Advance Directives Directive N: Payers Encounter Date Sequence Insurance Name Policy Number Policy Martinez Covered Member ID Martinez Member ID Guarantor Name 09/09/2023 1 [place] Jennie Gilbert [id number] Jennie Blocksay 09/09/2023 2 WPS - FOR LIFE (MEDICARE SUPPLEMENT) Jennieluzmaria Blocksay [id number] Jennie Blocksay 11/02/2023 1 [place] Jennie Raul BlockOfelia [id number] Jennie C Ofelia 11/02/2023 2 WPS - FOR LIFE (MEDICARE SUPPLEMENT) Jennieluzmaria Blocksay [id number] Jennie Blocksay 02/08/2024 1 [place] Jennie Raul BlockOfelia [id number] Jennie Raul BlockOfelia 02/08/2024 2 WPS - FOR LIFE (MEDICARE SUPPLEMENT) Jennie Blocksay [id number] Jennie Blocksay 02/14/2024 1 [place] Jennie Gilbert [id number] Jennie Gilbert 02/14/2024 2 WPS - FOR LIFE (MEDICARE SUPPLEMENT) Jennie Gilbert [id number] Jennie Gilbert 05/04/2024 1 [place] Jennie Gilbert [id number] Jennie Gilbert 05/04/2024 2 WPS - FOR LIFE (MEDICARE SUPPLEMENT) Jennie Gilbert [id number] Jennie Gilbert Notes Date Note Type Note Provider Name and Address Organization Details Recorded Time 09/09/2023 text/html . Patient is a 63-year-old female who returns the office for follow-up on distal tip avulsion fracture of the lateral left fibula. Patient had repeat x-rays which still shows a minor fracture line. I did discuss continued treatment options I do not recommend surgery as this will likely cause more issues for the patient due to the small avulsion fracture and it being nondisplaced she will likely have some minor discomfort I did recommend that she utilize protective ankle brace. Patient denies any other complaints. Isai Taylor, [address] [place] [address], [place], [address], [facility] [employer] 09/09/2023 11:09:44 11/02/2023 text/html 01/04/17CV:Here as she has neck pain that radiates down into her R armFeels that the pain is 'bad enough' so she does not sleepShe states that she feels that the work stress caused this also, she has done ice and heat and massage, she feels that it is a constant pain, and goes to her handShe is L HD but uses her R hand alsoShe denies any remote or acute traumaGradual in onset, more on the R lower neck, sharp, worse with laying on the L side, better with ice and the tramadolNo N/T in the arm or the forearm and hand, but has pain in the hand and in the shoulderShe feels that the chemical pathologist is good.She is using an ergonomic [employer] 3D and cavazos boardOV 01/26/17:S/p fracture of R wrist and it is now in cast, and did see an ortho and was in the UC 01/18/17, and was seen in [facility] ER on 01/18/17 treated with vicodin, and then was seen [facility] with Dr. Irby and he put in a hard cast , and is to see him on 02/17/17, no surgery and is doing well this timeOV 04/29/17:She states that she is here as she has been having some chest painsShe states that she was seen in the ER, and was admitted and then she did have a stress testShe states that she is to follow up with Dr Graham the cardiologistToday she states that she is still having chest pain, this is described as a sharp discomfort in the mid chest and feels like a pressure, this is persistent and not related to any exertionNo SOB, BRUNO or PNDNo presyncope or syncopeOV 05/04/17:She is here as she was seen in the ERShe feels that she is doing well at this timeShe was told to keep her apt with the heel room supervisor OV 06/01/17:Here for her review to see how the zoloft is workingAdrienne states that it is helped a lotShe is here with her husbandOV 08/31/17:Here for her routine aptShe states that she is doing wellNo new labsOV 03/01/18:Here for her 6 month aptShe feels that she is doing wellSoziel did do the labs on 02/25/18OV 06/03/18:Here for her routine aptFeels Miguel A did do the labs on 05/31/18 and is here to review theseAdrienne does want to restart the phentermine OV 09/13/18:Here for her routine aptFeels wellDid do labsOV 11/29/18:Here for her post hospital aptShe is doing well nowAdrienne did have diverticulitis and now is to get a c-scope with Dr GuevaraOV 01/24/19:Here for her routine aptShe feels Miguel A has done labs for the hepatologistDoes have a rash on the post L earOV 04/18/2019:Here for her routine aptShe feels Aideeoziel does have a bump on the L thumbShe bumped the thumb while carrying a tub about 2 weeksShe is L HDOV 08/22/2019:Here for her routine aptShe feels wellDid see Dr Valladares but wants to now see Dr Haas has seen a new derm Dr Méndez is also wanting to get back on the phentermine as she has regained her weight up to 20 pounds, she has taken this in the past and has done very well with itOV 11/07/2019;Here for her routine aptShe is doing wellShe did see Dr Riddle, s/p surgery and the wound is healed on the neckShe also did see Dr Blanton and also did her labsShe would like to get back on the phentermineOV 12/13/2019:Here for her phentermine renewalShe states that she is doing wellShe has been trying to dietNo complaints todayOV 01/24/2020:Here for her phentermine medicationShe feels very wellShe has continued to lose weight and has tolerated the phentermine very well, has noted some tachycardia but no other symptomsShe is here also for her flu shotOV 02/14/2020;ACV:C/o L sided neck pain since last Wednesday or soFeels that this could be from her raising the head end of the bed to help with her heartburnNow pain in the L side, cannot turn the head to the L and to the backNo N/T or weakness in the UE or LENo relief with the PT that she has been gettingOV 05/29/2020:Here for her routine aptShe feels well OV 10/15/2020:Here for her routine aptShe is doing wellShe did do the labs yesterday OV 04/22/2021:Here for her routine aptShe feels wellShe is now referred herself to do gastric lap band surgeryShe did see cardiologyOV 09/02/2021:Here for her routine aptShe is doing wellNo new labs notedOV 11/04/2021:Here for her routine aptShe is doing well, she did do the labs on 11/03/2021, she is s/p surgery OV 03/10/2022:Here for her f/u apt, she feels well, labs done on 03/09/2022 OV 06/29/2022:Here for her f/u apt, she is s/p appy done on 06/25, by Dr Soto, now is doing well, here with her , no new labs OV 09/24/2022: Here for her f/u apt, she is doing well today OV 11/23/2022: Here for her ACV, see case, c/o 'spider bite', now is swollen and tender, did note a fever but none now OV 02/23/2023: Here for her f/u apt, she is recently d/c from the hospital for diverticulitis and c.diff, is doing well now OV 06/15/2023: Here for her f/u apt, she is also here for her MWV, is doing well today OV 11/02/2023: Here for her f/u apt, she is doing very well today, she would like a referral to GI to get her c-scope, she is here with her Saman Rosa MD [address] [place] [address], [facility] [address], [place], [address], [facility] [employer] 11/02/2023 18:13:15 02/08/2024 text/html 01/04/17CV:Here as she has neck pain that radiates down into her R armFeels that the pain is 'bad enough' so she does not sleepShe states that she feels that the work stress caused this also, she has done ice and heat and massage, she feels that it is a constant pain, and goes to her handShe is L HD but uses her R hand alsoShe denies any remote or acute traumaGradual in onset, more on the R lower neck, sharp, worse with laying on the L side, better with ice and the tramadolNo N/T in the arm or the forearm and hand, but has pain in the hand and in the shoulderShe feels that the chemical pathologist is good.She is using an ergonomic mouse and cavazos boardOV 01/26/17:S/p fracture of R wrist and it is now in cast, and did see an ortho and was in the UC 01/18/17, and was seen in [facility] ER on 01/18/17 treated with vicodin, and then was seen CNE with Dr. Irby and he put in a hard cast , and is to see him on 02/17/17, no surgery and is doing well this timeOV 04/29/17:She states that she is here as she has been having some chest painsShe states that she was seen in the ER, and was admitted and then she did have a stress testShe states that she is to follow up with Dr Graham the cardiologistToday she states that she is still having chest pain, this is described as a sharp discomfort in the mid chest and feels like a pressure, this is persistent and not related to any exertionNo SOB, BRUNO or PNDNo presyncope or syncopeOV 05/04/17:She is here as she was seen in the ERShe feels that she is doing well at this timeShe was told to keep her apt with the heel room supervisor OV 06/01/17:Here for her review to see how the zoloft is workingAdrienne states that it is helped a lotShe is here with her husbandOV 08/31/17:Here for her routine aptShe states that she is doing wellNo new labsOV 03/01/18:Here for her 6 month aptShe feels that she is doing wellShe did do the labs on 02/25/18OV 06/03/18:Here for her routine aptFeels Miguel A did do the labs on 05/31/18 and is here to review theseAdrienne does want to restart the phentermine OV 09/13/18:Here for her routine aptFeels wellDid do labsOV 11/29/18:Here for her post hospital aptShe is doing well nowAdrienne did have diverticulitis and now is to get a c-scope with Dr GuevaraOV 01/24/19:Here for her routine aptShe feels Miguel A has done labs for the hepatologistDoes have a rash on the post L earOV 04/18/2019:Here for her routine aptShe feels Miguel A does have a bump on the L thumbShe bumped the thumb while carrying a tub about 2 weeksShe is L HDOV 08/22/2019:Here for her routine aptShe feels wellDid see Dr Valladares but wants to now see Dr Haas has seen a new derm Dr Méndez is also wanting to get back on the phentermine as she has regained her weight up to 20 pounds, she has taken this in the past and has done very well with itOV 11/07/2019;Here for her routine aptShe is doing wellShe did see Dr Riddle, s/p surgery and the wound is healed on the neckShe also did see Dr Blanton and also did her labsShe would like to get back on the phentermineOV 12/13/2019:Here for her phentermine renewalShe states that she is doing wellShe has been trying to dietNo complaints todayOV 01/24/2020:Here for her phentermine medicationShe feels very wellShe has continued to lose weight and has tolerated the phentermine very well, has noted some tachycardia but no other symptomsShe is here also for her flu shotOV 02/14/2020;ACV:C/o L sided neck pain since last Wednesday or soFeels that this could be from her raising the head end of the bed to help with her heartburnNow pain in the L side, cannot turn the head to the L and to the backNo N/T or weakness in the UE or LENo relief with the PT that she has been gettingOV 05/29/2020:Here for her routine aptShe feels well OV 10/15/2020:Here for her routine aptShe is doing wellSoziel did do the labs yesterday OV 04/22/2021:Here for her routine aptShe feels Miguel A is now referred herself to do gastric lap band surgeryShe did see cardiologyOV 09/02/2021:Here for her routine aptShe is doing wellNo new labs notedOV 11/04/2021:Here for her routine aptShe is doing well, she did do the labs on 11/03/2021, she is s/p surgery OV 03/10/2022:Here for her f/u apt, she feels well, labs done on 03/09/2022 OV 06/29/2022:Here for her f/u apt, she is s/p appy done on 06/25, by Dr Soto, now is doing well, here with her , no new labs OV 09/24/2022: Here for her f/u apt, she is doing well today OV 11/23/2022: Here for her ACV, see case, c/o 'spider bite', now is swollen and tender, did note a fever but none now OV 02/23/2023: Here for her f/u apt, she is recently d/c from the hospital for diverticulitis and c.diff, is doing well now OV 06/15/2023: Here for her f/u apt, she is also here for her MWV, is doing well today OV 11/02/2023: Here for her f/u apt, she is doing very well today, she would like a referral to GI to get her c-scope, she is here with her OV 02/08/2024: ACV: Here with c/o L shoulder pain, was on a camping trip and over stretched her L shoulder in September of this year, it has been steadily getting worse, and now has a cramping achy pain in the anterior shoulder area, she is RHD, no N/T or weakness noted Saman Rosa MD [address] [facility], [address], [place], [address], [place] [facility] 02/08/2024 18:23:49 05/04/2024 text/html 01/04/17CV:Here as she has neck pain that radiates down into her R armFeels that the pain is 'bad enough' so she does not sleepShe states that she feels that the work stress caused this also, she has done ice and heat and massage, she feels that it is a constant pain, and goes to her handShe is L HD but uses her R hand alsoShe denies any remote or acute traumaGradual in onset, more on the R lower neck, sharp, worse with laying on the L side, better with ice and the tramadolNo N/T in the arm or the forearm and hand, but has pain in the hand and in the shoulderShe feels that the chemical pathologist is good.She is using an ergonomic mouse and cavazos boardOV 01/26/17:S/p fracture of R wrist and it is now in cast, and did see an ortho and was in the UC 01/18/17, and was seen in [facility] ER on 01/18/17 treated with vicodin, and then was seen CNE with Dr. Irby and he put in a hard cast , and is to see him on 02/17/17, no surgery and is doing well this timeOV 04/29/17:She states that she is here as she has been having some chest painsShe states that she was seen in the ER, and was admitted and then she did have a stress testShe states that she is to follow up with Dr Graham the cardiologistToday she states that she is still having chest pain, this is described as a sharp discomfort in the mid chest and feels like a pressure, this is persistent and not related to any exertionNo SOB, BRUNO or PNDNo presyncope or syncopeOV 05/04/17:She is here as she was seen in the ERShe feels that she is doing well at this timeShe was told to keep her apt with the heel room supervisor OV 06/01/17:Here for her review to see how the zoloft is workingAdrienne states that it is helped a lotShe is here with her husbandOV 08/31/17:Here for her routine aptShe states that she is doing wellNo new labsOV 03/01/18:Here for her 6 month aptShe feels that she is doing Miguel A did do the labs on 02/25/18OV 06/03/18:Here for her routine aptFeels Miguel A did do the labs on 05/31/18 and is here to review theseAdrienne does want to restart the phentermine OV 09/13/18:Here for her routine aptFeels wellDid do labsOV 11/29/18:Here for her post hospital aptShe is doing well nowAdrienne did have diverticulitis and now is to get a c-scope with Dr GuevaraOV 01/24/19:Here for her routine aptShe feels Miguel A has done labs for the hepatologistDoes have a rash on the post L earOV 04/18/2019:Here for her routine aptShe feels Miguel A does have a bump on the L thumbShe bumped the thumb while carrying a tub about 2 weeksShe is L HDOV 08/22/2019:Here for her routine aptShe feels wellDid see Dr Valladares but wants to now see Dr Haas has seen a new derm Dr Méndez is also wanting to get back on the phentermine as she has regained her weight up to 20 pounds, she has taken this in the past and has done very well with itOV 11/07/2019;Here for her routine aptShe is doing wellShe did see Dr Riddle, s/p surgery and the wound is healed on the neckShe also did see Dr Blanton and also did her labsShe would like to get back on the phentermineOV 12/13/2019:Here for her phentermine renewalShe states that she is doing wellShe has been trying to dietNo complaints todayOV 01/24/2020:Here for her phentermine medicationShe feels very wellShe has continued to lose weight and has tolerated the phentermine very well, has noted some tachycardia but no other symptomsShe is here also for her flu shotOV 02/14/2020;ACV:C/o L sided neck pain since last Wednesday or soFeels that this could be from her raising the head end of the bed to help with her heartburnNow pain in the L side, cannot turn the head to the L and to the backNo N/T or weakness in the UE or LENo relief with the PT that she has been gettingOV 05/29/2020:Here for her routine aptShe feels well OV 10/15/2020:Here for her routine aptShe is doing wellSoziel did do the labs yesterday OV 04/22/2021:Here for her routine aptShe feels Miguel A is now referred herself to do gastric lap band surgeryShe did see cardiologyOV 09/02/2021:Here for her routine aptShe is doing wellNo new labs notedOV 11/04/2021:Here for her routine aptShe is doing well, she did do the labs on 11/03/2021, she is s/p surgery OV 03/10/2022:Here for her f/u apt, she feels well, labs done on 03/09/2022 OV 06/29/2022:Here for her f/u apt, she is s/p appy done on 06/25, by Dr Soto, now is doing well, here with her , no new labs OV 09/24/2022: Here for her f/u apt, she is doing well today OV 11/23/2022: Here for her ACV, see case, c/o 'spider bite', now is swollen and tender, did note a fever but none now OV 02/23/2023: Here for her f/u apt, she is recently d/c from the hospital for diverticulitis and c.diff, is doing well now OV 06/15/2023: Here for her f/u apt, she is also here for her MWV, is doing well today OV 11/02/2023: Here for her f/u apt, she is doing very well today, she would like a referral to GI to get her c-scope, she is here with her OV 02/08/2024: ACV: Here with c/o L shoulder pain, was on a camping trip and over stretched her L shoulder in September of this year, it has been steadily getting worse, and now has a cramping achy pain in the anterior shoulder area, she is RHD, no N/T or weakness noted OV 05/04/2024: Here for her f/u apt, she is doing well today, has done her labs on 05/03/2024 Saman Rosa MD [address] [place] [address] [address], [address] [address], [place], [address], [facility] 05/19/2024 11:39:37 OBGyn Episode No OBEpisode recorded.
== END 2024-08-02 13:32 | disposition home or self-care (01) ==
PROVIDERS: PCP Internal Medicine; Visit Provider Nurse Practitioner
DX: R74.01 Elevation of levels of liver transaminase levels (principal); R10.13 Epigastric pain
CPT/HCPCS: 74183

== ENCOUNTER 2024-11-07 02:34 | Day surgery (SDC) | payer MEDICARE, OTHER, SELFPAY ==
[2024-11-01 13:25] VITALS: BMI 37.8
--- OUTSIDE RECORDS SUMMARY | 2024-11-07 02:36 | XMS_ITS | Continuity of Care Document ---
Author Organization [facility] Address [address] [place] [address] [address] [place] [address] Phone Care Team Providers Care Data Entry Technician Name Role Phone Micaela Boudreaux DO Unavailable Unavailable Procedures Procedure Date [facility] Drug Screen Collection Medical Review Officer Advance Directives Directive Yes / No Effective Date File Name No Information Encounters Encounter Description Practice Location Reason(s) For Visit Diagnoses Date Provider Providers Copied on Encounter [facility], [address] [place], [place] [address], [id number], tel:[phone] [facility] Occupational Health Examination 2 Kanika Hinojosa. [address] [place] [address], [address] [address], [place], [place], [id number] , . tel:[phone] Family History Family Member Type Diagnosis Age At Onset No Information Payers Payer name Insurance type Covered constitution party ID Authoriza tion(s) [employer] [id number] Social History Type Description Quantity Date Captured [...]
--- OUTSIDE RECORDS SUMMARY | 2024-11-07 02:36 | XMS_ITS | Continuity of Care Document ---
Author Name [facility] Organization [facility] Care Team Providers Care Timber Rider Name Role Phone [facility] Unavailable Unavailable Medications Combined list of outpatient [...] 4 2024 90.0 Ambulat ory Pharmac y bumetanide 1 mg tablet See Instruct ions, # 90 EA, 2 total refill(s ), Soft Stop Ordered 5 2024 90.0 Ambulat ory Pharmac y dexamethaso [...] 4 2024 180.0 Ambulat ory Pharmac y lisinopril 10 mg tablet = 1 tab(s), Oral, Daily, # 90 EA, 2 total refill(s ), Soft Stop Oral (given by mouth) Ordered 5 2024 90.0 Ambulat ory Pharmac y meloxicam 15 mg tablet See Instruct ions, Oral, # 30 EA, 2 total refill(s ), Hard Stop Oral (given by mouth) Ordered 02/13/2025 5 2024 30.0 Ambulat ory Pharmac y metoprolol tartrate 25 mg tablet See Instruct ions, # 180 EA, 2 total refill(s ), Hard Stop Complet ed 06/14/2024 4 2024 180.0 Ambulat ory Pharmac y metoprolol tartrate 25 mg tablet See Instruct ions, # 180 EA, 2 total refill(s ), Soft Stop Ordered 5 2024 180.0 Ambulat ory Pharmac y sertraline 25 mg tablet See Instruct ions, Oral, # 90 EA, 2 total refill(s ), Hard Stop Oral (given by mouth) Complet ed 06/14/2024 4 2024 90.0 Ambulat ory Pharmac y Allergies, Adverse Reactions, Alerts Combined list of allergies from Department of Defense and Veterans Affairs facilities. It does not include entries that were removed or entered in error. 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 Location Location Details Encounter Type Encounter Number Reason For Visit Attending Provider ADM Date DC Date Status Disposition Source [facility] Visit [id number] 07/19 Discharge Disposition: Home or Self Care 0055C[facility] Visit [id number] 07/19 Discharge Disposition: Home or Self Care 0055C[facility] Visit [id number] 07/19 Discharge Disposition: Home or Self Care 0055C[facility] Visit [id number] 08/17 Discharge Disposition: Home or Self Care 0055C[facility] Procedures Combined list of: 1) Procedures from Department of Veterans Affairs facilities going back up to thelast 18 months, not all [place] non-surgical procedures are included; 2) All procedures from the Department of Defense facilities. Procedure Procedure Type Code Date Perfomer Comments Sourc e No data available for this section Ambulatory P harmacy Social History Combined list of available smoking, tobacco, and other social history from Department of Defense and Veterans Affairs facilities. Social History Type Response Date Comment Sourc e Sexual Orientation Ambula tory Pharmacy Gender identity Ambulator y Pharmacy Sex Representation Female (finding) Unknown Organization Assessment and Plan Combined list of future care activities from Department of Defense and Veterans [facility] facilities (e.g., assessment and plan notes, appointments, orders, and referrals). Additional future care activities may be listed in the Plan of Care section. Result Assessment and Plan Date Source Assessment and Plan No data available for this section 11/07/2024 Ambulatory Pharmacy Functional Status Combined list of recent functional and cognitive assessments recorded at Department of Defense and Veterans Affairs ([place]).VA Functional [place] Measurement (FIM) Scale: 1 = Total Assistance (Subject = 0% +), 2 = Maximal Assistance (Subject = 25% +), 3 = Moderate Assistance (Subject = 50% +), 4 = Minimal Assistance (Subject = 75% +), 5 = Supervision, 6 = Modified [place] (Device), 7 = Complete [place] (Timely, Safely). Assessment Date/Time Source Assessment Type Assessment Skill Assessment Score Assessment Details No data available for this section
--- OUTSIDE RECORDS SUMMARY | 2024-11-07 02:36 | XMS_ITS | Clinical Summary ---
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 Gender Identity Not on file Sexual Orientation [...] 8:00 AM CDT Height 154.9 cm (5' 1) 08/18/2021 8:00 AM CDT Body Mass Index [...] 2) 02/19/2019 12/25/2018, 12/22 OSTEOPOROSIS SCREENING 2023 Pre-Diabetes and Diabetes Screening 08/19/2024 08/19/2021 INFLUENZA VACCINE (#1) 2024 , 12/22/2018, 03/01/2018, Additional history exists DTAP/TDAP/TD VACCINES (2 - T d or Tdap) 03/01/2028 03/01/2018 Medical Devices Implanted Type Area Diesel Engine Mechanic Device Identifier Shelf Expiration Date Model / Serial / Lot Seamguard Endogia 60 Prpl [id number] - [id number] Implanted:Qt y: 1 on 08/18/2021 by Chago Chirinos MD at [facility] N/A: Abdomen [employer] [id number] 04/23/2024 12BSGTRI 60P / / [id number] Seamguard Endogia 60 Prpl [id number] - [id number] Implanted:Qt y: 1 on 08/18/2021 by Chago Chirinos MD at [facility] N/A: Abdomen [employer] [id number] 04/23/2024 12BSGTRI 60P / / [id number] Seamguard Endogia 60 Blk [id number] - [id number] Implanted:Qt y: 1 on 08/18/2021 by Chago Chirinos MD at [facility] N/A: Abdomen [employer] [id number] 03/22/2024 12BSGTRI 60B / / [id number] Seamguard Endogia 60 Blk [id number] - [id number] Implanted:Qt y: 1 on 08/18/2021 by Chago Chirinos MD at [facility] N/A: Abdomen [employer] [id number] 03/22/2024 12BSGTRI 60B / / [id number] Procedures Procedure Name Priority Date/Time Associated Diagnosis Comments HEMOGLOBIN A1C Routine 08/19/2021 5:10 AM CDT MAMMO SCREEN BILAT W OR WO CAD Routine 11/04/2009 from Last 3 Months or Most Recently Relevant to Health Maintenance Results * (ABNORMAL) HEMOGLOBIN A1C (08/19/2021 5:10 AM CDT) HEMOGLOBIN A1C 6.6(H) <=5.6 % 08/19/2021 6:15 AM CDT [facility] EST. AVG GLUCOSE, A1C 143 mg/dL 08/19/2021 6:15 AM CDT [facility] Blood Venipuncture / Unknown 08/19/2021 5:10 AM CDT 08/19/2021 5:56 AM CDT Narrative [facility] - 08/19/2021 6:15 AM CDT HGB A1C INTERPRETATION NORMAL: <5.7% PRE-DIABETES: 5.7 - 6.4% DIABETES: 6.5% OR GREATER Mamie Villaseñor MD CHEMISTRY ORDERABLES Final Result [facility] CLIA# [id number] [address] [place] [address] * MAMMO DIGITAL SCREEN BILAT (11/04/2009) Anatomical Region Laterality Modality Breast Bilateral Other Herb Mirza MD MAMMO ORDERABLES Final Result from Last 3 Months or Most Recently Relevant to Health Maintenance Insurance [employer] [address] [employer] [facility] [place] [facility] Advance Directives For more information, please contact: [phone] * Full Code (Latest Code Status on File) Date Activated Date Inactivated Comments 08/18/2021 12:34 PM 08/19/2021 5:08 PM * Full Code Date Activated Date Inactivated Comments 08/18/2021 7:52 AM 08/18/2021 12:34 PM * Full Code Date Activated Date Inactivated Comments 01/15/2010 10:58 AM 01/15/2010 6:15 PM * Full Code Date Activated Date Inactivated Comments 01/15/2010 10:30 AM 01/15/2010 10:58 AM Care Teams Manager Dental Relationship Specialty Start Date End Date Ruhtann Rosa MD PCP - General Internal Medicine 06/03/21
--- OUTSIDE RECORDS SUMMARY | 2024-11-07 02:36 | XMS_ITS | Clinical Summary ---
Author Organization [facility] Address [address] [address] Care Team Providers Care Internal Affairs Commander Name Role Phone Ruthann Rosa MD Primary Care Provider Source Comments [facility],non-owned Affiliates and Associated Physician Practices is amultiple site organization consisting of ambulatory clinics and hospital sitesin [place], [place], [place] and [place]. This disclosure is being madepursuant to the Care Everywhere program and may not contain all information available regarding this patient. 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 Gender Identity Not on file Sexual Orientation [...] 12:43 PM CDT Height 154.9 cm (5' 1) 07/04/2024 12:43 PM CDT Body Mass Index 38.66 07/04/2024 12:43 PM CDT Plan of Treatment Upcoming Encounters Date Type Department Care Team (Late st Contact Info) Description 07/03/2025 11:30 AM CDT Procedure visit [facility] [address], [place] [id number] 07/03/2025 12:00 PM CDT Office Visit [facility] [place] [address] [place] [phone] Mamie Chacon M, MISSION COORDINATOR-AREA SAFETY MANAGER [address] [place] [address] [place] [address] Health Maintenance Due Date Last Done Comments [...] VACCINE (1 of 2) 2008 COVID-19 VACCINE (4 - 2023- season) 2023 03/28/2021, 06/18/2020, 05/28/2020 DEPRESSION SCREENING 03/29/2024 SCREENING FOR DIABETES 08/19/2024 2, 08/19/2021, 08/19/2021, Additional history exists INFLUENZA VACCINE (#1) 2024 4, 02/09/2023, 03/10/2022, Additional history exists LIPID TESTING 07/15/2027 07/14/2022, 03/30, 01/11/2019 Respiratory Syncytial Virus (RSV) Vaccine Pt: or over 60 yrs (1 - 1-dose 75+ series) 2033 HEPATITIS C SCREENING Completed 08/19/2021 HEPATITIS B VACCINE Aged Out No longe [...] Procedure Name Priority Date/Time Associated Diagnosis Comments LIPID PROFILE (EXTERAL RESULT ENTRY) Routine 07/14/2022 8:31 AM CDT COMPREHENSIVE METABOLIC PANEL Routine 01/14/2021 5:04 PM CDT Elevated liver enzymes from Last 3 Months or Most Recently Relevant to Health Maintenance Results * LIPID PROFILE (EXTERAL RESULT ENTRY) (07/14/2022 [...] (ABNORMAL) COMPREHENSIVE METABOLIC PANEL (01/14/2021 5:04 PM CDT) BUN 14 7 - 26 mg/dL 01/14/2021 5:40 PM [facility] Creatinine 0.81 0.56 - 0.96 mg/dL 01/14/2021 5:40 PM [facility] Sodium 142 136 - 145 mmol/L 01/14/2021 5:40 PM [facility] Potassium 3.7 3.5 - 4.5 mmol/L 01/14/2021 5:40 PM [facility] Chloride 105 98 - 107 mmol/L 01/14/2021 5:40 PM [facility] CO2 26 22 - 29 mmol/L 01/14/2021 5:40 PM [facility] Glucose 92 70 - 115 mg/dL 01/14/2021 5:40 PM [facility] Calcium 10.1 8.4 - 10.2 mg/dL 01/14/2021 5:40 PM [facility] Protein Total 7.6 6.0 - 8.3 g/dL 01/14/2021 5:40 PM [facility] Albumin 4.2 3.4 - 5.0 g/dL 01/14/2021 5:40 PM [facility] Bilirubin Total 0.4 0.2 - 1.2 mg/dL 01/14/2021 5:40 PM [facility] Alkaline Phosphatase 85 40 - 150 U/L 01/14/2021 5:40 PM [facility] ALT 28 5 - 55 U/L 01/14/2021 5:40 PM [facility] AST 40(H) 5 - 34 U/L 01/14/2021 5:40 PM [facility] Anion Gap 15 8 - 18 01/14/2021 5:40 PM [facility] BUN/Creatinine Ratio 17 7 - 23 01/14/2021 5:40 PM [facility] Osmolality Calculated 294 270 - 300 mOsm/kg 01/14/2021 5:40 PM [facility] Albumin/Globulin Ratio 1.2 1.1 - 2.3 01/14/2021 5:40 PM [facility] eGFR by CKD-EPI 78(L) >=90 mL/min/1.7 3 m2 01/14/2021 5:40 PM CDT [facility] Blood BLOOD SPECIMEN / Unknown Lab Venipuncture / Unknown 01/14/2021 5:04 PM CDT 01/14/2021 5:09 PM CDT Mamie Chacon MISSION COORDINATOR-AREA SAFETY MANAGER LAB - CHEMISTRY SARA CASTRO Final Result Performing Organization Address City/State/[facility] Co de Phone Number [facility] [address] [place] [address], [facility] [phone] from Last 3 Months or Most Recently Relevant to Health Maintenance Insurance MEDICARE Care Teams Internal Affairs Commander Relationship Specialty Start Date End Date Ruthann Rosa MD [address] [facility] [address] [place] [address] PCP - General Internal Medicine 09/19/18
--- OUTSIDE RECORDS SUMMARY | 2024-11-07 02:36 | XMS_ITS | Clinical Summary ---
Author Organization [facility] [address] [place] [phone] Care Team Providers Care Research Executive Name Role Phone Nila Rosa MD Primary [...] 09/07/2019 C5-6, C6-[address] Riddle at [facility]. SALPINGECTOMY left CATARACT EXTRACTION 12/05/2020 Left Medical [...] 19 Well Visit 65+ 2023 Influenza Vaccine (#1) 2024 0, 12/22/2018, 12/22/2018, Additional history exists DTaP/Tdap/Td Vaccine (2 - Td or Tdap) 03/01/2028 03/01/2018 Zoster Vaccine Completed 12/25/2018, 11/28, 10/07/2018 Medical Devices Implanted Type Area Score Caller Device Identifier Shelf Expiration Date Model / Serial / Lot K2m [facility] [id number] Od4 Mm L14 Mm Self Tap Spine Screw Bone Magenta - [id number] Implanted:Qty: 6 on 09/07/2019 by Jono Riddle MD at [facility] [employer] [id number] / / [employer] [id number] Plate 42mm Bone [employer] Spine Cervical 2 Level Translational Nonsterile Latex Free - [id number] Implanted:Qty: 1 on 09/07/2019 by Jono Riddle MD at [facility] [employer] [id number] / / [employer] [id number] [employer] [place] 7 D L13mm X W16mm X H9mm Sterile Latex Free Cervical Interbody System - [id number] Implanted:Qty: 1 on 09/07/2019 by Jono Riddle MD at [facility] [employer] [id number] 09/04/2023 [id number] / / [id number] [employer] [id number] Cage Spinal [place] 7 D L13mm X W16mm X H9mm Sterile Latex Free Cervical Interbody System - [id number] Implanted:Qty: 1 on 09/07/2019 by Jono Riddle MD at [facility] [employer] 09/04/2023 [id number] / / [id number] Insurance Advance Directives For more information, please contact: [phone] * Full Code (Latest Code Status on File) Date Activated Date Inactivated Comments 09/07/2019 5:45 PM 09/08/2019 7:52 PM Care Teams Research Executive Relationship Specialty Start Date End Date Nila Rosa MD [address] [facility] [address] [place] [address] PCP - General Internal Medicine 01/19/17 [place] [id number] [address] Consulting Physician Obstetrics and Gynecology 02/28/19
--- OUTSIDE RECORDS SUMMARY | 2024-11-07 02:36 | XMS_ITS | Encounter Summary ---
Author Organization [facility] Address [address] [place] [address] Care Team Providers Care Truck Railroad And Bus Motor Mechanic Name Role Phone Ruthann Rosa MD Primary Care Provider Reason for Visit * Reason Onset Date Comments Medical management 08/18/2021 Gave message to PHARMACIST AIDE Amaya /jess pickard Encounter Details Date Type Department Care Team (Late st Contact Info) Description 08/18/2021 Telephone [facility] Admitting [address] [place] [address] [place] [address] [place] [address] [place] [address] Medical management (Gave message to PHARMACIST AIDE Amaya pickard) Social History Tobacco Use Types Packs/Day Years Used Date Smoking Tobacco: Former Cigarettes Q uit: 08/27/2009 Smokeless Tobacco: Never Alcohol Use Standard Drinks/Week Comments Yes 0 (1 standard drink = 0.6 oz pur e alcohol) rarely Comments No Sex and Gender Information Value Date Recorded Sex Assigned at Not on file 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
--- OUTSIDE RECORDS SUMMARY | 2024-11-07 02:36 | XMS_ITS ---
Author Organization [facility] [address] [place] [phone] Care Team Providers Care Pulp Mixer Name Role Phone Nila Rosa MD Primary [...]
[2024-11-07 09:55] VITALS: BP 175/94; PULSE 88; RESP 20; TEMP 36.7; O2SAT 97; BMI 39.0
[2024-11-07] MEDS: LACTATED RINGERS 1,000 ML 150 ML IV CONT (10:08)
--- NOTE | 2024-11-07 10:26 | WPDANESEPPF ---
Anes - Initial Pre Proc Eval Procedure: Operation Date: 11/07/24 10:45 Proposed Procedures p Esophagogastroduodenoscopy - Preston Rodas MD Date/Time: 11/07/24 10:26 Surgeon: Preston Rodas MD Pre Op Diagnosis: Gastro-esophageal reflux disease without esophagit Patient Data Age: 64 Gender: F Height: 1.55 m Weight: 93.8 kg Last Vital Signs Temp 98.1 F 11/07/24 09:55 Pulse 88 11/07/24 09:55 Resp 20 11/07/24 09:55 BP 175/94 H 11/07/24 09:55 Pulse Ox 97 11/07/24 09:55 Allergies Allergy/AdvReac Type Severity Reaction Status Date / Time Sulfa (Sulfonamide Allergy Intermediate Itching Verified 11/07/24 09:52 Antibiotics) Biberzi Allergy Intermediate Abdominal Uncoded 11/07/24 09:52 Pain Home Medications ?Medication ?Instructions ?Recorded ?Confirmed ?Type cholecalciferol (vitamin D3) 50 50 mcg PO DAILY 04/18/24 11/01/24 History mcg (2,000 unit) chewable tablet lactobacillus combo no.11 15 1 cap PO DAILY 04/18/24 11/01/24 History billion cell sprinkle capsule (Probiotic) multivitamin (Daily Multi-Vitamin 1 tablet PO DAILY 04/18/24 11/01/24 History tablet) cyanocobalamin (vitamin B-12) 1,000 mcg IM .q3w 11/01/24 11/01/24 History 1,000 mcg/mL injection solution esomeprazole magnesium 20 mg 20 mg PO DAILY 11/07/24 11/07/24 History capsule,delayed release (Nexium) Patient hx anesthesia problems: none Family hx anesthesia problems: none Results Review: All pre-operative results and documents have been reviewed as part of the pre-operative evaluation. [facility] Past Medical History Medical History GERD (gastroesophageal reflux disease) Adenomatous polyps ARLINE (obstructive sleep apnea) History of atrial fibrillation Cervical fusion syndrome Obesity Anxiety Colon cancer screening Surgical History Surgical History H/O gastric bypass Social History Social History Smoking packs per day: 1 Smoking cigarettes per day: 20.0 Years smoked: 15 Smoking pack-years: 15.00 Smoking status: Former smoker Tobacco type: cigarettes Alcohol intake: never Substance use: never Substance use type: does not use Living arrangements: with family Spiritual care concerns: No Anes - Eval Final PreProcedure Day of Procedure 11/07/24 10:26 Patient weight: obese Lungs: normal air movement Airway: Mallampati scale class II Neurological: alert and oriented Last oral intake: >/= 8 hours ASA classification: II Emergent: no Anesthetic plan: proceed Anesthesia type and monitoring: general GIVS and standard monitoring Results Review: All pre-operative results and documents have been reviewed as part of the pre-operative evaluation. Remote hx of afib, none since 2014 and off all meds. GERD. Informed Consent: The patient's anesthetic plan and its attendant risks and benefits were discussed with the patient/family/POA. Questions were solicited and answers provided to the satisfaction of the patient/family/POA.
[2024-11-07 10:33] VITALS: BP 175/82
--- NOTE | 2024-11-07 10:50 | WPDHPUPDATE1 ---
History and Physical Update Update Date/Time: 11/07/24 10:50 History and Physical has been reviewed, including an updated exam of the patient. There are NO changes in the patient's condition. Risks, benefits, and alternatives have been discussed and questions answered. Patient agrees to proceed with procedure.
--- NOTE | 2024-11-07 10:58 | S_PTH ---
PATIENT: Vandana Gilbert LOC: [facility]#:[id number] AGE/SX: 64/F ROOM: RE11/07/[address]: Preston Rodas MD : 1960 BED: DIS: 11/07/2024 SPEC #: [id number] RECD: 11/07/24 11:49 STATUS: SEBASTIAN REEmily #: [id number] DAVONTE: 11/07/24 10:[address]: Preston Rodas DEPT: [facility] Surgical RECD BY: Wes Pabon ENTERED: 11/07/24 11:49 SP TYPE: Surgical OTHR DR: Ruthann RosaMD Tissues: A - Gastric Biopsy Procedures: Hematoxylin and Eosin Stain Gross and Microscopic Level 4
[2024-11-07 11:00] VITALS: BP 157/91; PULSE 72; RESP 21; O2SAT 97
[2024-11-07 11:10] VITALS: BP 142/76; PULSE 67; RESP 18; O2SAT 99
[2024-11-07 11:20] VITALS: BP 163/84; PULSE 64; RESP 17; O2SAT 99
== END 2024-11-07 11:30 | disposition home or self-care (01) ==
PROVIDERS: PCP Internal Medicine; Referring Provider Nurse Practitioner Family; Visit Provider Internal Medicine Gastroenterology
PROC: 0DJ08ZZ Inspection of Upper Intestinal Tract, Via Natural or Artificial Opening Endoscopic (ICD-10-PCS; CPT 43239; principal; 2024-11-07 10:45)
DX: K21.00 Gastro-esophageal reflux disease with esophagitis, without bleeding (principal); E78.5 Hyperlipidemia, unspecified; G47.33 Obstructive sleep apnea (adult) (pediatric); I12.9 Hypertensive chronic kidney disease with stage 1 through stage 4 chronic kidney disease, or unspecified chronic kidney disease; N18.9 Chronic kidney disease, unspecified; F41.9 Anxiety disorder, unspecified; I48.91 Unspecified atrial fibrillation; E66.9 Obesity, unspecified; Z68.39 Body mass index [BMI] 39.0-39.9, adult; Z98.890 Other specified postprocedural states; Z90.49 Acquired absence of other specified parts of digestive tract; Z98.84 Bariatric surgery status; Z98.1 Arthrodesis status; Z87.19 Personal history of other diseases of the digestive system; Z86.0100 Personal history of colon polyps, unspecified; Z87.891 Personal history of nicotine dependence
CPT/HCPCS: 43239; 88305; J2003; J2704; J7120